=== PATIENT | male | born 1965 | race Caucasian/White ===

== ENCOUNTER → 2019-07-04 10:59 | Outpatient (BNVA) | payer MEDICARE, SELFPAY | PROVIDERS: Family Provider Family Medicine; PCP Family Medicine; Visit Provider Family Medicine | DX: E11.9 Type 2 diabetes mellitus without complications (principal); E78.2 Mixed hyperlipidemia; Z79.4 Long term (current) use of insulin; J44.9 Chronic obstructive pulmonary disease, unspecified; I10 Essential (primary) hypertension | CPT/HCPCS: 80053; 80061; 83036; 84443; 85025 ==

== ENCOUNTER → 2020-03-12 16:54 | Outpatient (BNVA) | payer MEDICARE, SELFPAY | PROVIDERS: Family Provider Family Medicine; PCP Family Medicine; Visit Provider Family Medicine | DX: E11.9 Type 2 diabetes mellitus without complications (principal) | CPT/HCPCS: 80053; 80061; 83036; 83721; 85025 ==

== ENCOUNTER → 2020-07-31 12:02 | Outpatient (BNVA) | payer MEDICARE, SELFPAY | PROVIDERS: PCP Family Medicine; Visit Provider Family Medicine | DX: E11.9 Type 2 diabetes mellitus without complications (principal); I10 Essential (primary) hypertension; E78.5 Hyperlipidemia, unspecified; J44.9 Chronic obstructive pulmonary disease, unspecified | CPT/HCPCS: 80053; 80061; 83036; 84443; 85025 ==

== ENCOUNTER → 2020-12-04 13:40 | Outpatient (BNVA) | payer MEDICARE, SELFPAY | PROVIDERS: PCP Family Medicine; Visit Provider Family Medicine | DX: E11.65 Type 2 diabetes mellitus with hyperglycemia (principal); J44.9 Chronic obstructive pulmonary disease, unspecified; E78.5 Hyperlipidemia, unspecified; I10 Essential (primary) hypertension; E11.9 Type 2 diabetes mellitus without complications; E78.2 Mixed hyperlipidemia; Z79.4 Long term (current) use of insulin | CPT/HCPCS: 80053; 80061; 83036; 84443; 85025 ==

== ENCOUNTER → 2020-12-29 08:43 | Outpatient (BNVA) | payer MEDICARE, SELFPAY | PROVIDERS: PCP Family Medicine; Visit Provider Family Medicine | DX: E11.65 Type 2 diabetes mellitus with hyperglycemia (principal); Z79.4 Long term (current) use of insulin; E78.2 Mixed hyperlipidemia; J44.9 Chronic obstructive pulmonary disease, unspecified; I10 Essential (primary) hypertension | CPT/HCPCS: 80053; 80061; 84443 ==

== ENCOUNTER 2021-01-14 13:28 | Outpatient (CLI) | payer MEDICARE, SELFPAY ==
--- NOTE | 2021-01-14 14:15 | USCV_ITS ---
Adolfo Barton Age: 55 Gender: M : 1965 Exam Date: 01/14/2021 14:27 Ordering Phys: Yun Jones Technologist: Exam [place] [facility] [place]: CHEST PAIN BP: 143 / 75 HR: 76 Rhythm: Sinus Technical Quality: Very technically difficult study MEASUREMENTS (Male / Female) Normal Values 2D ECHO LV Diastolic Diameter PLAX 3.9 cm 4.2 - 5.9 / 3.9 - 5.3 cm LV Systolic Diameter PLAX 3.1 cm IVS Diastolic Thickness 1.4 cm 0.6 - 1.0 / 0.6 - 0.9 cm IVS Systolic Thickness 1.5 cm LVPW Diastolic Thickness 1.4 cm 0.6 - 1.0 / 0.6 - 0.9 cm LVPW Systolic Thickness 1.5 cm LVOT Diameter 2.1 cm LV Ejection Fraction 2D Teich 41.2 % LV Ejection Fraction MOD 2C 53.6 % LV Ejection Fraction 2C AL 53.8 % LA Diameter 4.3 cm LA Width 3.9 cm LA Height 4.8 cm RA Width 4.2 cm RA Height 5.0 cm Aorta at Sinotubular Diameter 3.0 cm DOPPLER AV Peak Velocity 113.0 cm/s LVOT Peak Velocity 89.0 cm/s AV Area Cont Eq vti 3.5 cm squared AV Area Cont Eq pk 2.7 cm squared MV Area PHT 5.0 cm squared Mitral E to A Ratio 0.8 MV E' Velocity 34.5 cm/s Mitral E to MV E' Ratio 15.9 Mitral E to LV E' Lateral Ratio 15.9 Mitral E to LV E' Septal Ratio 16.3 TR Peak Velocity 144.0 cm/s TR Peak Gradient 8.3 mmHg TV Peak E Velocity 57.0 cm/s Right Atrial Pressure 3.0 mmHg Pulmonary Artery Systolic Pressu 11.3 mmHg FINDINGS Left Ventricle Possibly normal LV size and ejection fraction. Some features of left ventricular diastolic dysfunction. Segmental wall motion analysis difficult because of the poor ultrasonic window. Right Ventricle Possibly of normal size. Right Atrium Could not be visualized well Left Atrium Possibly of normal size. Mitral Valve No gross abnormalities noted. Leaflet could not visualized well Aortic Valve The leaflets could not visualize well. Normal velocity across the valve. Tricuspid Valve Tricuspid valve not well visualized. Pulmonic Valve Pulmonic valve not well visualized. Pericardium No pericardial effusion. Aorta Possibly of normal size CONCLUSIONS Possibly normal LV size and ejection fraction. Some features of left ventricular diastolic dysfunction. Segmental wall motion analysis difficult because of the poor ultrasonic window. Possibly normal chamber sizes. No significant stenotic or regurgitant lesions were noted. No pericardial effusion. No previous study is available for comparison. Dr Teddy Preciado MD FACC (Electronically Signed) Final Date: 14 January 2021 19:45 S
== END 2021-01-14 13:29 | disposition home or self-care (01) ==
PROVIDERS: PCP Family Medicine; Visit Provider Nurse Practitioner Family
DX: I25.10 Atherosclerotic heart disease of native coronary artery without angina pectoris (principal)
CPT/HCPCS: 93306

== ENCOUNTER → 2021-03-04 13:16 | Outpatient (BNVA) | payer MEDICARE, SELFPAY | PROVIDERS: PCP Family Medicine; Visit Provider Family Medicine | DX: J44.9 Chronic obstructive pulmonary disease, unspecified (principal); E11.65 Type 2 diabetes mellitus with hyperglycemia; Z79.4 Long term (current) use of insulin; I10 Essential (primary) hypertension; E78.2 Mixed hyperlipidemia; Z71.6 Tobacco abuse counseling; E11.42 Type 2 diabetes mellitus with diabetic polyneuropathy | CPT/HCPCS: 80053; 80061; 83036; 84443; 85025 ==

== ENCOUNTER 2021-03-27 09:43 | Outpatient (CLI) | payer MEDICARE, SELFPAY ==
[2021-03-27 10:07] VITALS: BMI 36.8
--- NOTE | 2021-03-27 10:07 | NMCV_ITS ---
NM becky perf SPECT r/s* [id number] Adolfo Barton Age: 56 Gender: M : 1965 Exam Date: 03/27/2021 10:07 Ordering Phys: Yun Jones Technologist: NILDA Joseph Exam Location: [facility] Indications: SHORTNESS OF BREATH STRESS TEST [facility] IMAGE PROTOCOL Rest/Stress 1 Exercise Day Radiopharmaceutical Dose (mCi) Administration Site Administered by Rest: Tc-99m 10.5 IV NILDA Harris Sestamibi Stress:Tc-99m 32.6 IV NILDA Harris Sestamibi Rest: 27-Mar-2021 60 Discovery 630 Stress: 27-Mar-2021 15 Discovery 630 Radiopharmaceutical was injected at 85 % maximum heart rate. Images obtained in supine and prone position. SPECT RESULTS Technical Quality: Good Raw Data Analysis: Normal Image Corrections: No attenuation or motion correction applied Summed Stress Score: 30 Summed Rest Score: 17 Summed Difference Score: 13 PERFUSION FINDINGS Large sized perfusion abnormality of moderate to severe severity in mid to apical anterior, mid to apical inferior and apical pierce with reversibility noted in entire anterior, mid anterolateral, mid inferior, mid infero-lateral and apical pierce on stress images. FUNCTIONAL RESULTS (calculated via Gated SPECT) Stress Image LV EF (%): 21 Stress EDV (mL):235 TID: 1.27 Stress ESV (mL):186 FUNCTIONAL FINDINGS: The left ventricle is dilated with stress. There is severely reduced left ventricular systolic function. The left ventricular ejection fraction is severely reduced with a value of 21%. There is global hypokinesis more pronounced in mid to apical anterior, lateral and apical pierce. Markedly increased end-diastolic end-systolic volumes. IMPRESSIONS 1. Large sized reversible perfusion abnormality of moderate to severe severity in basal to apical anterior, mid inferior, mid to apical lateral and apical pierce. 2. The left ventricle is dilated with stress. Transient ischemic dilation index increased at 1.27. 3. The left ventricular ejection fraction is severely reduced with a value of 21%. 4. There is global hypokinesis more pronounced in mid to apical anterior, lateral and apical pierce. 5. These findings are suggestive of multivessel coronary artery disease with large area of ischemia. 6. Decreased exercise tolerance. Equivocal EKG response to exercise due to baseline ST-T wave changes. Refer to separate report for details. 7. Scan indicates high risk for cardiac events. Chanell Esteves MD (Electronically Signed) Final Date: 30 March 2021 10:08 S
--- NOTE | 2021-03-27 10:07 | ECG_ITS ---
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 Interpretive Statements NAME OF STUDY: EXERCISE SESTAMIBI STRESS TEST INDICATION: Shortness of Breath Baseline blood pressure of 163/103 mm Hg, heart rate 89 beats per minute and oxygen saturation 98%. EKG showed normal sinus rhythm, normal axis. ST depression and biphasic to inverted T waves in leads II, 3, aVF. Possible old anteroseptal infarct. The patient exercised for 3 minutes 20 seconds on a standard Robby protocol. Patient attained a maximum heart rate of 144 beats per minute(88% of the maximum predicted heart rate) with a blood pressure at the peak exercise of 211/107 mmHg and oxygen saturation 96%. The EKG at the peak exercise revealed [address] depression in lead II 3, aVF with biphasic T waves. Patient did not have any chest pain or any significant arrhythmis with the exercise. The study was terminated due to exertional fatigue and shortness of breath. During the recovery phase, ST segment normalized but T waves become inverted in inferior leads. Blood pressure at the end of the recovery phase was 175/109 mm Hg with a heart rate of 85 beats per minute and oxygen saturation 98%. CONCLUSION: 1. Equivocal EKG response to treadmill exercise with horizontal up to [address] depression and T wave inversion in inferior leads (more pronounced at peak stress and at rest) 2. No exercise-induced chest pain or cardiac arrhythmia 3. Decreased exercise tolerance, attained a maximum of 4.6 METs. Maximum VO2 of 16.1 mL/kg/min. 4. Baseline hypertension with hypertensive response to exercise. 5. Perfusion scan will be documented separately. Electronically Signed On 03-30-2021 9:54:47 CDT by Chanell Esteves M.D. [id number]
[2021-03-27 12:03] VITALS: BP 175/109; PULSE 84
== END 2021-03-27 09:44 | disposition home or self-care (01) ==
LOC: CDL 09:46
PROVIDERS: PCP Family Medicine; Visit Provider Nurse Practitioner Family
DX: I20.9 Angina pectoris, unspecified (principal); R06.02 Shortness of breath; I10 Essential (primary) hypertension
CPT/HCPCS: 78452; 93017; A9500

== ENCOUNTER → 2021-06-29 12:13 | Outpatient (BNVA) | payer MEDICARE, SELFPAY | PROVIDERS: PCP Family Medicine; Visit Provider Family Medicine | DX: E11.65 Type 2 diabetes mellitus with hyperglycemia (principal); I10 Essential (primary) hypertension; E78.2 Mixed hyperlipidemia; J44.9 Chronic obstructive pulmonary disease, unspecified; E66.9 Obesity, unspecified; I25.10 Atherosclerotic heart disease of native coronary artery without angina pectoris; Z79.4 Long term (current) use of insulin | CPT/HCPCS: 80053; 80061; 83036; 85025 ==

== ENCOUNTER → 2021-09-23 09:44 | Outpatient (BNVA) | payer MEDICARE, SELFPAY | PROVIDERS: PCP Family Medicine; Visit Provider Internal Medicine | DX: I10 Essential (primary) hypertension (principal); E78.5 Hyperlipidemia, unspecified; E11.9 Type 2 diabetes mellitus without complications; I25.10 Atherosclerotic heart disease of native coronary artery without angina pectoris; R94.39 Abnormal result of other cardiovascular function study | CPT/HCPCS: 83036; 85025; 85610; 87635 ==

== ENCOUNTER → 2021-09-25 08:39 | Outpatient (BNVA) | payer MEDICARE, SELFPAY | PROVIDERS: PCP Family Medicine; Visit Provider Internal Medicine | DX: I10 Essential (primary) hypertension (principal); E78.5 Hyperlipidemia, unspecified; E11.9 Type 2 diabetes mellitus without complications; R94.39 Abnormal result of other cardiovascular function study | CPT/HCPCS: 80048; 80053; 80061 ==

== ENCOUNTER 2021-09-28 06:17 | Outpatient (CLI) | payer MEDICARE, SELFPAY ==
[2021-09-28] MEDS: diphenhydrAMINE 50 mg Capsule PO (06:30)
[2021-09-28 06:45] VITALS: BP 180/125; PULSE 89; RESP 16; TEMP 36.9; O2SAT 91; BMI 42.5
--- NOTE | 2021-09-28 07:00 | XACV_ITS ---
Exam Room: 2 Ht: 170 cm Wt: 123 kg BSA: 2.48 m2 Gender: Male : 1965 Any Known Allergies: Other Exam Priority: Routine Procedure(s): Procedure Description: Diagnostic procedure Procedure Description: Left Heart Catheterization Procedure Description: Left ventriculography Procedure Description: Coronary Angiography Diagnostic Cath Status: Elective Diagnostic Findings * 56-year-old man with past medical history of diabetes, hypertension and prior CO without interventions has been having chest pain symptoms on and off with exertion. He underwent stress test that showed large area of ischemia in multiple coronary territories. Plan for left heart cath with possible percutaneous coronary intervention. * Circumflex has no significant disease. * Right Coronary Artery is a small artery and has diffuse disease. * Proximal Left Anterior Descending to Mid Left Anterior Descending: total occlusion, J LUIS: 0 flow. Filled in the mid segment via collateral blood supply. * Left Main has no disease. * 1st Diagonal: total occlusion, J LUIS: 0 flow. * First Obtuse Marginal Branch Segment: obstructive 70% stenosis, J LUIS: 3 flow. * Second Obtuse Marginal Branch Segment: severe 90% stenosis, J LUIS: 3 flow. * Coronary angiography shows left dominance. Conclusions 1. Severe mulivessel coronary artery disease with PIPE INSPECTOR of LAD and Diagonal artery, filling distally via collaterals. Severe OM 1 and OM 2 disease. 2. Moderate left ventricular systolic dysfunction. Ejection fraction of 35-40% with significant hypokinesis of the apical wall. Recommendations * Outpatient follow up with Dr John for CABG evaluation. * Aggressive risk factor modification. * Outpatient cardiology follow up in 4 weeks. Interventional RX Recommendation: CABG Diagnostic RX Recommendation: CABG Ventriculography Ejection Fraction: 40.0 % Pressures Phase:Rest AO : 149 / 96 ( 120 ) @ 9:24:00 AM 143 / 85 ( 109 ) @ 9:37:00 AM 140 / 84 ( 108 ) @ 9:38:00 AM LV : 139 / 2 / 23 @ 9:36:00 AM 146 / 3 / 21 @ 9:37:00 AM 151 / 0 / 23 @ 9:37:00 AM Valves Phase:DefaultPhase AV : 9.0 @ 8:59:48 AM AV Mean Gradient: 17.0 @ 8:59:48 AM Clinical Evaluation EBL: 5mL-10mL Procedural Details Procedure Consent Obtained. Pre-Procedure Time Out. Identified patient by full name and date of as verbalized by the patient/guarantor. Does the consent match the physician's order: Yes. Accurate & Complete Informed Consent: Yes. Inpatient/Outpatient History & Physical on Chart: Yes. If H&P is completed, is and addenduem needed: Yes; If yes, is the addendum complete: Yes. Visualize and Verify Site with Patient/Guarantor: N/A. Relevant Radiology Images available: Yes. The risks, benefits, and alternatives of sedation and/or procedure were discussed by physician. The patient agrees to continue. Procedure started. [facility] Clinical Fraility Score: 4: Vulnerable. 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 Chest Pain Symptom Assessment: Typical Angina Symptoms. Cardiovascular Instability: No. Correct patient, site and procedure confirmed by cath team. Current diagnosis: Chest Pain. PERRLA. Strong, equal hand cupola repairer bilaterally. Lungs clear x 5 lobes. IV Site on Arrival: 20 gauge in the right anticubital. IV Fluids: 0.9% NaCl at KVO. 0 mL infused prior to lab tester. Pre Procedural Pulses: bilateral dorsalis pedis was 3+. Pre Procedural Pulses: bilateral posterior tibial was Doppled. Pre Procedural Pulses: bilateral radial was 3+. Oxygen started at 2liters/min via nasal canula. right groin was prepped with chloroprep then draped in the usual sterile fashion. right radial was prepped with chloroprep then draped in the usual sterile fashion. Baseline sample Acquired. HR: 86 BPM. Physician notified. Patient's family in CPRU. Dr. Olivares will update at the end of the procedure. Equipment: 6F - Radial. Cardiac Cath Pack. ACIST Manifold Kit Model BT 2000. Heparinized Saline (2 units/mL), 1000 mL bag. Viviane Gonzalez RN circulating with Junior Merrill RN, [facility]. Physician arrived. Physician scrubbed in. Immediate Pre-Procedure Time Out. Correct Patient: Yes; Correct Procedure: Yes; Correct Site: Yes; Correct Patient Position: Yes; Correct Supplies: Yes; Dried Flammable Prep: Yes; Blood Products Available: N/A. Lidocaine 1% infiltrated to the right radial. An attempt to gain access to the right radial artery was unsuccessful. Manual pressure was held as needed to stop the bleeding. A 2nd attempt to gain access to the right radial artery was unsuccessful. Manual pressure was held as needed to stop the bleeding. Add inventory: Micropuncture kit, 6 fr sheath. Unable to obtain radial access. MD attempting to gain access in the Femoral artery. Lidocaine 1% infiltrated to the right groin. Arterial access obtained with micropuncture set and Ultrasound guidance. A 5 mexican JL4 catheter in over wire. Multiple views taken of left coronary artery. Catheter removed over the standard wire. A 5 mexican JR4 catheter in over wire. Dr. John called at Dr. Kiranims request with no answer. Multiple views taken of right coronary artery. Catheter removed over the standard wire. A 5 mexican Angled Pig catheter in over wire. EDP Sample taken: LV 139/2,23; HR: 75 BPM; SpO2: 97%. LV gram performed in MC @ 10 mL/second for a total of 30 mL. EDP Sample taken: LV 146/3,21; HR: 77 BPM; SpO2: 97%. Pullback taken: LV 151/0,23; AO 143/85(109); Mean: 17mmHg, Peak to Peak: 9mmHg, SEP: 10sec/min; HR: 78 BPM; SpO2: 97%. Catheter removed over the standard wire. A Right femoral angiogram was performed to determine safe placement of closure device. Angioseal placed without complications. No signs or symptoms of hematoma noted. Sterile dressing applied per usual sterile fashion. LOT # [id number] EXP . Post Procedure: Pulses reassessed and unchanged. PERRLA. Strong, equal hand cupola repairer bilaterally. No VTE prophylaxis required. Medication's Wasted: Heparin = 1000 Units. Medication's Wasted: Nitro = 50 mg. Total IV fluids: 75 mL. A Suture was successful obtaining hemostatsis at the Right Femoral artery insertion site. Post-op diagnosis: Multi Vessel CAD. Complications: none. Estimated blood loss: 5mL-10mL. Responsiveness - Normal response to verbal stimuli; alert and oriented, PERRLA. Airway - Unaffected, no intervention required; spontaneous ventilation. Circulation: W/N/L, pulses unchanged. Nausea/Vomiting: No. Procedure completed. Patient transferred by bed to CPRU. Vital chart was stopped. Access Site Site: Right Femoral artery Sheath Size: 6 Fr Hemostasis Method: Suture Hemostasis Success: Successful Procedure Medications Start: 7:51 AM Stop: 7:51 AM Medication: Versed Amount: 1 mg Route: I.V. Start: 7:51 AM Stop: 7:51 AM Medication: Fentanyl Amount: 50 mcg Route: I.V. Start: 8:03 AM Stop: 8:03 AM Medication: Versed Amount: 1 mg Route: I.V. Start: 8:18 AM Stop: 8:18 AM Medication: Versed Amount: 1 mg Route: I.V. Start: 8:18 AM Stop: 8:18 AM Medication: Fentanyl Amount: 25 mcg Route: I.V. I, the attending physician, have reviewed and verified all procedure medications. Yes, all medications given per verbal order History/Risk Factors Hypertension: Yes Dyslipidemia: Yes Peripheral Arterial Disease (PAD): No Myocardial Infarction (CO): Yes Obesity: Yes Renal Disease: No Tobacco Use: Current/Recent(w/in 1 year) Prior Interventions PCI: No CABG: No Valve Surgery: No Report Signatures Finalized by Reji Olivares MD on 10/05/2021 02:53 PM
--- NOTE | 2021-09-28 07:46 | P.HP_ITS ---
Same Day Surgery H&P Indication for Procedure/HPI DATE OF PROCEDURE: September 28, 2021 CHIEF COMPLAINT/INDICATIONFOR SURGICAL PROCEDURE: Chest pain/ abnormal stress test PREOP DIAGNOSIS: Chest pain/ abnormal stress test PLANNED PROCEDURE: Operation Date: 09/28/21 07:00 Proposed Procedures p Cardiac Catheterization(Left) - Reji Olivares M.D Possible percutaneous coronary intervention 56-year-old man with past medical history of diabetes, hypertension and prior [place] without interventions has been having chest pain symptoms on and off with exertion. He underwent stress test that showed large area of ischemia in multiple coronary territories. Plan for left heart cath with possible percutaneous coronary intervention ROS CONSTITUTIONAL: No fever or chills. [] EYES: No blurring of vision or other visual disturbances lately. [] ENT: No hoarseness of voice, auditory disturbances or sore throat. [] CARDIOVASCULAR: As mentioned above. [] RESPIRATORY: No significant cough. [] GASTROINTESTINAL: No hematemesis or melena. [] GENITOURINARY: No dysuria or hematuria. [] INTEGUMENTARY: No skin rashes or history of skin cancer. [] NEURO: No transient ischemic attacks or amaurosis. [] PSYCHIATRIC: No history of psychosis or major depression. [] HEMATOLOGIC: No bleeding disorders or significant anemia. [] ENDOCRINE: No history of polyuria or polydipsia. [] MUSCULOSKELETAL: No recent joint pain or swelling. [] ALLERGY/IMMUNOLOGY: As mentioned above. [] Medications/Allergies* Home Medications Medication Instructions Recorded Confirmed Type aspirin 81 mg tablet,delayed 81 mg PO ONCE 07/04/19 09/28/21 History release (Adult Low Dose Aspirin) insulin human U-100 NPH-regulr 75 unit SUBCUT DAILY ml 04/14/21 09/28/21 History 70-30 mix 100 unit/mL subcutaneous susp (Humulin 70/30 U-100 Insulin) Allergies/Adverse Reactions Allergy/AdvReac Type Severity Reaction Status Date / Time bee venom protein (honey bee) Allergy ALGY-Difficulty Verified 09/28/21 07:43 Breathing Current Medications: Generic Name Dose Route Start Last Admin Trade Name Freq PRN Reason Stop Dose Admin Sodium Chloride 1,000 mls @ 50 mls/hr 09/28/21 06:00 09/28/21 06:56 Sodium Chloride 0.9% IV 09/29/21 01:59 Not Given .Q20H ONE Pertinent History/Comorbid Conditions* Medical History (Updated 04/17/21 @ 18:33 by Jeramy Newton MD) COPD (chronic obstructive pulmonary disease) Coronary artery disease CVA (cerebral vascular accident) Diabetes Hyperlipidemia Hypertension Myocardial infarct Obesity Family History (Updated 07/04/19 @ 09:44 by Eboni Canales LPN) Diabetes CAD (coronary artery disease) Myocardial infarction Cancer Hypertension Social History Smoking and tobacco status: current every day smoker (1 pack per week, since age 13.) Alcohol intake: former Marital status: Life Partner service: No Current occupational status: disabled Current gender identity: Male Special dave needs: No Pertinent Exam Findings alert, oriented x 3, clear to auscultation bilaterally and regular rate & rhythm Conscious Sedation Assessment PATIENT ASSESSED PRIOR TO SEDATION, WITH NO CHANGE NOTED: Yes AIRWAY EVAL/ANESTHESIA PLAN: normal airway, see other exam findings, ASA III, Monitored Anesthesia, Local Anesthesia, Risks, benefits & alternatives of sedation and/or procedure discussed and Patient agrees to continue as planned Recommendations Surgery/Procedure today (Left heart cath with possible percutaneous coronary intervention) Coding Level of Care Code Acute Community Associate for Mustapha Bone
--- NOTE | 2021-09-28 09:24 | CT_ITS ---
WS: [id number] CT HEAD NONCONTRAST HISTORY: Fall TECHNIQUE: Contiguous axial imaging performed through the brain in 2.5 mm imaging. Bone and soft tiss ue windows. Sagittal and coronal reformats reviewed. All CT scans at [facility] use at least one of these dose optimization techniques: automated exposure control; mA and/or kV adjustment per pa tient size (includes targeted exams where dose is matched to clinical indication); or iterative recon struction. DLP: 3196.75 mGy.cm COMPARISON: None available. There is diffuse increased density within the vascular system from recent contrast injection. Small a reas of acute hemorrhage would be obscured by this amount of vascular enhancement. There are no large areas of hemorrhage or mass effect. There is moderate atrophy and diffuse low attenuation. Age-indeterminate but at least subacute infarc t and probably chronic in the LEFT parietal lobe. No enhancing masses. Ventricles: Ventricles are diffusely dilated no intraventricular blood is identified. Prominent thir d ventricle and fourth ventricle. Paranasal sinuses: As visualized are clear. Mastoid air cells: Well pneumatized. Calvarium and scalp: Skull is intact with no soft tissue edema or swelling. CT/CT head wo con* [id number] IMPRESSION: 1. Intravascular enhancement from recent IV injection. Increased density withi n the vascular system would obscure small areas of acute hemorrhage or blood. 2. No large intracranial hemorrhage. 3. Age-indeterminate but not acute infarct LEFT parietal lobe. 4. Diffuse moderate ventriculomegaly. May be on the basis of atrophy. 5. No fracture.
--- NOTE | 2021-09-28 09:35 | CT_ITS ---
WS: [id number] CT CERVICAL SPINE HISTORY: FALL TECHNIQUE: Contiguous 2.5 mm axial imaging performed through the entire cervical spine. Sagittal and coronal reformats also performed. All CT scans at [facility] use at least one of these dose o ptimization techniques: automated exposure control; mA and/or kV adjustment per patient size (include s targeted exams where dose is matched to clinical indication); or iterative reconstruction. DLP: 889.91 mGy.cm COMPARISON: None available. Examination is limited by motion artifact. Posterior alignment is normal. Facet joints are normally a ligned. Craniocervical junction is normal. No fracture of the odontoid process taking into considerat ion the extent of motion. Lateral masses are aligned. No high-grade stenosis throughout the cervical spine. No disc protrusions. Upper lung mckenna limited by motion. Small amount of plaque at the origin of the LEFT subclavian artery. Moderate calcified plaque at the carotid bifurcations. Percent stenosis near 50% but limited secondary to motion. Small bilateral occipital lymph nodes. CT/CT cervical spin wo con* [id number] IMPRESSION: 1. Study is compromised by motion artifact. 2. No fractures are identified taking into consideration the extent of motion. 3. Cervical carotid artery plaque, bilateral.
--- NOTE | 2021-09-28 11:47 | PC.NURSE ---
HR: 71 O2: 93 room air BP: 156/98 RR: 22 TEMP: 97.6 oral
--- NOTE | 2021-09-28 13:24 | PC.NURSE ---
performed ambulation trial per nurse request. Patient stated that he was stiff and had a slight limp in his step. He tolerated the trial well with no help need and no stressers indicated. Patient is back in his room eating lunch.
--- NOTE | 2021-09-28 14:31 | PM.SDS ---
Short Stay Summary Providers Date of Admit/Discharge: 10/05/21 Attending Provider: Reji Olivares M.D Primary Care Provider: Alicia De MD Chief Complaint: [id number] HPI History of Present Illness 56-year-old man with past medical history of diabetes, hypertension and prior ND without interventions has been having chest pain symptoms on and off with exertion.? He underwent stress test that showed large area of ischemia in multiple coronary territories. Plan for left heart cath with possible percutaneous coronary intervention Review of Systems Const: Denies: fever(s) or chills Eyes: Denies: change in vision Card: Reports: chest pain and dyspnea on exertion; Denies: palpitations, swelling of feet/ankles, lightheadedness or orthopnea Resp: Denies: dyspnea, productive cough or non-productive cough GI: Denies: abdominal pain, nausea or vomiting Musc: Reports: joint pain; Denies: neck pain or back pain Neuro: Denies: headache(s) or dizziness Psych: Denies: anxiety or depression Avery/Lymph: Reports: easy bruising; Denies: easy bleeding Home Meds/Allergies Home Medications and Allergies Home Medications Medication Instructions Recorded Confirmed Type aspirin 81 mg tablet,delayed 81 mg PO ONCE 07/04/19 10/05/21 History release (Adult Low Dose Aspirin) insulin human U-100 NPH-regulr 75 unit SUBCUT DAILY ml 04/14/21 10/05/21 History 70-30 mix 100 unit/mL subcutaneous susp (Humulin 70/30 U-100 Insulin) Allergies Allergy/AdvReac Type Severity Reaction Status Date / Time bee venom protein (honey bee) Allergy ALGY-Difficulty Verified 10/05/21 13:37 Breathing PFSH Acute PFSH: Medical History COPD (chronic obstructive pulmonary disease) Coronary artery disease CVA (cerebral vascular accident) Diabetes Hyperlipidemia Hypertension Myocardial infarct Obesity Family History Other CAD (coronary artery disease) Cancer Diabetes Hypertension Myocardial infarction Social History Smoking and tobacco status: current every day smoker (1 pack per week, since age 13.) Alcohol intake: former Marital status: Life Partner service: No Current occupational status: disabled Current gender identity: Male Special dave needs: No Vitals/I&O/Wt Last Vital Signs Temp 98.4 F 09/28/21 06:45 Pulse 89 09/28/21 06:45 Resp 16 09/28/21 06:45 BP 180/125 09/28/21 06:45 Pulse Ox 91 09/28/21 06:45 Weight last 48 hrs Weight 272 lb Physical Exam Narrative: GENERAL: Patient is alert, awake and oriented x3. [] NECK: No jugular vein distension. [] HEENT: No cyanosis. No icterus. No pallor. [] HEART: Regular S1 and S2. No murmur, rub or gallop. [] LUNGS: Clear to auscultate bilaterally. [] ABDOMEN: Soft, nontender and nondistended. Positive bowel sounds. No guarding, rebound or tenderness. [] CENTRAL NERVOUS SYSTEM: Grossly nonfocal. [] EXTREMITIES: Lower extremities with 1+ edema bilaterally. Pulses palpable in the lower extremities, both dorsalis pedis and posterior tibial. [] Hospital Course Hospital Course 56-year-old man with past medical history of diabetes, hypertension and prior ND without interventions has been having chest pain symptoms on and off with exertion.? He underwent stress test that showed large area of ischemia in multiple coronary territories. Plan for left heart cath with possible percutaneous coronary intervention Left heart cath showed chronic total occlusion of proximal to mid LAD. 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 Ostial OM branch has significant disease. RCA is diffusely diseased and is small sized vessel. Plan for outpatient CT surgery evaluation for possible CABG (case discussed with CT surgery). [facility]cath [facility], he had a mechanical fall. He underwent CT head to rule out intracranial bleed. He did not have any symptoms from fall. At time of discharge is physical exam and neurological exams are normal. SSS Data Data Completed and Pending: Completed Studies During Hospitalization Category Date Time Status CT cervical spin wo con* 13720 Rout ine Cat Scan 09/28/21 09:[address] head wo con* 7 0450 Stat Cat Scan 09/28/21 09:24 Completed Pending at discharge Category Date Time Status ADMINISTRATIVE RESIDENT request for service Routin e Exams 09/28/21 07:00 Taken Discharge Plan Discharge Patient Disposition: Home Prescriptions: Continued aspirin [Adult Low Dose Aspirin] 81 mg tablet,delayed release (DR/EC) 81 mg PO ONCE 0RF albuterol sulfate [ProAir HFA] 90 mcg/actuation HFA aerosol inhaler 2 puff INHALATION QID PRN (Reason: shortness of breath or wheezing) Qty: 8.5 4RF carvedilol 12.5 mg tablet See Rx Instructions .ROUTE .COMPLEX Qty: 60 5RF Dose Instruction: Take 1 tablet by mouth twice daily Rx Instructions: Take 1 tablet by mouth twice daily Jardiance 25 mg tablet 25 mg PO DAILY Qty: 90 1RF lisinopril 10 mg tablet 20 mg PO DAILY Qty: 180 1RF Humulin 70/30 U-100 Insulin 100 unit/mL (70-30) suspension 75 unit SUBCUT DAILY 0RF (DME) pen needle, diabetic [Sure-Fine Pen [place]] 31 gauge x 5/16 needle See Rx Instructions .Route Qty: 100 1RF Rx Instructions: WEEKLY pregabalin 75 mg capsule 75 mg PO BID Qty: 60 2RF isosorbide mononitrate 120 mg tablet extended release 24 hr See Rx Instructions .ROUTE .COMPLEX Qty: 90 1RF Dose Instruction: TAKE 1 TABLET BY MOUTH ONCE DAILY IN THE MORNING Rx Instructions: TAKE 1 TABLET BY MOUTH ONCE DAILY IN THE MORNING rosuvastatin 10 mg tablet See Rx Instructions .ROUTE .COMPLEX Qty: 30 0RF Dose Instruction: Take 1 tablet by mouth once daily Rx Instructions: Take 1 tablet by mouth once daily nitroglycerin 0.4 mg tablet, sublingual See Rx Instructions .ROUTE .COMPLEX Qty: 25 0RF Dose Instruction: DISSOLVE ONE TABLET UNDER THE TONGUE EVERY 5 MINUTES NEEDED FOR CHEST PAIN. DO NOT EXCEED A TOTAL OF 3 DOSES IN 15 MINUTES Rx Instructions: DISSOLVE ONE TABLET UNDER THE TONGUE EVERY 5 MINUTES NEEDED FOR CHEST PAIN. DO NOT EXCEED A TOTAL OF 3 DOSES IN 15 MINUTES No Action Ozempic 0.25 mg or 0.5 mg(2 mg/1.5 mL) pen injector 0.5 mg SUBCUT .jeanne Qty: 1.5 2RF Rx Instructions: inject 0.5 mg subcutaneously 1 time weekly Discharge Orders: Discharge Order (Routine); Ordered 09/28/21 Ordered By: Reji Olivares Referrals: Reji Olivares M.D [Physician] - 1 month (Please follow-up with Dr. Olivares on November 02 at 12:15P.M. If you have any questions or need to reschedule. Please call: ) Igor Jhon MD [Physician] - (Contacted Ina at [facility], Dr. John's nurse will contact you to schedule an follow-up appointment. If you have any questions, please call : ) Yun Jones FNP [Nurse Practitioner] - 7-10 days (Please follow-up with Yun Jones on October 05 at 1:15A.M. If you have any questions or need to reschedule. Please call: ) Diet: Diabetic Activity: Increase activity as tolerated Patient Instructions: Coronary Artery Disease (DC), Heart Catheterization (DC), COPD Stoplight, Post Angiogram Home Care Instructions Activity Restrictions/Additional Instructions: Please do not lift more than 5 pounds of weight for the next 5 days Discharge Date/Time: 09/28/21 16:00 Attestations Medical Necessity Statement*: Care not expected to cross 2 midnights. 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
== END 2021-09-28 16:00 | disposition home or self-care (01) ==
LOC: CCL 06:18 → CSU 09:53
PROVIDERS: PCP Family Medicine; Visit Provider Internal Medicine
DX: I25.10 Atherosclerotic heart disease of native coronary artery without angina pectoris (principal); R07.9 Chest pain, unspecified; R94.39 Abnormal result of other cardiovascular function study; E11.9 Type 2 diabetes mellitus without complications; I10 Essential (primary) hypertension; I25.2 Old myocardial infarction; Z79.82 Long term (current) use of aspirin; Z79.4 Long term (current) use of insulin; J44.9 Chronic obstructive pulmonary disease, unspecified; E78.5 Hyperlipidemia, unspecified; E66.9 Obesity, unspecified; Z68.41 Body mass index [BMI] 40.0-44.9, adult; F17.210 Nicotine dependence, cigarettes, uncomplicated
CPT/HCPCS: 36415; 70450; 72125; 93458; C1760; C1769; C1887; C1894; J1644; J2250; J3010; J3490; J7030; Q0163; Q9967

== ENCOUNTER 2021-09-30 13:12 | Emergency (ER) | payer MEDICARE, SELFPAY ==
[2021-09-30 13:20] VITALS: BP 188/121; PULSE 87; RESP 18; TEMP 36.4; O2SAT 97; BMI 42.0
--- NOTE | 2021-09-30 13:26 | PC.NURSE ---
PT BP IN TRIAGE 188/121. PT STATES HE TAKES BP AT HOME BUT DID NOT TAKE IT TODAY. PRIMARY SUPERVISOR PATCHING, MCKAYLA, NOTIFIED.
[2021-09-30 13:34] VITALS: BP 184/136; PULSE 75; RESP 18; O2SAT 97
--- NOTE | 2021-09-30 13:43 | CT_ITS ---
WS: [id number] CT LUMBAR SPINE, noncontrast. HISTORY: trauma, back pain TECHNIQUE: Contiguous 2.5 mm axial imaging are performed. Sagittal and coronal reformats are submitte d and reviewed. All CT scans at [place] use at least one of these dose optimization techni ques: automated exposure control; mA and/or kV adjustment per patient size (includes targeted exams w here dose is matched to clinical indication); or iterative reconstruction. IV contrast: None DLP: 2249.46 mGy.cm COMPARISON: None available. L4 anterolisthesis by 4.3 mm. No vertebral body fractures. Mild disc space narrowing throughout and s mall endplate osteophytes. L1-2: Normal. L2-3: Normal. L3-4: Mild annular disc bulge. No stenosis. L4-5: Mild unroofing of the disc. There is very mild contact on the ventral thecal sac and the claudio sing nerve roots in the subarticular recesses. Very mild foraminal narrowing, RIGHT greater than LEFT . There is a small disc protrusion in the RIGHT foramen contacting the ascending L4 nerve root. Moder ate facet joint arthritis with bony fragmentation. No acute fracture. L5-S1: Mild annular disc bulge with a central protrusion. Disc protrusion contacting the ventral thec al sac. Slightly greater contact on the RIGHT S1 nerve root. Moderate calcification within the abdominal aorta. CT/CT lumbar spine wo con* [id number] IMPRESSION: 1. No acute lumbar spine fracture. 2. Grade 1 anterolisthesis of L4. 3. Mild bilateral foraminal narrowing at L4-5 with a small disc protrusion con tacting the RIGHT L4 nerve root. 4. Central disc protrusion contacting the RIGHT S1 nerve root. 5. No high-grade central or foraminal stenosis. Mild central and subarticular recess stenosis at the L4-5 level.
--- NOTE | 2021-09-30 13:45 | ED_ITS ---
HPI - Back Pain/Injury General: Chief Complaint: Back Pain/Injury Stated Complaint: low back pain Time Seen by Provider: 09/30/21 13:28 Source: patient Mode of arrival: ambulatory Limitations: no limitations History of Present Illness: Patient is a 56-year-old male who presents to ED today along with his for concerns of lower back pain. Patient tells me he had a cardiac catheterization 2 days ago and states after the procedure they were transferring him from the OR table to a gurney when the gurney accidentally slipped causing him to fall to the ground. Patient states he obtained CT imaging of his head and neck which were negative but did not address his lower back pain. Patient states he was discharged later that day. He states he is not having a headache and neck pain seems to be improving. He has chronic neck pain and states that is currently at his baseline. Patient states his inguinal cath access site appears well. He has not noticed any drainage or swelling to the area. Patient noted to be hypertensive upon arrival. He states he has not taken his normal BP medications today. States his blood pressure normally runs in the 130 systolic at home. MD elicited complaint: back pain and back injury Pertinent past history: recent trauma Onset (ago): day(s) Timing: constant Similar Symptoms Previously: No Location: lumbar spine Radiation: none Exacerbating factors: movement Context: fall Associated symptoms: Reports no associated symptoms; Deny abdominal pain, chills, difficulty walking, fatigue, fever(s), hematuria or syncope Work related injury: No Review of Systems Const: Denies: fever(s), chills, body aches, fatigue or malaise Card: Denies: chest pain, palpitations, irregular heart rhythm, lightheadedness, syncope or pre-syncope Resp: Denies: dyspnea GI: Denies: abdominal pain : Reports: other (no change in urine color/output); Denies: flank pain or hematuria Musc: Reports: neck pain (chronic-at baseline) and back pain; Denies: extremity pain, extremity swelling, joint pain or joint swelling Neuro: Denies: headache(s), numbness in extremities, weakness in extremities, sensory changes, difficulty walking, dizziness or confusion PFS ED PFSH: Medical History COPD (chronic obstructive pulmonary disease) Coronary artery disease CVA (cerebral vascular accident) Diabetes Hyperlipidemia Hypertension Myocardial infarct Obesity Family History Other CAD (coronary artery disease) Cancer Diabetes Hypertension Myocardial infarction Social History Smoking and tobacco status: current every day smoker (1 pack per week, since age 13.) Alcohol intake: former Marital status: Life Partner service: No Current occupational status: disabled Current gender identity: Male Special dave needs: No Physical Exam Const: COMMON NORMALS: no acute distress, patient oriented x3, no limitations and alert NUTRITIONAL APPEARANCE: obese morbidly obese ORIENTATION/CONSCIOUSNESS: Yes awake, Yes oriented to person, Yes oriented to place and Yes oriented to time Extremity: NARRATIVE EXTREMITY EXAM: femoral/inguinal site appears clean/no swelling noted Neuro: COMMON NORMALS: patient oriented x3, moves all extremities, no focal motor deficits and no sensory deficits noted SENSORIUM/ORIENTATION: Yes alert, Yes oriented to person, Yes oriented to place and Yes oriented to time Course Vital Signs: Vital signs: Vital Signs Temperature 97.5 F L 09/30/21 13:20 Pulse Rate 75 09/30/21 13:34 Respiratory Rate 18 09/30/21 13:34 Blood Pressure 184/136 09/30/21 13:34 Pulse Oximetry 97 09/30/21 13:34 MDM - Back Pain/Injury Medical Decision Making Patient here with lower back pain following a fall from the OR table after cardiac catheterization. Patient states he already had his head and cervical spine scans and states he does not have any complaints regarding these areas. He states surgical incision seems to be doing well. CT lumbar spine showing chronic findings but no acute spinal fractures. I think any other etiologies for patient's lower back pain including complications from his recent cardiac catheterization be incredibly low. Recommend he follow-up with his primary care provider early next week for reevaluation. Strict return to ED precautions verbally given. Patient still hypertensive at discharge. He is not having any chest pain, shortness of breath, difficulty breathing, headache, or visual changes. Recommend he take his home medications as scheduled and keep a blood pressure log to follow-up with primary care. Labs Radiology Impressions Lumbar Spine CT 09/30/21 13:43 IMPRESSION: 1. No acute lumbar spine fracture. 2. Grade 1 anterolisthesis of L4. 3. Mild bilateral foraminal narrowing at L4-5 with a small disc protrusion contacting the RIGHT L4 nerve root. 4. Central disc protrusion contacting the RIGHT S1 nerve root. 5. No high-grade central or foraminal stenosis. Mild central and subarticular recess stenosis at the L4-5 level. Discharge Plan Discharge Patient Disposition: Home Clinical Impression: Contusion of lower back Qualifiers: Encounter type: initial encounter Qualified Code(s): S30.0XXA - Contusion of lower back and pelvis, initial encounter Condition: Stable Prescriptions: No Action aspirin [Adult Low Dose Aspirin] 81 mg tablet,delayed release (DR/EC) 81 mg PO ONCE 0RF albuterol sulfate [ProAir HFA] 90 mcg/actuation HFA aerosol inhaler 2 puff INHALATION QID PRN (Reason: shortness of breath or wheezing) Qty: 8.5 4RF carvedilol 12.5 mg tablet See Rx Instructions .ROUTE .COMPLEX Qty: 60 5RF Dose Instruction: Take 1 tablet by mouth twice daily Rx Instructions: Take 1 tablet by mouth twice daily Jardiance 25 mg tablet 25 mg PO DAILY Qty: 90 1RF lisinopril 10 mg tablet 20 mg PO DAILY Qty: 180 1RF Humulin 70/30 U-100 Insulin 100 unit/mL (70-30) suspension 75 unit SUBCUT DAILY 0RF (DME) pen needle, diabetic [Sure-Fine Pen [place]] 31 gauge x 5/16 needle See Rx Instructions .Route Qty: 100 1RF Rx Instructions: WEEKLY pregabalin 75 mg capsule 75 mg PO BID Qty: 60 2RF isosorbide mononitrate 120 mg tablet extended release 24 hr See Rx Instructions .ROUTE .COMPLEX Qty: 90 1RF Dose Instruction: TAKE 1 TABLET BY MOUTH ONCE DAILY IN THE MORNING Rx Instructions: TAKE 1 TABLET BY MOUTH ONCE DAILY IN THE MORNING rosuvastatin 10 mg tablet See Rx Instructions .ROUTE .COMPLEX Qty: 30 0RF Dose Instruction: Take 1 tablet by mouth once daily Rx Instructions: Take 1 tablet by mouth once daily nitroglycerin 0.4 mg tablet, sublingual See Rx Instructions .ROUTE .COMPLEX Qty: 25 0RF Dose Instruction: DISSOLVE ONE TABLET UNDER THE TONGUE EVERY 5 MINUTES NEEDED FOR CHEST PAIN. DO NOT EXCEED A TOTAL OF 3 DOSES IN 15 MINUTES Rx Instructions: DISSOLVE ONE TABLET UNDER THE TONGUE EVERY 5 MINUTES NEEDED FOR CHEST PAIN. DO NOT EXCEED A TOTAL OF 3 DOSES IN 15 MINUTES Discharge Orders: Discharge ED (Routine); Ordered 09/30/21 Ordered By: Yuni Murillo Referrals: Alicia De MD [Primary Care Provider] - Coding Level of Care Code ED Electronic Systems Technician for Chg Fwd Exam Problem Focused
[2021-09-30] MEDS: carvedilol 12.5 mg Tablet PO (13:48)
[2021-09-30 15:16] VITALS: BP 172/111; PULSE 85; RESP 16; O2SAT 96
== END 2021-09-30 15:29 | disposition home or self-care (01) ==
PROVIDERS: Emergency Provider Physician Assistant; PCP Family Medicine
DX: S30.0XXA Contusion of lower back and pelvis, initial encounter (principal); G89.29 Other chronic pain; M54.2 Cervicalgia; F17.210 Nicotine dependence, cigarettes, uncomplicated; W04.XXXA Fall while being carried or supported by other persons, initial encounter; Y92.234 Operating room of hospital as the place of occurrence of the external cause; Z79.82 Long term (current) use of aspirin; Z79.4 Long term (current) use of insulin; E11.9 Type 2 diabetes mellitus without complications
CPT/HCPCS: 72131; 99283

== ENCOUNTER → 2021-10-05 13:20 | Outpatient (BNVA) | payer MEDICARE, SELFPAY | PROVIDERS: PCP Family Medicine; Visit Provider Nurse Practitioner Family | DX: Z09 Encounter for follow-up examination after completed treatment for conditions other than malignant neoplasm (principal); I25.10 Atherosclerotic heart disease of native coronary artery without angina pectoris; F17.210 Nicotine dependence, cigarettes, uncomplicated; I25.2 Old myocardial infarction; Z79.82 Long term (current) use of aspirin; I10 Essential (primary) hypertension | CPT/HCPCS: 80048; 99214 ==

== ENCOUNTER → 2021-10-08 11:02 | Outpatient (BNVA) | payer MEDICARE, SELFPAY | PROVIDERS: PCP Family Medicine; Visit Provider Thoracic Surgery (Cardiothoracic Vascular Surgery) | DX: I51.9 Heart disease, unspecified (principal); F17.210 Nicotine dependence, cigarettes, uncomplicated | CPT/HCPCS: 99203 ==

== ENCOUNTER 2021-10-14 07:27 | Outpatient (CLI) | payer MEDICARE, SELFPAY ==
--- NOTE | 2021-10-14 08:00 | USCV_ITS ---
ArnaldoshilpiAdolfo Age: 56 Gender: M : 1965 Exam Date: 10/14/2021 07:39 Ordering Phys: Igor John MD (And[email or web address] [place] Technologist: JOSE LUIS Exam Location: [facility] [place] Indication: BLE MAPPING FOR CAD RIGHT LEFT LOWER EXTREMITY Diameter Diameter (cm) (cm) 0.60 High Thigh 0.46 0.29 Mid Thigh 0.41 0.36 Above Knee 0.37 0.36 Below Knee 0.32 0.32 Mid Calf 0.22 0.37 Ankle 0.26 RIGHT LEFT UPPER EXTREMITY The Upper Extremity section is not evaluated at this time Findings Veins appear to be easily compressible Measurements as mentioned above Conclusions Normal caliber ,patent superficial veins bilaterally, in the lower extremities. No evidence of venous thrombosis Dr Teddy Preciado MD FACC (Electronically Signed) Final Date: 18 Oct 2021 21:27 S
== END 2021-10-14 07:28 | disposition home or self-care (01) ==
LOC: RAD 07:28
PROVIDERS: PCP Family Medicine; Visit Provider Thoracic Surgery (Cardiothoracic Vascular Surgery)
DX: I25.10 Atherosclerotic heart disease of native coronary artery without angina pectoris (principal)
CPT/HCPCS: 93970

== ENCOUNTER 2021-10-28 12:22 | Outpatient (CLI) | payer MEDICARE, SELFPAY ==
--- NOTE | 2021-10-28 14:08 | PFTS_ITS ---
Date of Study:10/28/21 Date of Dictation: 11/02/2021 MECHANICS: Postbronchodilator forced vital capacity (FVC) is reduced 2.61 L 63% predicted Postbronchodilator forced expiratory volume in one second (FEV1) is moderately reduced. 2.04L 63% predicted. FEV1/FVC is normal. There is no significant bronchodilator response. FLOW VOLUME LOOP: sloping of expiratory limb suggestive of severe airflow obstruction . LUNG VOLUMES: Total lung capacity (TLC) is normal. Residual volume (RV) is normal. DIFFUSING CAPACITY FOR CARBON MONOXIDE: normal 94% INTERPRETATION: The spirometry consistent with moderate restriction. There is no significant bronchodilator response. Lung volumes are normal. Gas transfer normal. Correlate clinically MTDD
== END 2021-10-28 12:23 | disposition home or self-care (01) ==
LOC: RT 12:23
PROVIDERS: PCP Family Medicine; Visit Provider Thoracic Surgery (Cardiothoracic Vascular Surgery)
DX: R06.02 Shortness of breath (principal)
CPT/HCPCS: 94060; 94726; 94729; J7611

== ENCOUNTER → 2021-11-02 12:07 | Outpatient (BNVA) | payer MEDICARE, SELFPAY | PROVIDERS: PCP Family Medicine; Visit Provider Internal Medicine | DX: Z09 Encounter for follow-up examination after completed treatment for conditions other than malignant neoplasm (principal); I10 Essential (primary) hypertension; R94.39 Abnormal result of other cardiovascular function study; E78.5 Hyperlipidemia, unspecified; F17.200 Nicotine dependence, unspecified, uncomplicated | CPT/HCPCS: 99214 ==

== ENCOUNTER → 2021-11-27 09:43 | Outpatient (BNVA) | payer MEDICARE, SELFPAY | PROVIDERS: PCP Family Medicine; Visit Provider Internal Medicine Pulmonary Disease | DX: Z86.73 Personal history of transient ischemic attack (TIA), and cerebral infarction without residual deficits (principal); J44.9 Chronic obstructive pulmonary disease, unspecified; E11.8 Type 2 diabetes mellitus with unspecified complications; E78.5 Hyperlipidemia, unspecified; I10 Essential (primary) hypertension; F17.210 Nicotine dependence, cigarettes, uncomplicated; R94.39 Abnormal result of other cardiovascular function study; Z71.6 Tobacco abuse counseling; I25.10 Atherosclerotic heart disease of native coronary artery without angina pectoris; R06.00 Dyspnea, unspecified; Z01.811 Encounter for preprocedural respiratory examination | CPT/HCPCS: 71046; 99204 ==

== ENCOUNTER 2021-12-17 10:25 | Outpatient (CLI) | payer MEDICARE, SELFPAY ==
--- NOTE | 2021-12-17 10:37 | CT_ITS ---
WS: [id number] LDCT LUNG CANCER SCREENING TECHNIQUE: Noncontrast CT of the chest with coronal and sagittal reformatted images. CLINICAL INFORMATION: lung screening COMPARISON: None. DLP: 66.39 mGy.cm DIvol: Mean CTDIvol: 1.60 (mGy) All CT scans at [facility] use at least one of these dose optimization techniques: automat ed exposure control; mA and/or kV adjustment per patient size (includes targeted exams where dose is matched to clinical indication); or iterative reconstruction. FINDINGS: A few tiny 2 to 3 mm noncalcified tiny nodules. No other suspicious pulmonary parenchymal o pacities. No focal pneumonia or acute infiltrates. Normal caliber thoracic aorta. Aortic calcification. Coronary calcification. No mediastinal or hilar lymphadenopathy. Normal GE junction. CT/CT lung screening [id number] IMPRESSION: LUNG-RADS: 2-Benign Appearance or Behavior FOLLOW UP: 12 Month: Continue annual screening with LDCT
== END 2021-12-17 10:26 | disposition home or self-care (01) ==
LOC: RAD 10:27
PROVIDERS: PCP Family Medicine; Visit Provider Internal Medicine Pulmonary Disease
DX: Z12.2 Encounter for screening for malignant neoplasm of respiratory organs (principal); F17.210 Nicotine dependence, cigarettes, uncomplicated
CPT/HCPCS: 71271

== ENCOUNTER → 2021-12-30 12:38 | Outpatient (BNVA) | payer MEDICARE, SELFPAY | PROVIDERS: PCP Family Medicine; Visit Provider Family Medicine | DX: E78.5 Hyperlipidemia, unspecified (principal); I10 Essential (primary) hypertension; J44.9 Chronic obstructive pulmonary disease, unspecified; G62.9 Polyneuropathy, unspecified; E11.9 Type 2 diabetes mellitus without complications; E11.65 Type 2 diabetes mellitus with hyperglycemia; E78.2 Mixed hyperlipidemia; Z79.4 Long term (current) use of insulin | CPT/HCPCS: 80053; 80061; 83036; 84443; 85025 ==

== ENCOUNTER → 2022-01-07 14:18 | Outpatient (BNVA) | payer MEDICARE, SELFPAY | PROVIDERS: PCP Family Medicine; Visit Provider Thoracic Surgery (Cardiothoracic Vascular Surgery) | DX: I25.10 Atherosclerotic heart disease of native coronary artery without angina pectoris (principal); I10 Essential (primary) hypertension; F17.210 Nicotine dependence, cigarettes, uncomplicated | CPT/HCPCS: 99213 ==

== ENCOUNTER → 2022-04-26 11:20 | Outpatient (BNVA) | payer MEDICARE, SELFPAY | PROVIDERS: PCP Family Medicine; Visit Provider Family Medicine | DX: E11.9 Type 2 diabetes mellitus without complications (principal); E11.65 Type 2 diabetes mellitus with hyperglycemia; Z79.4 Long term (current) use of insulin; I25.10 Atherosclerotic heart disease of native coronary artery without angina pectoris; I10 Essential (primary) hypertension | CPT/HCPCS: 80053; 83036; 85025 ==

== ENCOUNTER 2022-05-24 18:07 | Inpatient (IN) | payer MEDICARE, SELFPAY ==
[2022-05-24] VITALS (21 sets, daily range): BP systolic 116–140; BP diastolic 65–108; PULSE 58–82; RESP 0–20; O2SAT 77–100; BMI 35.2
--- NOTE | 2022-05-24 18:10 | ED_ITS ---
HPI - CPR General: Chief Complaint: Chest Pain Stated Complaint: STEMI ALERT Time Seen by Provider: 05/24/22 18:10 Limitations: altered mental status and physical limitation History of Present Illness: Mr Barton is a 57-year-old gentleman with significant past medical history of hypertension, hyperlipidemia, obesity, COPD, CAD, heart failure with reduced ejection fraction presenting to the emergency department due to postcardiac arrest. History is limited by patient's acuity and current intubated state. Apparently he has felt mildly ill earlier today and went to the bathroom and subsequently collapsed. He was found down by EMS without prior to arrival CPR being performed. He was apneic and unresponsive without a pulse. CPR was initiated by EMS and initial rhythm noted to be ventricular fibrillation. Patient was defibrillated a total of 3 times. He received 4 separate 1 mg doses of epinephrine and 300 followed by 150 mg of amiodarone. Patient was intubated with a 7.5 ET tube. ROSC was achieved. Just prior to EMS arrival at our facility the patient did begin to gag and vomited and was administered 10 mg of Versed. EKG demonstrated ST elevation in the septal anterior leads and a STEMI activation was called approximately 10 minutes prior to EMS arrival Review of Systems General: Reports: ROS unobtainable due to endotracheal tube, ROS unobtainable due to medical condition and ROS unobtainable due to mental status [facility] ED PFSH: Medical History COPD (chronic obstructive pulmonary disease) Coronary artery disease CVA (cerebral vascular accident) Diabetes Hyperlipidemia Hypertension Ischemic cardiomyopathy Myocardial infarct Obesity Skin rash Tobacco abuse Family History Other CAD (coronary artery disease) Cancer Diabetes Hypertension Myocardial infarction Social History Smoking and tobacco status: current every day smoker cigarettes Packs smoked per day: 2 Years cigarettes smoked: 45 [ Other cigarette details: 1pack per 2 days currently] Alcohol intake: former Marital status: Life Partner service: No Current occupational status: disabled Current gender identity: Male Special dave needs: No Physical Exam Const: GENERAL APPEARANCE: well developed, ill appearing and patient mechanically ventilated HENMT: COMMON NORMALS: normocephalic and atraumatic HEAD & SCALP: normocephalic and atraumatic Eye: COMMON NORMALS: Equal, round and reactive pupils present and conjunctivae normal CONJUNCTIVA: Yes conjunctivae normal SCLERA: sclerae normal PUPIL: Yes Equal, round and reactive pupils present Neck/C-Spine: COMMON NORMALS: supple GENERAL: Yes trachea midline Resp: AUSCULTATION: diminished lung sounds on the right OTHER: Overbreathing vent Cardio: COMMON NORMALS: regular rate and regular rhythm RATE: regular rate RHYTHM: regular rhythm GI: COMMON NORMALS: Soft to palpation PALPATION: Yes Soft to palpation and No Tenderness to palpation present (GI) Extremity: GENERAL: Yes normal exam except as noted and No edema Neuro: SENSORIUM/ORIENTATION: Yes obtunded OTHER: Gag reflex present Skin: NARRATIVE SKIN EXAM: Abrasion/skin tear to left upper extremity Course Vital Signs: Vital signs: Vital Signs Temperature 98.1 F 06/04/22 14:25 Pulse Rate 94 06/04/22 14:25 Respiratory Rate 23 H 06/04/22 14:25 Blood Pressure 166/82 06/04/22 14:25 Pulse Oximetry 88 L 06/04/22 14:25 Oxygen Delivery Me thod 06/04/22 14:00 Oxygen Flow Rate 1 06/04/22 12:00 Fraction of Inspir ed Oxygen 30 06/02/22 18:00 MDM - Cardiac Arrest/CPR Medical Decision Making 57-year-old gentleman with, per chart review, extensive cardiac history and comorbidities including cardiac risk factors presenting to the emergency department due to postcardiac arrest. History is limited as patient is currently intubated and family is not available at this time. Exam as above. Cardiology at bedside. Initial set of vitals with adequate blood pressure, heart rate, and patient being ventilated with Ambu bag. Prehospital EKG reviewed, more prominent ST elevation compared to ours however given clinical scenario Dr. Sagastume will proceed with cardiac catheterization. Rectal aspirin ordered. Heparin bolus and drip ordered. Laboratory studies pending at time of admission. Chest x-ray reviewed with initial endotracheal tube right mainstem. This was retracted 4 cm and satisfactory review of chest x-ray at bedside. Lung sounds equal upon reassessment. Discussed with hospitalist service who was agreeable to admit patient. Medical Records I reviewed the patient's medical records. Lab Data I reviewed the patient's lab results. 05/24/22 18:27 12/05/22 18:27 Radiology Impressions Renal Ultrasound 05/26/22 17:21 IMPRESSION: 1. Fatty liver 2. No hydronephrosis. Chest X-Ray 05/28/22 07:00 IMPRESSION: Development of pulmonary edema since previous study.. Gallbladder Ultrasound 05/29/22 09:02 IMPRESSION: 1. Cholelithiasis without sonographic evidence of acute cholecystitis. 2. Fatty liver. Head CT 05/29/22 21:23 IMPRESSION: 1. No focal hemorrhage or midline shift. No change from prior day. 2. Large ventricles again seen with chronic ventriculomegaly likely. Normal pressure hydrocephalus is possible. Follow with neurology. 3. Severe for age vascular calcification as well. Laboratory Results WBC 18.9 10^3/uL (4.0-10.0) H 05/24/22 18: RBC 6.47 10^6/uL (4.1-5.3) H 05/24/22 18: Hgb 18.4 g/dL (11.7-16.6) H 05/24/22 18: Hct 57.5 % (42.0-52.0) H 05/24/22 18: MCV 88.9 fl (80-94) 05/24/22 18: MCH 28.4 pg (28.0-34.0) 05/24/22 18: MCHC 32.0 g/dL (30.0-36.0) 05/24/22 18: RDW 13.3 % (12.1-15.1) 05/24/22 18: Plt Count 145 10^3/cmm (130-400) 05/24/22 18: MPV 10.5 fL (7.4-10.4) H 05/24/22 18: Neut % (Auto) 62.5 % 05/24/22 18: Lymph % (Auto) 26.2 % 05/24/22 18: Chase % (Auto) 3.6 % 05/24/22 18: Eos % (Auto) 2.9 % 05/24/22 18: Baso % (Auto) 0.7 % 05/24/22 18: Neut # (Auto) 11.82 10^3/uL (1.8-7.7) H 05/24/22 18:27 Lymph # (Auto) 5.0 10^3/uL (0.8-4.8) H 05/24/22 18:27 Chase # (Auto) 0.7 10^3/uL (0.2-0.9) 05/24/22 18:27 Eos # (Auto) 0.5 10^3/uL (0.0-0.8) 05/24/22 18:27 Baso # (Auto) 0.1 10^3/uL (0.0-0.1) 05/24/22 18:27 Nucleated RBC % (auto) 0 % 05/24/22 18: Nucleated RBCs # 0.0 /100WBC 05/24/22 18:27 PT 15.00 SECONDS (12.1-14.9) H 05/24/22 18:27 INR 1.15 (0.8-1.2) 05/24/22 18:27 APTT 35.4 SECONDS (23.9-36.7) 05/24/22 18:27 Sodium Cancelled 05/24/22 18:27 Potassium Cancelled 05/24/22 18:27 Chloride Cancelled 05/24/22 18:27 Carbon Dioxide Cancelled 05/24/22 18:27 Anion Gap Cancelled 05/24/22 18:27 BUN Cancelled 05/24/22 18:27 Creatinine Cancelled 05/24/22 18:27 GFR Calculation Cancelled 05/24/22 18:27 Glucose Cancelled 05/24/22 18:27 Calculated Osmolality Cancelled 05/24/22 18:27 Calcium Cancelled 05/24/22 18:27 Total Bilirubin Cancelled 05/24/22 18:27 AST Cancelled 05/24/22 18:27 ALT Cancelled 05/24/22 18:27 Alkaline Phosphatase Cancelled 05/24/22 18:27 Troponin T Baseline 54 ng/L (0-15) H 05/24/22 18:27 NT-Pro-B Natriuret Pep Cancelled 05/24/22 18:27 Total Protein Cancelled 05/24/22 18:27 Albumin Cancelled 05/24/22 18:27 Globulin Cancelled 05/24/22 18:27 Urine Color Yellow (Yellow) 05/24/22 18:51 Urine Appearance Clear (CLEAR) 05/24/22 18:51 Urine pH 5 (5-7) 05/24/22 18:51 Ur Specific [place] 1.015 (1.005-1.030) 05/24/22 18:51 Urine Protein 1+ (Negative) H 05/24/22 18:51 Urine Glucose (UA) 4+ (Normal) H 05/24/22 18:51 Urine Ketones Negative (Negative) 05/24/22 18:51 Urine Blood 2+ (Negative) H 05/24/22 18:51 Urine Nitrate Negative (Negative) 05/24/22 18:51 Urine Bilirubin Neg (Negative) 05/24/22 18:51 Urine Urobilinogen Norm mg/dL (Negative) 05/24/22 18:51 Ur Leukocyte Esterase Negative (Negative) 05/24/22 18:51 Urine RBC 0-4 /hpf (0-2) H 05/24/22 18:51 Urine WBC 0-4 /hpf (0-5) H 05/24/22 18:51 Ur Squamous Epith Cells 0-4 /hpf (0-5) H 05/24/22 18:51 Amorphous Sediment Not Reportable 05/24/22 18:51 Urine Bacteria 4+ /hpf (NONE) H 05/24/22 18:51 Critical Care Time Critical Care Time: Critical Care Time: Yes Total Critical Care Time: 40 Attestation: Due to a high probability of clinically significant, possibly life threatening deterioration, the patient required my highest level of attention and p reparedness to intervene emergently and I personally spent this critical care time directly and personally managing the patient. This critical care time included obtaining a history; examining the patient; pulse oximetry; ordering and review of laboratory and imaging studies; arranging urgent treatment with development of a management plan; evaluation of patient's response to treatment; frequent reassessment; and, discussions with other providers as applicable. It was exclusive of separately billable procedures. Primary system involved is cardiac Discharge Plan Discharge Patient Disposition: Admitted As Inpatient Admit Provider: Jeramy Melchor Clinical Impression: ST elevation myocardial infarction (STEMI), Signs of return of spontaneous circulation, Cardiac arrest with ventricular fibrillation Condition: Stable Coding Level of Care Code ED [employer] Fence Builder for Chg Fwd Exam Comprehensive
--- NOTE | 2022-05-24 18:11 | XR_ITS ---
WS: [id number] EXAMINATION: XR chest 1V portable 40233 REASON FOR EXAM: post code COMPARISON: 05/24/2022 ORDER DATE: 05/24/2022 6:11 PM TECHNIQUE: A single, portable frontal chest x-ray was obtained. X-RAY FINDINGS: The lungs are clear. Pleural spaces are clear. No pleural effusions or pneumothorax. Cardiomediastinal silhouette is normal. No evidence for pulmonary edema. Soft tissue and osseous structures are unremarkable. The endotracheal tube is approximately 2.5 cm above the dimple. Previous enteric tube is been removed. XR/XR chest 1V portable [id number] IMPRESSION: Unremarkable frontal portable chest x-ray.
--- NOTE | 2022-05-24 18:12 | ECG_ITS ---
[facility] Test Date: 2022-05-24 Pat Name: Adolfo Barton Department: Room: Gender: Male Portfolio Assistant: : 1965 Requested By: Ayad Castillo Order Number: [id number] MD: Reji Olivares M.D. Measurements Intervals [place] Rate: 80 P: 129 AK: 228 QRS: 200 QRSD: 127 T: 52 QT: 432 QTc: 501 Interpretive Statements SINUS RHYTHM WITH FIRST DEGREE AV BLOCK ARM LEADS REVERSED [INVERTED P AND QRS IN I] No previous ECG available for comparison Electronically Signed On 05-24-2022 19:03:03 CENTRAL OFFICE FRAME WIRER by Reji Olivares M.D. [id number]
--- NOTE | 2022-05-24 18:24 | XACV_ITS ---
Exam Room: [facility] Ht: 170 cm Wt: 102 kg BSA: 2.24 m2 Gender: Male : 1965 Any Known Allergies: Other Exam Priority: Routine Procedure(s): Procedure Description: Diagnostic procedure Procedure Description: Left Heart Catheterization Procedure Description: Coronary Angiography Diagnostic Cath Status: Emergency Diagnostic Findings * Patient was brought to the hospital after an [id number] cardiac arrest and counter shocking for ventricular fibrillation. He has known three-vessel coronary artery disease to involve a occlusion of the mid LAD, occlusion of the diagonal and occlusion of the nondominant right coronary artery. There are lesions in 2 marginal branches of the dominant circumflex. He declined open heart surgery several months ago. * The prehospital EKG suggested an anterior wall DE however the in-hospital EKG did not suggest a STEMI. Because of the inm-ut-ftwrlzrv arrest and his known coronary disease I decided to perform angiography to ensure there was no new finding on angiography. * Patient had received multiple medications prehospital and in the emergency room. He had developed a diffuse maculopapular rash by the time he arrived in the catheterization laboratory. He was given Benadryl and Solu-Medrol prior to the angiogram. There was a thready right radial pulse. I made an attempt to enter this vessel. The needle entered the vessel twice but I could not thread the wire. This was the case previously during his most recent angiogram. With some difficulty due to his obesity, the procedure was completed from the right groin. * Angiography reveals a normal calcified left main coronary artery. The LAD is occluded in the midportion. There are collaterals from the left system which feed the mid to distal LAD. The diagonal is occluded. There is circumflex is a large dominant vessel. There are 2 fairly large marginal branches both of which have ostial lesions that are fairly significant. It should be noted here that the angiogram is exactly the same as it was several months ago. A left ventriculogram was not performed.. Conclusions 1. Three-vessel coronary artery disease identical to what was noted previously. Recommendations * No intervention available. If his central nervous system awakens, give consideration of coronary bypass surgery. Interventional RX Recommendation: medical therapy and/or counseling Diagnostic RX Recommendation: medical therapy and/or counseling Anticoagulation: Heparin Pressures Phase:Rest AO : 118 / 99 ( 109 ) @ 2:01:00 PM 104 / 69 ( 85 ) @ 2:01:00 PM 105 / 68 ( 85 ) @ 2:01:00 PM LV : 114 / 4 / 20 @ 2:01:00 PM 114 / 4 / 20 @ 2:01:00 PM Valves Phase:DefaultPhase AV : 9.0 @ 8:01:00 PM AV Mean Gradient: 9.0 @ 8:01:00 PM Clinical Evaluation EBL: 5mL-10mL Procedural Details Pre-Procedure Time Out. Identified patient by full name and date of as verbalized by the patient/guarantor. Does the consent match the physician's order: N/A Emergent; Informed Consent not obtained due to time critical life threat. Accurate & Complete Informed Consent: N/A Emergent; Informed Consent not obtained due to time critical life threat. Inpatient/Outpatient History & Physical on Chart: N/A Emergent; Informed Consent not obtained due to time critical life threat. If H&P is completed, is and addenduem needed: N/A Emergent; Informed Consent not obtained due to time critical life threat; If yes, is the addendum complete: N/A Emergent; Informed Consent not obtained due to time critical life threat. Visualize and Verify Site with Patient/Guarantor: N/A. Relevant Radiology Images available: N/A. Procedure started. [facility] Clinical Fraility Score: 7: Severely Frail. Resident Director Indications: Ventricular Arrythmias, Known CAD. Chest Pain Symptom Assessment: Typical Angina Symptoms. Cardiovascular Instability: Yes, if yes, Ventricular Arrhythmias, Persistent Ischemic Symptoms. Correct patient, site and procedure confirmed by cath team. Current diagnosis: Out of hospital cardiac arrest. IV Site on Arrival: 20 gauge in the right anticubital. IV Site on Arrival: 18 gauge in the left anticubital. IV Fluids: 0.9% NaCl at KVO. 500 mL infused prior to experimental machining lab manager. Patient arrived to experimental machining lab manager on a ventilator and will be managed by respiratiory, cmv , 7.5 tube 24 at [facility]. Physician notified. right radial was prepped with chloroprep then draped in the usual sterile fashion. right groin was prepped with chloroprep then draped in the usual sterile fashion. Baseline sample Acquired. HR: 94 BPM. Admit Source: Emergency department. Physician arrived. Immediate Pre-Procedure Time Out. Correct Patient: Yes; Correct Procedure: Yes; Correct Site: Yes; Correct Patient Position: Yes; Correct Supplies: Yes; Dried Flammable Prep: Yes; Blood Products Available: N/A Emergent;. Physician scrubbed in. Baseline sample Acquired. HR: 82 BPM. Lidocaine 1% infiltrated to the right radial. Unable to obtain radial access. MD attempting to gain access in the Femoral artery. Lidocaine 1% infiltrated to the right groin. Arterial access obtained. A 6 wallisian JL4 catheter in over wire. Multiple views taken of left coronary artery. Catheter out. A 6 wallisian JR4 catheter in over wire. EDP Sample taken: LV 114/4,20; HR: 88 BPM; SpO2: Off%. Pullback taken: LV 114/4,20; AO 104/69(85); Mean: 9mmHg, Peak to Peak: 9mmHg, SEP: 21sec/min; HR: 88 BPM; SpO2: Off%. Multiple views taken of right coronary artery. Catheter out. A Suture was successful obtaining hemostatsis at the Right Femoral artery insertion site. Sheath(s) sutured into position with 2-0 silk and sterile 4x4's and Op-site applied over the site. No oozing or signs and symptoms of hematoma noted. Arterial sheath flushed and connected to tranducer and pressure bag with heparinized saline. Post Procedure: Pulses reassessed and unchanged. No VTE prophylaxis required. Medication's Wasted: Heparin = 4000 unit. Total IV fluids: 75 mL. Post-op diagnosis: Out of Hospital Cardiac Arrest. Complications: None. Estimated blood loss: 5mL-10mL. Responsiveness -Pt sedated, does not follow commands or awaken to verbal stimuli. Airway - Unaffected,remains on ventilator. Circulation: W/N/L, pulses unchanged. Nausea/Vomiting:No. Procedure completed. Pt remains under care of experimental machining lab manager staff until ICU bed is available. Patient transferred by bed to ICU. Vital chart was stopped. Access Site Site: Right Femoral artery Sheath Size: 6 Fr Hemostasis Method: Suture Hemostasis Success: Successful Procedure Medications Start: 6:44 PM Stop: 6:44 PM Medication: Diphendryamine Amount: 50 mg Route: I.V. Start: 7:27 PM Stop: 7:27 PM Medication: Solu-Medrol (methylprednisolone) Amount: 125 mg Route: I.V. Start: 7:33 PM Stop: 7:33 PM Medication: Versed Amount: 2 mg Route: I.V. Start: 7:51 PM Stop: 7:51 PM Medication: Versed Amount: 2 mg Route: I.V. I, the attending physician, have reviewed and verified all procedure medications. Yes, all medications given per verbal order History/Risk Factors Hypertension: No Dyslipidemia: No Peripheral Arterial Disease (PAD): No Myocardial Infarction (DE): No Obesity: No Renal Disease: No Prior Interventions PCI: No CABG: No Valve Surgery: No Report Signatures Finalized by Dr. Wilmer Sagastume MD on 05/24/2022 08:23 PM
[2022-05-24] MEDS: sodium chloride 0.9% 500 ML 999 ML IV (18:30)
[2022-05-24 18:32] LABS: Basophils # 0.1 10^3/uL (0.0-0.1); Basophils % 0.7 %; Eosinophils # 0.5 10^3/uL (0.0-0.8); Eosinophils % 2.9 %; Hematocrit 57.5 % (42.0-52.0); Hemoglobin 18.4 g/dL (11.7-16.6); Lymphocytes % 26.2 %; Mean Corpuscular Hemoglobin 28.4 pg (28.0-34.0); Mean Corpuscular Volume 88.9 fl (80-94); Mean Platelet Volume 10.5 fL (7.4-10.4); Monocytes # 0.7 10^3/uL (0.2-0.9); Monocytes % 3.6 %; Neutrophils # 11.82 10^3/uL (1.8-7.7); Neutrophils % 62.5 %; Nucleated Red Blood Cells % 0 %; Platelet Count 145 10^3/cmm (130-400); Red Blood Count 6.47 10^6/uL (4.1-5.3); Red Cell Distribution Width 13.3 % (12.1-15.1); White Blood Count 18.9 10^3/uL (4.0-10.0)
[2022-05-24] MEDS: heparin 5,000 unit/mL INJ 1 mL 4000 UNIT IVP (18:34)
[2022-05-24] MEDS: fentaNYL 50 mcg/mL INJ 2mL 100 MCG IVP (18:35)
[2022-05-24 18:44] LABS: INR 1.15 (0.8-1.2)
[2022-05-24 18:45] LABS: Partial Thromboplastin Time 35.4 SECONDS (23.9-36.7)
[2022-05-24 18:55] LABS: Troponin(5th) Baseline 54 ng/L (0-15)
[2022-05-24 19:17] LABS: Bilirubin Urine Neg (Negative); Blood Urine 2+ (Negative); Glucose Urine UA 4+ (Normal); Ketones Urine Negative (Negative); Nitrate Urine Negative (Negative); Protein Urine 1+ (Negative); Specific Gravity, Urine 1.015 (1.005-1.030); Urine Appearance Clear (CLEAR); Urine Color Yellow (Yellow); pH Urine 5 (5-7)
[2022-05-24 19:18] LABS: Add Urine Culture? Yes; Add Urine Microscopic? YES; Bacteria Urine 4+ /hpf; Leukocyte Esterase Urine Negative (Negative); RBC Urine 0-4 /hpf (0-2); Squamous Epithelial Cell Urine 0-4 /hpf (0-5); Urobilinogen Urine Norm (Negative); WBC Urine 0-4 /hpf (0-5)
--- NOTE | 2022-05-24 19:28 | P.HP_ITS ---
Providers/Chief Complaint Primary Care Provider: Alicia De MD Chief Complaint: STEMI ALERT History of Present Illness Adolfo Barton is a 57 year old male Carries history of significant coronary disease, has been following up with his hydro plant technician, his last visit was roughly 3 months ago, previous history of TX he was recommended CABG which he declined, he follows up Dr. Short at that point he declined intervention again, his recent coronary angiogram showed occlusion of LAD and RCA, presented after cardiac arrest outside the hospital. As per the , they both took a nap until 4:30 PM, then Adolfo got up from the bed and went to the bathroom, heard a loud noise when Mr. Mata was gasping for air, at that point she was having a coughing fit she uses oxygen for her COPD she could not get up right away but when she checked she noticed that Adolfo was cold, clammy diaphoretic, gasping for air, he soiled himself with urine, there was urine on the floor, Adolfo took 1 minute to get up on his legs, soon after that he fell on the ground unconscious at that point called EMS. EMS arrived within 7 to 8 minutes, they rolled him over a flat surface and intubated him, started CPR, as per the Adolfo has chronic eczema they have tried to change medicines, detergents but they are not sure what is causing hives all over his skin. I do not have EMT records, as per the ER physician he was intubated on the scene, received 4 doses of epinephrine, he was shocked 3 times, he also received 300 mg and then 150 mg of amiodarone, total CPR duration roughly is more than 15 minutes, initial EKG on arrival did show changes consistent with anterior wall TX, Dr. Sagastume was consulted who took him to the Partnership Development Manager straightaway. However second EKG is not showing typical STEMI changes as per Dr. Whitehead, he does have bundle branch block. Today's coronary angiogram showed complete occlusion LAD and RCA, official report is pending, cardiology l recommended medical management, candidate of AICD Patient did not receive any PCI, he was not sedated with propofol on fentanyl, however post cath as per the Partnership Development Manager staff patient tried to grab the hand of a nurse, he was flexing his thumb as well however he did not open his eyes I requested ICU nurse to place an NG tube to low intermittent suction requested ABG, BMP, D-dimer started on heparin start aspirin and Plavix Spoke with is stating that in case of further hemodynamic instability she would like to make him comfort care Review of Systems General: Reports: ROS unobtainable due to endotracheal tube Medications/Allergies Home Medications Medication Instructions Recorded Confirmed Last Taken Type aspirin 81 mg tablet,delayed 81 mg PO ONCE 07/04/19 05/12/22 09/27/21 10:00 History release (Adult Low Dose Aspirin) albuterol sulfate 90 mcg/actuation 2 puff inhalation QID PRN 03/04/21 05/12/22 09/27/21 10:00 Rx aerosol inhaler (ProAir HFA) shortness of breath or wheezing #8.5 grams pen needle, diabetic 31 gauge x #100 ea 07/02/21 05/12/22 09/25/21 Rx 5/16 (Sure-Fine Pen [place]) nitroglycerin 0.4 mg sublingual See Rx Instructions .Route 09/25/21 05/12/22 09/27/21 10:00 Rx tablet .COMPLEX #25 tabs insulin human U-100 NPH-regulr See Rx Instructions .Route 12/17/21 05/12/22 Unknown Rx 70-30 mix 100 unit/mL subcutaneous .COMPLEX #50 mL susp (Humulin 70/30 U-100 Insulin) carvedilol 12.5 mg tablet See Rx Instructions .Route 05/12/22 05/12/22 Unknown Rx .COMPLEX #60 tabs empagliflozin 25 mg tablet See Rx Instructions .Route 05/12/22 05/12/22 Unknown Rx (Jardiance) .COMPLEX #60 tabs isosorbide mononitrate 120 mg See Rx Instructions .Route 05/12/22 05/12/22 Unknown Rx tablet,extended release 24 hr .COMPLEX #90 tabs lisinopril 10 mg tablet 20 mg PO DAILY #180 tabs 05/12/22 05/12/22 Unknown Rx pregabalin 75 mg capsule 75 mg PO BID #60 caps 05/12/22 05/12/22 Unknown Rx rosuvastatin 20 mg tablet See Rx Instructions .Route 05/12/22 05/12/22 Unknown Rx .COMPLEX #90 tabs semaglutide 0.25 mg or 0.5 mg (2 See Rx Instructions .Route 05/12/22 05/12/22 Unknown Rx mg/1.5 mL) subcutaneous pen .COMPLEX #1.5 mL injector (Ozempic) Allergies Allergy/AdvReac Type Severity Reaction Status Date / Time metformin Allergy Unknown Unknown Verified 05/12/22 09:57 bee venom protein (honey bee) Allergy ALGY-Difficulty Verified 05/12/22 09:57 Breathing PFSH Acute PFSH: Medical History COPD (chronic obstructive pulmonary disease) Coronary artery disease CVA (cerebral vascular accident) Diabetes Hyperlipidemia Hypertension Ischemic cardiomyopathy Myocardial infarct Obesity Skin rash Tobacco abuse Family History Other CAD (coronary artery disease) Cancer Diabetes Hypertension Myocardial infarction Social History Smoking and tobacco status: current every day smoker cigarettes Packs smoked per day: 2 Years cigarettes smoked: 45 [ Other cigarette details: 1pack per 2 days currently] Alcohol intake: former Marital status: Life Partner service: No Current occupational status: disabled Current gender identity: Male Special dave needs: No Vitals/I&O/Wt Last Vital Signs Pulse 81 05/24/22 18:12 Resp 14 05/24/22 18:41 BP 121/65 05/24/22 18:12 Pulse Ox 100 05/24/22 18:12 O2 Del Method 05/24/22 18:12 FiO2 100 05/24/22 18:41 Weight last 48 hrs Weight 102.058 kg Physical Exam Narrative: Patient is intubated and not making any movement, not on any sedatives Skin eczematous rash Bilateral breath sounds Currently on FiO2 100% Abdomen distended, bowel sounds sluggish Variable S1-S2 Lower extremity are cold however no ischemic ulcers Weak dorsalis pedis pulses Tom cath draining concentrated urine Pinpoint pupils Urinary Catheter Management: Tom: Cath Placed During This Visit: yes Urinary Catheter Date of Insertion: 05/24/22 Urinary Catheter Time of Insertion: 18:15 Data 05/24/22 18:27 05/24/22 18:27 A&P Assessment and plan (1) Cardiac arrest with ventricular fibrillation: (2) Signs of return of spontaneous circulation: (3) ST elevation myocardial infarction (STEMI): (4) Neuropathy: (5) Coronary artery disease: Qualifiers: Associated angina: without angina Coronary Disease-Associated Artery/Lesion type: [place] artery [place] vs. transplanted heart: [place] heart Qualified Code(s): I25.10 - Atherosclerotic heart disease of [place] coronary artery without angina pectoris (6) Diabetes: Qualifiers: Diabetes mellitus complication status: with hyperglycemia Diabetes mellitus watermelon harvesting supervisor insulin use: with watermelon harvesting supervisor use Diabetes mellitus type: type 2 Qualified Code(s): E11.65 - Type 2 diabetes mellitus with hyperglycemia; Z79.4 - snf (current) use of insulin (7) Hypertension: Qualifiers: Hypertension type: essential hypertension Qualified Code(s): I10 - Essential (primary) hypertension (8) COPD (chronic obstructive pulmonary disease): Qualifiers: COPD type: unspecified COPD Qualified Code(s): J44.9 - Chronic obstructive pulmonary disease, unspecified (9) Obesity: Plan Cardiac arrest outside the hospital Likely etiology primary arrhythmia due to underlying coronary disease, active smoker, diabetic Dr. Sagastume not convinced with the STEMI diagnosis Patient has chronic coronary disease Coronary angiography showed chronic changes of total occlusion of coronary vessels, official report is pending I would request D-dimer, start patient on heparin drip along with aspirin and statin Hold Plavix in case patient agrees for AICD placement for secondary prevention TTM not initiated As per the ER physician, code ran for about 15 to 20 minutes He was intubated by the EMS For sedation I would use propofol if needed, placed OG to intermittent suction, stop suction for about 2 hours before and after giving aspirin and Plavix Request echo As per Dr. Sagastume EF seems to be around 30% please see Dr. John's note which was signed on 01/07/2022 Patient has declined CABG which was recommended by his hydro plant technician and Dr. John (?Dr. Olivares did left heart catheterization which was completed September 28.? That study noted small nondominant RCA.? Total occlusion of the proximal to mid LAD with left to left collateralization.? Total occlusion of the first diagonal.? OMB 1 with a 70% stenosis.? OMB 2 with a 90% stenosis.? Ejection fraction was estimated at 35 to 40% on this study with hypokinesia of the apical wall.) is stating that in case of further hemodynamic instability or cardiac arres t she would like to make him comfort care, she does not want AICD, chest compressions or defibrillation now onwards, she is agreeable with current medical management I did speak with her regarding guarded prognosis, her questions were answered to her satisfaction Attestations Medical Necessity Statement*: Guarded prognosis intubated and sedated more than 2 midnights anticipated Critical Care Time: 40mins Coding Level of Care Code 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 transplanted heart: [place] heart Diabetes E11.65; Z79.4 Diabetes mellitus complication status: with hyperglycemia Diabetes mellitus watermelon harvesting supervisor insulin use: with alf use Diabetes mellitus type: type 2 Hypertension I10 Hypertension type: essential hypertension COPD (chronic obstructive pulmonary disease) J44.9 COPD type: unspecified COPD Obesity E66.9
--- NOTE | 2022-05-24 19:36 | USCV_ITS ---
Transthoracic Echo Adolfo Barton Age: 57 Gender: M : 1965 Exam Date: 05/24/2022 20:49 Ordering Phys: Jeramy Melchor MD Technologist: ELAINE [place] [facility] [place]: cardiac arrest, defib x 3, hx HTN, hyperlipidemia, obesity, COPD, CAD, prior echo 01/14/2021, patient is on ventilator in ICU-9 BP: 121 / 65 HR: 60 Rhythm: Sinus Technical Quality: Adequate MEASUREMENTS (Male / Female) Normal Values 2D ECHO LV Diastolic Diameter PLAX 4.6 cm 4.2 - 5.9 / 3.9 - 5.3 cm LV Systolic Diameter PLAX 4.0 cm IVS Diastolic Thickness 1.2 cm 0.6 - 1.0 / 0.6 - 0.9 cm IVS Systolic Thickness 2.0 cm LVPW Diastolic Thickness 1.3 cm 0.6 - 1.0 / 0.6 - 0.9 cm LVPW Systolic Thickness 1.6 cm LVOT Diameter 2.1 cm LV Ejection Fraction 2D Teich 27.3 % LV Ejection Fraction MOD 2C 23.7 % LV Ejection Fraction 2C AL 25.3 % LA Diameter 3.2 cm LA Width 3.4 cm LA Height 5.5 cm RA Width 3.2 cm RA Height 4.0 cm Aorta at Sinotubular Diameter 3.4 cm IVC Diameter 2.2 cm M-MODE Aortic Annulus Diameter 4.0 cm LA Ao Ratio MM 0.8 MV E Point Septal Separation 1.9 cm DOPPLER AV Peak Velocity 67.0 cm/s LVOT Peak Velocity 37.0 cm/s AV Area Cont Eq vti 1.9 cm squared AV Area Cont Eq pk 2.0 cm squared MV Peak Velocity 70.0 cm/s MV Area PHT 3.7 cm squared Mitral E to A Ratio 1.2 MV E' Velocity 36.5 cm/s Mitral E to MV E' Ratio 23.4 Mitral E to LV E' Lateral Ratio 23.4 Mitral E to LV E' Septal Ratio 23.4 TV Peak E Velocity 20.0 cm/s PV Peak Velocity 43.0 cm/s RV Acceleration Time 0.1 s RV Ejection Time 0.2 s RV AcT/ET 0.3 FINDINGS Left Ventricle Normal left ventricular cavity size. Mildly increased left ventricular wall thickness. Severely decreased left ventricular systolic function. Left ventricular ejection fraction is estimated at 10-15 %. Severe global left ventricular hypokinesis. Right Ventricle Normal right ventricular size and systolic function. RVSP could not be calculated due to incomplete tricuspid regurgitation velocity profile. Right Atrium Normal right atrial size. Left Atrium Left atrium not well visualized. Possibly normal left atrial size. Mitral Valve Mild mitral annular calcification. Mildly thickened mitral valve. No mitral valve stenosis. Trace mitral valve regurgitation. Aortic Valve Mildly thickened and trileaflet aortic valve. Tricuspid Valve Structurally normal tricuspid valve. No tricuspid valve stenosis. Trace to mild tricuspid valve regurgitation. Pulmonic Valve Pulmonic valve not well visualized. Trace pulmonary valve regurgitation. Trace pulmonary valve regurgitation. Pericardium No pericardial effusion. Prominent epicardial fat. Aorta Normal size aortic root and proximal ascending aorta. IVC Dilated inferior vena cava. CONCLUSIONS 1. Normal left ventricular cavity size. Mildly increased left ventricular wall thickness. Severely decreased left ventricular systolic function. Left ventricular ejection fraction is estimated at 10-15 %. Severe global left ventricular hypokinesis. 2. Direct comparison to previous study is not possible due to technical differences in the study. Chanell Esteves MD (Electronically Signed) Final Date: 25 May 2022 08:47 S
--- NOTE | 2022-05-24 19:56 | PM.CONSULT ---
Providers/Reason For Consult Consulting Physician/Specialty*: Cardiovascular disease Reason for Consult*: Out of hospital cardiac arrest Requesting Physician: Emergency room Attending Physician: Wilmer Sagastume MD Primary Care Provider: Alicia De MD History of Present Illness History of Present Illness Adolfo Barton is a 57 year old male who first saw someone in this clinic about 2 years ago. He saw the nurse practitioner. He related that he had a heart attack in 2011 while living in [place]. He also stated that he had a stroke. He told the nurse practitioner that he had some blockages but no treatment was provided. Later on that year he was apparently in [place] and had another cardiac episode of some kind. The notes are nebulous and we [facility] He may have been told he needed a stent or bypass surgery but apparently declined. He saw Dr. Newton here 1 year ago. He was complaining of chest pain and shortness of breath. Stress testing was abnormal in multiple regions. It suggested the ejection fraction was low however the echo was read as normal. He was recommended to have coronary angiography but he declined. He was not seen again until earlier this year when he saw Dr. Olivares in the clinic. Coronary angiography was carried out in September. His LAD is occluded in the midportion with collaterals from the left side. First diagonal is also occluded. He has a small nondominant right which is occluded and there are lesions in both marginals of a dominant circumflex. Patient was referred to Dr. John. He was seen twice the most recent of which was January 07. Because of the underlying risk of surgery the patient declined according to the notes. He has not been seen since. He has a history of diabetes, lifelong tobacco abuse, COPD, super morbid obesity and dyslipidemia. He was at home this evening with his and was in the bathroom. His heard a funny noise . She then heard a thud. She went into the bathroom and he was wedged in the corner standing up but she said he was unresponsive. She could not get a pulse. He suddenly came to and was awake for 2 or 3 minutes trying to wash his hands. He then suddenly collapsed flat on his face on the bathroom floor. She called 911. Apparently, his initial rhythm was ventricular tachycardia or fibrillation. According to the emergency room personnel the patient was cardioverted 3 times. CPR was done briefly. He had 4 mg of epinephrine. He was given 300 mg of amiodarone followed by 150 mg of amiodarone. He was given 10 mg of Versed and intubated. This all occurred while at home. He subsequently vomited. Apparently he was trying to breathe around the ET tube. Upon his arrival here he was being bagged and had a rhythm and a blood pressure. He was given 4000 units of heparin, aspirin rectally. The out of hospital emergency EKG revealed ST segment elevation in leads V2, V3, V4, V5 and V6. For this reason a STEMI alert was called. However, the EKG here revealed no ST elevation in the anterior precordial leads. His arm leads are reversed. There is evidence of an old anterior wall AR. Due to the fairly clear evidence of a STEMI on the prehospital EKG I decided to take the patient to the cardiac catheterization laboratory. This was before I had an opportunity to review his old films where his LAD is clearly occluded. I was not expecting to find anything to intervene upon. Review of Systems Narrative: Unavailable due to out of hospital cardiac arrest and intubation. Medications/Allergies Home Medications Medication Instructions Recorded Confirmed Last Taken Type aspirin 81 mg tablet,delayed 81 mg PO ONCE 07/04/19 05/12/22 09/27/21 10:00 History release (Adult Low Dose Aspirin) albuterol sulfate 90 mcg/actuation 2 puff inhalation QID PRN 03/04/21 05/12/22 09/27/21 10:00 Rx aerosol inhaler (ProAir HFA) shortness of breath or wheezing #8.5 grams pen needle, diabetic 31 gauge x #100 ea 07/02/21 05/12/22 09/25/21 Rx 5/16 (Sure-Fine Pen [place]) nitroglycerin 0.4 mg sublingual See Rx Instructions .Route 09/25/21 05/12/22 09/27/21 10:00 Rx tablet .COMPLEX #25 tabs insulin human U-100 NPH-regulr See Rx Instructions .Route 12/17/21 05/12/22 Unknown Rx 70-30 mix 100 unit/mL subcutaneous .COMPLEX #50 mL susp (Humulin 70/30 U-100 Insulin) carvedilol 12.5 mg tablet See Rx Instructions .Route 05/12/22 05/12/22 Unknown Rx .COMPLEX #60 tabs empagliflozin 25 mg tablet See Rx Instructions .Route 05/12/22 05/12/22 Unknown Rx (Jardiance) .COMPLEX #60 tabs isosorbide mononitrate 120 mg See Rx Instructions .Route 05/12/22 05/12/22 Unknown Rx tablet,extended release 24 hr .COMPLEX #90 tabs lisinopril 10 mg tablet 20 mg PO DAILY #180 tabs 05/12/22 05/12/22 Unknown Rx pregabalin 75 mg capsule 75 mg PO BID #60 caps 05/12/22 05/12/22 Unknown Rx rosuvastatin 20 mg tablet See Rx Instructions .Route 05/12/22 05/12/22 Unknown Rx .COMPLEX #90 tabs semaglutide 0.25 mg or 0.5 mg (2 See Rx Instructions .Route 05/12/22 05/12/22 Unknown Rx mg/1.5 mL) subcutaneous pen .COMPLEX #1.5 mL injector (Battlepro) Allergies Allergy/AdvReac Type Severity Reaction Status Date / Time metformin Allergy Unknown Unknown Verified 05/12/22 09:57 bee venom protein (honey bee) Allergy ALGY-Difficulty Verified 05/12/22 09:57 Breathing PFSH Acute PFSH: Medical History (Updated 05/24/22 @ 20:13 by Wilmer Sagastume MD) COPD (chronic obstructive pulmonary disease) Coronary artery disease CVA (cerebral vascular accident) Diabetes Hyperlipidemia Hypertension Ischemic cardiomyopathy Myocardial infarct Obesity Skin rash Tobacco abuse Family History Other CAD (coronary artery disease) Cancer Diabetes Hypertension Myocardial infarction Social History Smoking and tobacco status: current every day smoker cigarettes Packs smoked per day: 2 Years cigarettes smoked: 45 [ Other cigarette details: 1pack per 2 days currently] Alcohol intake: former Marital status: Life Partner service: No Current occupational status: disabled Current gender identity: Male Special dave needs: No Vitals/I&O/Wt Last Vital Signs Pulse 81 05/24/22 18:12 Resp 14 05/24/22 18:41 BP 121/65 05/24/22 18:12 Pulse Ox 100 05/24/22 18:12 O2 Del Method 05/24/22 18:12 FiO2 100 05/24/22 18:41 Weight last 48 hrs Weight 225 lb Physical Exam Narrative: GENERAL: In general he is obtunded, intubated but moving very slightly and making an attempt to breathe on his own. HEENT: Exam within normal limits. [] NECK: Supple without jugular vein distention. The carotid upstroke is normal without bruits. [] BACK: Exam normal. [] LUNGS: Clear. [] HEART: Regular rate and rhythm. [] ABDOMEN: Benign without organomegaly or tenderness. [] EXTREMITIES: No edema. [] NEUROLOGIC: Exam not done [] SKIN: There is a diffuse maculopapular rash throughout the torso and proximal lower extremities, proximal upper extremities Urinary Catheter Management: Tom: Cath Placed During This Visit: yes Urinary Catheter Date of Insertion: 05/24/22 Urinary Catheter Time of Insertion: 18:15 Data 05/24/22 18:27 05/24/22 18:27 A&P Assessment and plan (1) Cardiac arrest with ventricular fibrillation: (2) Signs of return of spontaneous circulation: (3) Coronary artery disease: Qualifiers: Coronary Disease-Associated Artery/Lesion type: [place] artery [place] vs. transplanted heart: [place] heart Associated angina: without angina Qualified Code(s): I25.10 - Atherosclerotic heart disease of 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 insulin use: with local company intermodal truck driver use Diabetes mellitus complication status: with hyperglycemia Qualified Code(s): E11.65 - Type 2 diabetes mellitus with hyperglycemia; Z79.4 - FPC (current) use of insulin (5) Hypertension: Qualifiers: Hypertension type: essential hypertension Qualified Code(s): I10 - Essential (primary) hypertension (6) Hyperlipidemia: Qualifiers: Hyperlipidemia type: mixed hyperlipidemia Qualified Code(s): E78.2 - Mixed hyperlipidemia (7) COPD (chronic obstructive pulmonary disease): Qualifiers: COPD type: unspecified COPD Qualified Code(s): J44.9 - Chronic obstructive pulmonary disease, unspecified (8) Obesity: (9) Tobacco abuse: (10) Skin rash: (11) Ischemic cardiomyopathy: Plan Patient will be taken to the cardiac catheterization laboratory to make sure there is nothing that is amenable to intervention. I do not expect to find anything new. I did have a chance to review his films prior to taking him to the catheterization laboratory. His LAD is occluded and the right coronary artery is occluded. Therefore the ST segment elevation on EKG in the field probably represented ischemia of the collateral vessels in the LAD during the period of collapse and resuscitation. It had resolved by the time he arrived here therefore his STs had resolved as well. On the EKG from the emergency room he has evidence of an old anterior wall myocardial infarction. He has developed a maculopapular rash which probably is a drug rash. He was given Benadryl and 125 mg of Solu-Medrol. As long as there is nothing which requires intervention, we will wait to see how his central nervous system does with this. Not sure how long he went without blood flow to his central nervous system. I had a detailed conversation with his and explained all of this to her. I also told her that we would need to wait to see if he awakened. We would then be able to have the discussion again as to whether or not he wants to be referred to a tertiary care center for consideration of open heart surgery though he may not be a candidate due to his underlying comorbidities. I suspect this was a primary cardiac arrhythmia brought on by an underlying ischemic cardiomyopathy complicated by acute on chronic ischemia. Consult Attestations Medical Necessity Statement: ICU management for out of hospital cardiac arrest Coding Level of Care Code New Pt Acute Motor Electrician for saw Bone Patient Type New History Comprehensive Exam Comprehensive Diagnoses Cardiac arrest with ventricular fibrillation I46.9; I49.01 Signs of return of spontaneous circulation Coronary artery disease I25.10 Coronary Disease-Associated Artery/Lesion type: [place] artery [place] vs. transplanted heart: [place] heart Associated angina: without angina Diabetes E11.65; Z79.4 Diabetes mellitus type: type 2 Diabetes mellitus half-way insulin use: with local company intermodal truck driver use Diabetes mellitus complication status: with hyperglycemia Hypertension I10 Hypertension type: essential hypertension Hyperlipidemia E78.2 Hyperlipidemia type: mixed hyperlipidemia COPD (chronic obstructive pulmonary disease) J44.9 COPD type: unspecified COPD Obesity E66.9 Tobacco abuse Z72.0 Skin rash R21 Ischemic cardiomyopathy I25.5
--- NOTE | 2022-05-24 20:14 | XRR_ITS ---
PROCEDURE INFORMATION: Exam: XR Chest Exam date and time: 05/24/2022 8:26 PM Age: 57 years old Clinical indication: Device placement; Ng tube; Patient HX: Check S/P ng placement; Additional info: Ng tube placement TECHNIQUE: Imaging protocol: Radiologic exam of the chest. Views: 1 view. COMPARISON: CR XR chest 1V portable [id number] 05/24/2022 6:16 PM FINDINGS: Tubes, catheters and devices: Endotracheal tube is in satisfactory position with its tip approximately 3.5 cm above the dimple. Nasogastric tube is in place with its tip in the stomach. External pacemaker leads are noted. Lungs: Visualized portions of the lungs are clear. Pleural spaces: Unremarkable. No pleural effusion. No pneumothorax. Heart/Mediastinum: Unremarkable. No cardiomegaly. Bones/joints: Unremarkable. XR/XR chest 1V portable [id number] IMPRESSION: 1. No acute infiltrate. 2. Satisfactory position of endotracheal tube and nasogastric tube
[2022-05-24 21:30] LABS: D Dimer >= 20.00 ug/mIFEU (0-0.59)
[2022-05-24 21:32] LABS: Lactate (Lactic Acid level) 4.9 mmol/L (0.5-2.2); Troponin 5 2HR 298.2 ng/L (0-15); Troponin 5 2HR Delta 244.2 ABS# (0-10)
[2022-05-24 21:33] LABS: Alanine Aminotransferase 441 U/L (0-41); Albumin Level 3.8 g/dL (3.5-5.2); Alkaline Phosphatase 119 U/L (40-130); Aspartate Amino Transferase 347 U/L (0-40); Blood Urea Nitrogen 15 mg/dL (6-20); Calcium 9.1 mg/dL (8.5-10.5); Carbon Dioxide 22 mmol/L (22-29); Chloride 100 mmol/L (98-107); Globulin 3.2 g/dL (1.3-4.6); Glomerular Filtration Rate 52.1 mL/min (90-130); Glucose 252 mg/dL (65-115); NT Pro B Type Natriuretic Pept 933 pg/mL (0-125); Osmolality Calculated 293 mOsm/kg (285-295); Sodium 137 mmol/L (136-145); Total Bilirubin 0.8 mg/dL (0.15-1.2)
[2022-05-24 21:44] LABS: Anion Gap 19.6 (5-19); Potassium 4.6 mmol/L (3.5-5.1)
--- NOTE | 2022-05-24 22:19 | ECG_ITS ---
[facility] Test Date: 2022-05-24 Pat Name: Adolfo Barton Department: Room: ICU09 Gender: Male Mechatronics Technician: : 1965 Requested By: Ayad Castillo Order Number: [id number] [address] MD: Chanell Esteves M.D. Measurements Intervals [place] Rate: 60 P: 44 ND: 205 QRS: -12 QRSD: 124 T: -87 QT: 455 QTc: 455 Interpretive Statements SINUS RHYTHM WITH FIRST DEGREE AV BLOCK POSSIBLE LEFT ATRIAL ENLARGEMENT [-0.1mV P-WAVE IN V1/V2] POSSIBLE OLD ANTEROSEPTAL MYOCARDIAL INFARCTION LEFT VENTRICULAR HYPERTROPHY AND ST-T CHANGE ANTEROLATERAL MYOCARDIAL INFARCTION , OF INDETERMINATE AGE Compared to ECG 05/24/2022 18:15:59 Left ventricular hypertrophy now present ST (T wave) deviation now present Myocardial infarct finding now present First degree AV block no longer present Electronically Signed On 05-25-2022 13:00:54 CUSTOMER SERVICES SUPERVISOR by Chanell Esteves M.D. [id number]
[2022-05-24 22:28] LABS: ABG PCO2 41.3 mmHg (35-45); Arterial Blood Gas Hematocrit 59.8 % (42-52); Base Excess ABG -5.8 mmol/L (-2.0-2.0); Blood Gas Allen Test Pos; Blood Gas Sample Site Radial, right; Blood Gas Sample Type Arterial; Blood Gas Tidal Volume 0.45; HCO3 ABG 20.4 mmol/L (22-26); Oxygen Device VENT
[2022-05-24] MEDS: sodium chloride 0.9% 1,000 ML 100 ML IV (23:10)
[2022-05-25] VITALS (76 sets, daily range): BP systolic 115–180; BP diastolic 77–127; PULSE 69–169; RESP 16–24; TEMP 36.3–37.7; O2SAT 93–100
[2022-05-25 02:20] LABS: Partial Thromboplastin Time 31.6 SECONDS (23.9-36.7)
[2022-05-25 02:24] LABS: Anion Gap 17.2 (5-19); Blood Urea Nitrogen 19 mg/dL (6-20); C Reactive Protein 10.1 mg/L (0.0-4.9); Calcium 9.3 mg/dL (8.5-10.5); Carbon Dioxide 22 mmol/L (22-29); Chloride 105 mmol/L (98-107); Glomerular Filtration Rate 56.7 mL/min (90-130); Glucose 242 mg/dL (65-115); Magnesium 2.3 mg/dL (1.7-2.3); Osmolality Calculated 300 mOsm/kg (285-295); Potassium 4.2 mmol/L (3.5-5.1); Sodium 140 mmol/L (136-145)
[2022-05-25 02:25] LABS: Lactate (Lactic Acid level) 3.7 mmol/L (0.5-2.2)
[2022-05-25 02:39] LABS: Troponin 5 6HR 661.2 ng/L (0-15)
[2022-05-25 02:41] LABS: Troponin 5 6HR Delta 607.2 ng/L (0-12)
[2022-05-25 04:13] LABS: ABG PCO2 34.5 mmHg (35-45); ABG PH Result 7.37 (7.35-7.45); Arterial Blood Gas Hematocrit 58.9 % (42-52); Base Excess ABG -4.4 mmol/L (-2.0-2.0); Blood Gas Sample Site Femoral, right; Blood Gas Sample Type Arterial; HCO3 ABG 19.9 mmol/L (22-26); Oxygen Device VENT
[2022-05-25 04:56] LABS: Basophils % 0.1 %; Eosinophils % 0.1 %; Hematocrit 58.4 % (42.0-52.0); Lymphocytes # 0.4 10^3/uL (0.8-4.8); Lymphocytes % 2.9 %; Mean Corpuscular HGB Conc 32.5 g/dL (30.0-36.0); Mean Corpuscular Volume 86.1 fl (80-94); Mean Platelet Volume 11.2 fL (7.4-10.4); Monocytes # 0.4 10^3/uL (0.2-0.9); Monocytes % 2.9 %; Neutrophils # 13.91 10^3/uL (1.8-7.7); Neutrophils % 93.5 %; Nucleated Red Blood Cells % 0 %; Platelet Count 145 10^3/cmm (130-400); Red Blood Count 6.78 10^6/uL (4.1-5.3); Red Cell Distribution Width 14.1 % (12.1-15.1); White Blood Count 14.9 10^3/uL (4.0-10.0)
[2022-05-25] MEDS: hyDRALAzine 20 mg/mL INJ 1 mL IVP (07:10)
--- NOTE | 2022-05-25 07:25 | PC.NURSE ---
Patient admitted to ICU 9 from clinical laboratory scientist with right femoral sheath in place and intubated. Patient has generalized hives which improved through the shift. Patient does not have sedation. Opens eyes to sternal rub but not following any commands. He will open eyes spontaneously with slight spontaneous movement.
[2022-05-25] MEDS: enoxaparin 40 mg/0.4 mL Syringe SUBCUT (08:18)
[2022-05-25] MEDS: pantoprazole 40 mg SDV IVP ×2 (08:18→17:54)
[2022-05-25] MEDS: atorvastatin 40 mg Tablet 80 MG PO (08:18)
[2022-05-25] MEDS: ipratropium-albuterol 3 mL Neb INHALATION ×3 (08:30→20:01)
--- NOTE | 2022-05-25 08:41 | PM.PN ---
Subjective Subjective: Night, the patient has been hemodynamically stable. He actually received some hydralazine for high blood pressure overnight. 2000 mL out total. 1000 mL in urine and 1000 mL in gastric drainage. Blood pressure this morning is 150/90. He remains on the ventilator. His mental status has probably improved slightly. He will open his eyes. He will respond by withdrawing to pain. There is no purposeful movement. He is moving all of his extremities on occasion however. His white blood cell count has come down. His hemoglobin hematocrit are still high at 19 and 58 respectively. Blood gas reveals a normal PO2, slightly low PCO2 and a normal pH. His creatinine is stable 1.3. Glomerular filtration rate is 56. His troponin at baseline was 54. 2-hour troponin 298. 6-hour troponin 607. His made him DNR last evening. Vitals/I&O/Wt Last Vital Signs Temp 98.2 F 05/25/22 04:30 Pulse 91 05/25/22 08:31 Resp 24 H 05/25/22 08:31 BP 166/127 05/25/22 07:00 Pulse Ox 93 05/25/22 08:31 O2 Del Method 05/25/22 08:31 FiO2 35 05/25/22 08:31 05/24/22 05/25/22 05/25/22 22:59 06:59 14:59 Output Total 1000 / 1000 1000 / 1000 Balance -1000 / -1000 -1000 / -1000 Weight last 48 hrs Weight 236 lb 9 oz Weight 240 lb Weight 225 lb Physical Exam Narrative: GENERAL: In general he remains obtunded. He is on the ventilator. There is no purposeful movement though he is moving to some degree. HEENT: Exam within normal limits. NECK: Supple without jugular vein distention. The carotid upstroke is normal without bruits. BACK: Exam normal. LUNGS: Clear. HEART: Regular rate and rhythm. ABDOMEN: Benign without organomegaly or tenderness. EXTREMITIES: No edema. NEUROLOGIC: Requiring mechanical ventilation. Does on occasion take a spontaneous breath. Will respond appropriately to suctioning. Will open his eyes but not to command. Will withdraw to pain stimuli. SKIN: Unremarkable. Urinary Catheter Management: Tom: Cath Placed During This Visit: yes Reason for Continuing Indwelling Catheter: Accurate Measurement of Urinary Output in Critically Ill Patients Urinary Catheter Date of Insertion: 05/24/22 Urinary Catheter Time of Insertion: 18:15 Data 12/06/22 04:05 05/25/22 01:40 A&P Assessment and plan (1) Ischemic cardiomyopathy: (2) Skin rash: (3) Tobacco abuse: (4) Signs of return of spontaneous circulation: (5) Cardiac arrest with ventricular fibrillation: (6) Coronary artery disease: Qualifiers: Coronary Disease-Associated Artery/Lesion type: [place] artery [place] vs. transplanted heart: [place] heart Associated angina: without angina Qualified Code(s): I25.10 - Atherosclerotic heart disease of [place] coronary artery without angina pectoris (7) Diabetes: Qualifiers: Diabetes mellitus type: type 2 Diabetes mellitus longterm insulin use: with rat exterminator use Diabetes mellitus complication status: with hyperglycemia Qualified Code(s): E11.65 - Type 2 diabetes mellitus with hyperglycemia; Z79.4 - ad terminal makeup operator (current) use of insulin (8) Hypertension: Qualifiers: Hypertension type: essential hypertension Qualified Code(s): I10 - Essential (primary) hypertension (9) Hyperlipidemia: Qualifiers: Hyperlipidemia type: mixed hyperlipidemia Qualified Code(s): E78.2 - Mixed hyperlipidemia (10) COPD (chronic obstructive pulmonary disease): Qualifiers: COPD type: unspecified COPD Qualified Code(s): J44.9 - Chronic obstructive pulmonary disease, unspecified (11) Obesity: Plan This hemodynamics have been stable. Urine output adequate. Creatinine okay. Now we wait to see if his central nervous system will recover. His is not here this morning. Continue current postresuscitation therapy. Attestations Medical Necessity Statement*: Requires ICU care for anoxic encephalopathy, ventilator dependence. Coding Level of Care Code Established Pt Acute Leather Fitter for [facility] Fwd Patient Type Established History Comprehensive Exam Comprehensive Medical Decision Making High Complexity Diagnoses Ischemic cardiomyopathy I25.5 Skin rash R21 Tobacco abuse Z72.0 Signs of return of spontaneous circulation Cardiac arrest with ventricular fibrillation I46.9; I49.01 Coronary artery disease I25.10 Coronary Disease-Associated Artery/Lesion type: [place] artery [place] vs. transplanted heart: [place] heart Associated angina: without angina Diabetes E11.65; Z79.4 Diabetes mellitus type: type 2 Diabetes mellitus rat exterminator insulin use: with longterm use Diabetes mellitus complication status: with hyperglycemia Hypertension I10 Hypertension type: essential hypertension Hyperlipidemia E78.2 Hyperlipidemia type: mixed hyperlipidemia COPD (chronic obstructive pulmonary disease) J44.9 COPD type: unspecified COPD Obesity E66.9
[2022-05-25] MEDS: sodium chloride 0.9% 1,000 ML 100 ML IV ×2 (09:56→15:16)
--- NOTE | 2022-05-25 14:00 | ECG_ITS ---
[facility] Test Date: 2022-05-25 Pat Name: Adolfo Barton Department: Room: ICU09 Gender: Male Staffing Operations Manager: : 1965 Requested By: Charles Ramirez Order Number: [id number] [address] MD: Chanell Esteves M.D. Measurements Intervals [place] Rate: 103 P: 57 IN: 188 QRS: -16 QRSD: 112 T: 127 QT: 350 QTc: 458 Interpretive Statements SINUS TACHYCARDIA POSSIBLE LEFT ATRIAL ENLARGEMENT LOW QRS VOLTAGE IN PRECORDIAL LEADS LEFT VENTRICULAR HYPERTROPHY AND ST-T CHANGE INFERIOR MYOCARDIAL INFARCTION , PROBABLY OLD ANTEROLATERAL MYOCARDIAL INFARCTION , OF INDETERMINATE AGE Compared to ECG 05/24/2022 22:19:23 Low QRS voltage now present Sinus rhythm no longer present First degree AV block no longer present ST (T wave) deviation still present Myocardial infarct finding still present Electronically Signed On 05-25-2022 18:50:01 CENTER MEDICAL AND LAB DIRECTOR by Chanell Esteves M.D. [id number]
--- NOTE | 2022-05-25 14:02 | P.PN_ITS ---
Subjective Subjective: He was reported to be opening eyes earlier, no purposeful movements. During my visit he is not responding. His life partner is at bedside. His life partner has been in discussion with care team so far. She tells me that the plan currently is to give it time to see how he may recover neurologica lly and to give it some time to see if he can wake up. She states that he had previously told her that if he was not recovering and chance of recovery was low he would not want to be on indefinite life support. States that he probably also spoke about this with his friend Sean. He does not have his wishes documented in advanced directives, although they were planning to do so. They are not but have lived together for years in common law marriage. During discussion he is noted to have occasional/rare facial twitch of eyelids, lips. Discussed with her concern for possible nonconvulsive seizures. Discussed empiric anticonvulsant medication for now. EEG. If these are seizures unf ortunately would portend worse prognosis following cardiac arrest. Vitals/I&O/Wt Last Vital Signs Temp 98.2 F 05/25/22 04:30 Pulse 104 H 05/25/22 12:00 Resp 19 H 05/25/22 12:12 BP 160/109 05/25/22 12:00 Pulse Ox 97 05/25/22 12:12 O2 Del Method 05/25/22 08:31 FiO2 30 05/25/22 12:12 05/24/22 05/25/22 05/25/22 22:59 06:59 14:59 Intake Total 1000 / 1000 Output Total 1000 / 1000 1850 / 1850 Balance -1000 / -1000 -850 / -850 Weight last 48 hrs Weight 107.303 kg Weight 108.862 kg Weight 102.058 kg Physical Exam Const: GENERAL APPEARANCE: patient mechanically ventilated ORIENTATION /CONSCIOUSNESS: Yes Other orientation findings (unresponsive) HENMT: COMMON NORMALS: oropharynx normal Resp: COMMON NORMALS: clear to auscultation bilaterally AUSCULTATION: clear to auscultation bilaterally Cardio: COMMON NORMALS: regular rhythm, S1 normal heart sound present, S2 normal heart sound present and No murmurs present (Cardio) RHYTHM: regular rhythm HEART SOUNDS: S1 normal heart sound present and S2 normal heart sound present GI: COMMON NORMALS: Normal to inspection, nondistended, normoactive bowel sounds present and Soft to palpation PALPATION: Yes Soft to palpation Extremity: COMMON NORMALS: no joint enlargement and no pedal edema Urinary Catheter Management: Tom: Cath Placed During This Visit: yes Reason for Continuing Indwelling Catheter: Accurate Measurement of Urinary Output in Critically Ill Patients Urinary Catheter Date of Insertion: 05/24/22 Urinary Catheter Time of Insertion: 18:15 Data 05/25/22 04:05 05/25/22 01:40 A&P Assessment and plan (1) Acute encephalopathy: So far unresponsive. Was reported opening eyes earlier. During my visit I do not see purposeful movements, he is not waking up at the moment. Noted to have occasional facial twitch of eyes, lips. As per discussion with hi s started on empiric anticonvulsant. We will request EEG as well. Discussed with his in case of seizures these unfortunately he would portend a worse prognosis for neurologic recovery. Continue supportive care, continue reassessment of neurologic recovery. Concern for anoxic/ischemic brain injury. (2) Cardiac arrest with ventricular fibrillation: Additional run of reported 60 seconds of ventricular tachycardia resolved spontaneously. Potassium magnesium checked earlier which were WNL. Obtain twelve-lead, amiodarone drip or as per cardiology. Discussed with her risk of AMIE with additional contrast load with assessment for PE by CTA, for now empirically anticoagulation with delayed imaging to allow time from prior contrast administration. GI prophylaxis with PPI. (3) Signs of return of spontaneous circulation: (4) ST elevation myocardial infarction (STEMI): (5) Neuropathy: (6) Coronary artery disease: Qualifiers: Coronary Disease-Associated Artery/Lesion type: [place] artery [place] vs. transplanted heart: [place] heart Associated angina: without angina Qualified Code(s): I25.10 - Atherosclerotic heart disease of [place] coronary artery without angina pectoris (7) Diabetes: POC glucose checks. Sliding scale insulin. Lantus 20 units nightly. Qualifiers: Diabetes mellitus type: type 2 Diabetes mellitus snf insulin use: with buttermaker helper use Diabetes mellitus complication status: with hyperglycemia Qualified Code(s): E11.65 - Type 2 diabetes mellitus with hyperglycemia; Z79.4 - technician terminal and repeater (current) use of insulin (8) Hypertension: Qualifiers: Hypertension type: essential hypertension Qualified Code(s): I10 - Essential (primary) hypertension (9) COPD (chronic obstructive pulmonary disease): Qualifiers: COPD type: unspecified COPD Qualified Code(s): J44.9 - Chronic obstructive pulmonary disease, unspecified (10) Obesity: (11) KB (acute kidney injury): Acute kidney injury after cardiac arrest, improving. Creatinine up to 1.3. (12) Transaminitis: Shock liver following cardiac arrest. Follow-up liver parameters. Continue supportive care. Plan His life partner states that he overall has also been recently tired. We will additionally assess rapid flu, COVID-19, TSH. Attestations Medical Necessity Statement*: Continue admission for further assessment management following cardiac arrest supportive care, reassessment of neurologic recovery, and a gentleman with underlying severe coronary disease. Coding Level of Care Code Acute Meat Blender for [facility] Fwd Diagnoses Acute encephalopathy G93.40 Cardiac arrest with ventricular fibrillation I46.9; I49.01 Signs of return of spontaneous circulation ST elevation myocardial infarction (STEMI) I21.3 Neuropathy G62.9 Coronary artery disease I25.10 Coronary Disease-Associated Artery/Lesion type: [place] artery [place] vs. transplanted heart: [place] heart Associated angina: without angina Diabetes E11.65; Z79.4 Diabetes mellitus type: type 2 Diabetes mellitus buttermaker helper insulin use: with snf use Diabetes mellitus complication status: with hyperglycemia Hypertension I10 Hypertension type: essential hypertension COPD (chronic obstructive pulmonary disease) J44.9 COPD type: unspecified COPD Obesity E66.9 KB (acute kidney injury) N17.9 Transaminitis R74.01
[2022-05-25 14:45] LABS: Glucose Point of Care 178 mg/dL (70-110)
[2022-05-25] MEDS: insulin lispro 100 unit/1 mL SUBCUT ×2 (15:15→20:26)
--- NOTE | 2022-05-25 17:05 | PC.NURSE ---
Pt had an episode of a wide complex rhythm on monitor around [address] Ramirez and Dr. Sagastume aware. New orders for ekg and amio drip. updated and asked about code status. She stated we would give meds only. No compressions, defib. or cardioverting.
[2022-05-25 18:17] LABS: Influenza A by IFA negative (Negative); Influenza B by IFA negative (Negative)
[2022-05-25] MEDS: heparin drip 25,000 UNIT/500 ML PREMIX 30.05 UNIT IV (19:00)
--- NOTE | 2022-05-25 19:00 | PC.NURSE ---
Heparin Upon shift assessment, heparin drip administering at 31 ml/hr per protocol while MAR displays heparin not administered yet. MAR updated to reflect administration.
[2022-05-25 19:56] LABS: Glucose Point of Care 195 mg/dL (70-110)
[2022-05-25 20:15] LABS: Partial Thromboplastin Time 121.4 SECONDS (23.9-36.7)
[2022-05-25] MEDS: insulin glargine 100 units/1 mL 20 UNIT SUBCUT (20:27)
[2022-05-25 21:21] LABS: Adenovirus Not Detected (NOT DETECT); Chlamydia Pneumoniae Not Detected (NOT DETECT); Coronavirus 229E,HKU1,NL63,OC4 Not Detected (NOT DETECT); Human Metapneumovirus Not Detected (NOT DETECT); Human Rhinovirus/Enterovirus Not Detected (NOT DETECT); Influenza A Not Detected (NOT DETECT); Influenza A H1 Not Detected (NOT DETECT); Influenza A H1-2009 Not Detected (NOT DETECT); Influenza A H3 Not Detected (NOT DETECT); Influenza B Not Detected (NOT DETECT); Mycoplasma Pneumoniae Not Detected (NOT DETECT); Parainfluenza Virus Type 1 Not Detected (NOT DETECT); Parainfluenza Virus Type 2 Not Detected (NOT DETECT); Parainfluenza Virus Type 3 Not Detected (NOT DETECT); Parainfluenza Virus Type 4 Not Detected (NOT DETECT); Respiratory Syncytial Virus A Not Detected (NOT DETECT); Respiratory Syncytial Virus B Not Detected (NOT DETECT); SARS-COV-2 Not Detected (NOT DETECT)
[2022-05-25] MEDS: dilTIAZem 5 mg/mL SDV 5 mL 15 MG IVP (22:33)
--- NOTE | 2022-05-25 23:00 | PC.NURSE ---
SVT While turning patient and changing bed linens, patient's heart rhythm changed to SVT with a HR in the 170s. Blood pressure and all other vitals stable. Dr. Melchor contacted and order received for one time 15 mg cardizem IVP. Medication administered per AUG. Following administration, patient's HR returned to ST ranging from about 99-105.
[2022-05-26] VITALS (38 sets, daily range): BP systolic 117–184; BP diastolic 79–113; PULSE 88–108; RESP 17–23; TEMP 37.3–37.7; O2SAT 95–98; BMI 37.8
[2022-05-26] MEDS: sodium chloride 0.9% 1,000 ML 100 ML IV ×2 (02:30→13:39)
[2022-05-26 02:35] LABS: Glucose Point of Care 186 mg/dL (70-110)
[2022-05-26] MEDS: insulin lispro 100 unit/1 mL SUBCUT ×2 (02:38→20:04)
[2022-05-26 03:02] LABS: Hematocrit 57.4 % (42.0-52.0); Hemoglobin 18.3 g/dL (11.7-16.6); Lymphocytes # 0.7 10^3/uL (0.8-4.8); Lymphocytes % 3.2 %; Mean Corpuscular HGB Conc 31.9 g/dL (30.0-36.0); Mean Corpuscular Hemoglobin 27.7 pg (28.0-34.0); Mean Platelet Volume 11.2 fL (7.4-10.4); Monocytes # 0.7 10^3/uL (0.2-0.9); Monocytes % 3.2 %; Neutrophils # 18.76 10^3/uL (1.8-7.7); Neutrophils % 92.9 %; Nucleated Red Blood Cells % 0 %; Platelet Count 149 10^3/cmm (130-400); Red Cell Distribution Width 14.6 % (12.1-15.1); White Blood Count 20.2 10^3/uL (4.0-10.0)
[2022-05-26 03:27] LABS: Partial Thromboplastin Time 98.4 SECONDS (23.9-36.7)
[2022-05-26 03:37] LABS: Alanine Aminotransferase 184 U/L (0-41); Albumin Level 3.3 g/dL (3.5-5.2); Alkaline Phosphatase 92 U/L (40-130); Anion Gap 18.6 (5-19); Aspartate Amino Transferase 71 U/L (0-40); Blood Urea Nitrogen 23 mg/dL (6-20); Calcium 9.2 mg/dL (8.5-10.5); Carbon Dioxide 19 mmol/L (22-29); Chloride 112 mmol/L (98-107); Glomerular Filtration Rate 52.1 mL/min (90-130); Glucose 198 mg/dL (65-115); Osmolality Calculated 311 mOsm/kg (285-295); Potassium 3.6 mmol/L (3.5-5.1); Sodium 146 mmol/L (136-145); Total Bilirubin 0.8 mg/dL (0.15-1.2); Total Protein 6.3 g/dL (6.6-8.7)
[2022-05-26] MEDS: chlorhexidine gluconate 4% Btl 118 mL 1 APPLIC TOPICAL (04:29)
[2022-05-26] MEDS: hyDRALAzine 20 mg/mL INJ 1 mL 10 MG IVP (05:44)
--- NOTE | 2022-05-26 05:52 | PC.NURSE ---
Blood pressure Patient's diastolic blood pressure maintaining >100, with a current pressure of 167/126. Dr. Melchor contacted and order for 10 mg IVP hydralazine once received. See MAR for medication administration.
[2022-05-26] MEDS: ipratropium-albuterol 3 mL Neb INHALATION ×2 (07:51→20:35)
--- NOTE | 2022-05-26 08:24 | P.PN_ITS ---
Subjective Subjective: Yesterday, the patient had several episodes of ventricular tachycardia. He had been made a DNR the night before however the issue of treatment with medications had not been delineated. In discussion with his common-law she requested that we treat him with medications. Therefore he was started on amiodarone intravenously. He has not had any further arrhythmias until just before I walked in the room this morning and he went into atrial fibrillation with a rate of about 170. He is not hemodynamically unstable with this. Otherwise, his mental status has not changed at all since yesterday. He responds to suctioning and deep tissue stimulation by withdrawing. He will on occasion open his eyes spontaneously. He does not have any purposeful movement to commands. He obviously remains on the ventilator. Gastric drainage yesterday 550 mL. Urinate but 1800 mL yesterday. Creatinine remains stable 1.4 today. Vitals/I&O/Wt Last Vital Signs Temp 99.1 F 05/26/22 07:29 Pulse 98 05/26/22 08:00 Resp 20 H 05/26/22 07:50 BP 184/95 05/26/22 07:29 Pulse Ox 98 05/26/22 07:50 O2 Del Method 05/26/22 07:50 FiO2 30 05/26/22 07:50 05/25/22 05/26/22 05/26/22 22:59 06:59 14:59 Intake Total 804.918 / 9941.967 1915.417 / 3185.335 Output Total 1500 / 3350 Balance 804.918 / 64.918 -229.583 / -164.665 Weight last 48 hrs Weight 241 lb 6.4 oz Weight 236 lb 9 oz Weight 240 lb Weight 225 lb Physical Exam Narrative: GENERAL: Obtunded, withdraws to pain, no purposeful movement HEENT: Exam within normal limits. NECK: Supple without jugular vein distention. The carotid upstroke is normal without bruits. BACK: Exam normal. LUNGS: Clear. HEART: Regular rate and rhythm. ABDOMEN: Benign without organomegaly or tenderness. EXTREMITIES: No edema. NEUROLOGIC: Exam as above SKIN: Unremarkable. Urinary Catheter Management: Tom: Cath Placed During This Visit: yes Reason for Continuing Indwelling Catheter: Accurate Measurement of Urinary Output in Critically Ill Patients Urinary Catheter Date of Insertion: 05/24/22 Urinary Catheter Time of Insertion: 18:15 Data 12/07/22 02:28 05/26/22 02:28 Micro: Microbiology 05/25/22 07:32 Gram Stain - Final Sputum - Endotracheal Tube Aspirate A&P Assessment and plan (1) Transaminitis: (2) KB (acute kidney injury): (3) Acute encephalopathy: (4) Ischemic cardiomyopathy: (5) Tobacco abuse: (6) Cardiac arrest with ventricular fibrillation: (7) Coronary artery disease: Qualifiers: Coronary Disease-Associated Artery/Lesion type: [place] artery [place] vs. transplanted heart: [place] heart Associated angina: without angina Qualified Code(s): I25.10 - Atherosclerotic heart disease of [place] coronary artery without angina pectoris (8) Diabetes: Qualifiers: Diabetes mellitus type: type 2 Diabetes mellitus assisted insulin use: with assisted use Diabetes mellitus complication status: with hyperglycemia Qualified Code(s): E11.65 - Type 2 diabetes mellitus with hyperglycemia; Z79.4 - terminal gauger supervisor (current) use of insulin (9) Hypertension: Qualifiers: Hypertension type: essential hypertension Qualified Code(s): I10 - Essential (primary) hypertension (10) Hyperlipidemia: Qualifiers: Hyperlipidemia type: mixed hyperlipidemia Qualified Code(s): E78.2 - Mixed hyperlipidemia (11) COPD (chronic obstructive pulmonary disease): Qualifiers: COPD type: unspecified COPD Qualified Code(s): J44.9 - Chronic obstructive pulmonary disease, unspecified (12) Obesity: (13) Atrial fibrillation: Plan His central nervous system is not responding positively. He clearly is not brain but cognitive function has not returned anywhere near normal. We will continue to support him. I will add a beta-cristian to his medications to see if we can convert the atrial fibrillation but we will not cardiovert him. Otherwise, no change. His common-law is not here this morning. Attestations Medical Necessity Statement*: Hospitalization still required for respiratory failure, out of hospital cardiac arrest and anoxic encephalopathy. Coding Level of Care Code Established Pt Acute Brand Advisor for [facility] Patient Type Established History Comprehensive Exam Comprehensive Medical Decision Making High Complexity Diagnoses Transaminitis R74.01 KB (acute kidney injury) N17.9 Acute encephalopathy G93.40 Ischemic cardiomyopathy I25.5 Tobacco abuse Z72.0 Cardiac arrest with ventricular fibrillation I46.9; I49.01 Coronary artery disease I25.10 Coronary Disease-Associated Artery/Lesion type: [place] artery [place] vs. transplanted heart: [place] heart Associated angina: without angina Diabetes E11.65; Z79.4 Diabetes mellitus type: type 2 Diabetes mellitus termite control service representative insulin use: with termite control service representative use Diabetes mellitus complication status: with hyperglycemia Hypertension I10 Hypertension type: essential hypertension Hyperlipidemia E78.2 Hyperlipidemia type: mixed hyperlipidemia COPD (chronic obstructive pulmonary disease) J44.9 COPD type: unspecified COPD Obesity E66.9 Atrial fibrillation I48.91
[2022-05-26] MEDS: aspirin 81 mg EC Tablet PO (08:48)
[2022-05-26] MEDS: atorvastatin 40 mg Tablet 80 MG PO (08:48)
[2022-05-26] MEDS: pantoprazole 40 mg SDV IVP ×2 (08:49→18:21)
[2022-05-26] MEDS: metoprolol tartrate 1 mg/1 mL SDV 5 mL 5 MG IVP (08:49)
[2022-05-26 11:34] LABS: Glucose Point of Care 164 mg/dL (70-110)
--- NOTE | 2022-05-26 11:42 | PC.CHAP ---
Pastoral Care Encounter/Spiritual Assessment Type of Contact [] Declined fermenter helper visit [] Patient/Family/Request visit [] Outpatient visit [] Follow-up visit [] Physician referral [] Code/Alert [x] Routine visit [] Staff referral [] Actively dying [x] Patient sleeping [] Family support [] [] Out of room [] Palliative care [] [] Receiving care in room [] Pre-surgical visit [] Trauma [] Long length of stay [x] ICU visit [x] Other: vent.... Relational/Emotional Strength [] Patient feels connected with others/family/visitors/staff [] Distress [] Loneliness/isolation [] Abandonment Spirituality of Patient [] Person of Rhianna [] Attends Buddhist of their Rhianna [] Believes in Prayer [] Reads Bible or Temple materials [] There are Spiritual issues to be addressed Depot Manager Interventions [x] Prayer [] Active listening [] Non-anxious presence [] Spiritual/emotional support [] Crisis/trauma care [] Spiritual counseling [] Bereavement support [] Provided bereavement packet [] Provided Bible/devotional materials [] Provided toy/stuffed animal, coloring book to patient or family member [] Provided Communion [] Anointing/[place] [] Salvation [x] Completed spiritual assessment [] Other: Impact on Illness or Injury [] Angry [] Fearful [] Anxious [] Often cries [] Exhaustion [] Unable to work [] Unable to attend jainism [] Unable to walk/stand [] Unable to read [] Unable to drive [] Unable to eat/drink [] Unable to sleep [] Unable to be with family [] Patient intubated [] Other: Summary Time spent with patient
[2022-05-26 12:15] LABS: Partial Thromboplastin Time 55.7 SECONDS (23.9-36.7)
--- NOTE | 2022-05-26 16:49 | P.PN_ITS ---
Subjective Subjective: Reported opening his eyes earlier. Not during my visit. Not waking up, not responding. Noted to have gag reflex earlier. Does have corneal reflex, testing corneal reflex triggering about 15 seconds of A. fib with RVR heart rate of 180s resolving spontaneously. Vitals/I&O/Wt Last Vital Signs Temp 99.1 F 05/26/22 07:29 Pulse 98 05/26/22 16:00 Resp 20 H 05/26/22 16:23 BP 184/95 05/26/22 16:00 Pulse Ox 96 05/26/22 16:23 O2 Del Method 05/26/22 07:50 FiO2 30 05/26/22 16:23 05/26/22 05/26/22 05/26/22 06:59 14:59 22:59 Intake Total 1270.417 / 3185.335 1305.967 / 1305.967 Output Total 1500 / 3350 1800 / 1800 Balance -229.583 / -164.665 -494.033 / -494.033 Weight last 48 hrs Weight 109.497 kg Weight 107.303 kg Weight 108.862 kg Weight 102.058 kg Physical Exam Const: GENERAL APPEARANCE: patient mechanically ventilated ORIENTATION/CONSCIOUSNESS: Yes Other orientation findings (unresponsive) HENMT: COMMON NORMALS: oropharynx normal Resp: COMMON NORMALS: clear to auscultation bilaterally AUSCULTATION: clear to auscultation bilaterally Cardio: COMMON NORMALS: S1 normal heart sound present, S2 normal heart sound present and No murmurs present (Cardio) RHYTHM: abnormal rhythm irregularly irregular HEART SOUNDS: S1 normal heart sound present and S2 normal heart sound present GI: COMMON NORMALS: Normal to inspection, nondistended, normoactive bowel sounds present and Soft to palpation PALPATION: Yes Soft to palpation Extremity: COMMON NORMALS: no joint enlargement and no pedal edema Urinary Catheter Management: Tom: Cath Placed During This Visit: yes Reason for Continuing Indwelling Catheter: Accurate Measurement of Urinary Output in Critically Ill Patients Urinary Catheter Date of Insertion: 05/24/22 Urinary Catheter Time of Insertion: 18:15 Data 05/26/22 02:28 05/26/22 02:28 Micro: Microbiology 05/25/22 07:32 Gram Stain - Final Sputum - Endotracheal Tube Aspirate Sputum Culture - Preliminary 05/24/22 18:51 Urine Culture - Final Urine,Clean Catch A&P Assessment and plan (1) Acute encephalopathy: So far not waking up, no purposeful movements. Was reported to be opening eyes. Noted gag reflex, corneal reflex continue supportive care for 72 hours after event, this will be around night, reassessment on Tuesday morning for neurological recovery. No further facial twitches noted today. Continue Keppra. EEG pending. (2) Cardiac arrest with ventricular fibrillation: Overnight atrial fibrillation with RVR. Received Cardizem, this morning received metoprolol push. Continues on amiodarone drip. Follow-up potassium magnesium level. Discussed with her risk of AMIE with additional contrast load with assessment for PE by CTA, for now empirically anticoagulation with delayed imaging to allow time from prior contrast administration and reassessment of KB. Empiric anticoagulation with heparin. GI prophylaxis with PPI. (3) Leukocytosis: No obvious source of infection with lungs clear, UA not suggestive of UTI, no diarrhea. Leukocytosis noted rising up to 20. Temp highest 99.9F. Leukocytosis may be stress related. Possible aspiration with cardiac arrest. Will obtain blood culture, empirically cover with vancomycin, cefepime. Follow- up sputum sputum culture, urine culture. (4) Atrial fibrillation: Received Cardizem last night. This morning also received metoprolol push. Continues on amiodarone drip. (5) Signs of return of spontaneous circulation: (6) ST elevation myocardial infarction (STEMI): (7) Neuropathy: (8) Coronary artery disease: Qualifiers: Associated angina: without angina Coronary Disease-Associated Artery/Lesion type: [place] artery [place] vs. transplanted heart: [place] heart Qualified Code(s): I25.10 - Atherosclerotic heart disease of [place] coronary artery without angina pectoris (9) Diabetes: POC glucose checks. Sliding scale insulin. Increase Lantus to 25 units nightly. Qualifiers: Diabetes mellitus complication status: with hyperglycemia Diabetes mellitus alf insulin use: with termite exterminator use Diabetes mellitus type: type 2 Qualified Code(s): E11.65 - Type 2 diabetes mellitus with hyperglycemia; Z79.4 - nursing home (current) use of insulin (10) Hypertension: Qualifiers: Hypertension type: essential hypertension Qualified Code(s): I10 - Essential (primary) hypertension (11) COPD (chronic obstructive pulmonary disease): Qualifiers: COPD type: unspecified COPD Qualified Code(s): J44.9 - Chronic obstructive pulmonary disease, unspecified (12) Obesity: (13) KB (acute kidney injury): Creatinine up to 1.4. Suspect ATN following cardiac arrest with lack of renal perfusion. Continue fluid challenge. Hold lisinopril. Obtain kidney ultrasound. Reassess renal function. Vaishali (14) Transaminitis: Improving. Shock liver following cardiac arrest. Follow-up liver parameters. Continue supportive care. Plan His life partner states that he overall has also been recently tired. Negative rapid flu, COVID-19, unremarkable TSH. Attestations Medical Necessity Statement*: Continue admission for assessment of management of neurologic recovery following cardiac arrest. Critical Care Time: The high probability of a clinically significant, sudden or life threatening deterioration of the patient's neurologic, infectious disease system(s) required my full and direct attention, intervention and personal management. The critical care time is as shown. This time is in ad dition to time spent performing any reported procedures but includes the following: x Data and vital sign review and interpretation x Patient assessment, examination and intervention x Documentation x Medication orders and management Critical Care Time (min): 50 Coding Level of Care Code Acute Proposal Writer for g Fwd Exam Detailed Diagnoses Acute encephalopathy G93.40 Cardiac arrest with ventricular fibrillation I46.9; I49.01 Leukocytosis D72.829 Atrial fibrillation I48.91 Signs of return of spontaneous circulation ST elevation myocardial infarction (STEMI) I21.3 Neuropathy G62.9 Coronary artery disease I25.10 Associated angina: without angina Coronary Disease-Associated Artery/Lesion type: [place] artery [place] vs. transplanted heart: [place] heart Diabetes E11.65; Z79.4 Diabetes mellitus complication status: with hyperglycemia Diabetes mellitus alf insulin use: with termite exterminator use Diabetes mellitus type: type 2 Hypertension I10 Hypertension type: essential hypertension COPD (chronic obstructive pulmonary disease) J44.9 COPD type: unspecified COPD Obesity E66.9 KB (acute kidney injury) N17.9 Transaminitis R74.01
[2022-05-26 17:01] LABS: Partial Thromboplastin Time 52.1 SECONDS (23.9-36.7)
--- NOTE | 2022-05-26 17:21 | USR_ITS ---
PROCEDURE INFORMATION: Exam: US Retroperitoneal; Complete; Kidneys and Bladder Exam date and time: 05/26/2022 5:38 PM Age: 57 years old Clinical indication: Condition or disease; Other: Ned TECHNIQUE: Imaging protocol: Real-time ultrasound of the retroperitoneum with image documentation. Complete exam focused on the kidneys and bladder. COMPARISON: CT lung screening [id number] 12/17/2021 10:58 AM FINDINGS: Limitations: Study is limited due to patient body habitus and position. Liver: There is diffusely increased echogenicity in the liver consistent with fatty change. Right kidney: Right kidney measures 9.7 x 4.3 x 6.6 cm with normal cortical thickness and echogenicity. There is no focal mass, stone or hydronephrosis. Left kidney: Left kidney is not as well seen due to patient body habitus and position. Left kidney measures 7.8 x 4.0 x 5.3 cm with grossly normal cortical thickness and echogenicity. No hydronephrosis is identified. Urinary bladder: Urinary bladder is drained by Tom catheter and is not visualized on this exam. US/US renal BI* [id number] IMPRESSION: 1. Fatty liver 2. No hydronephrosis.
[2022-05-26] MEDS: vancomycin 1,500 MG/300 ML PIGGYBACK 200 MG IV (18:22)
[2022-05-26] MEDS: lactated ringers 1,000 ML 100 ML IV (18:22)
[2022-05-26] MEDS: insulin glargine 100 units/1 mL 25 UNIT SUBCUT (20:05)
[2022-05-26 20:09] LABS: Glucose Point of Care 171 mg/dL (70-110)
--- NOTE | 2022-05-26 22:00 | PC.NURSE ---
CONSTANCE Garcia with [facility] called and received patient update. If neurological changes occur, to call with updates.
[2022-05-27] VITALS (43 sets, daily range): BP systolic 103–153; BP diastolic 84–108; PULSE 82–120; RESP 16–27; TEMP 36.9–38.1; O2SAT 88–98; BMI 37.0
[2022-05-27] MEDS: chlorhexidine gluconate 4% Btl 118 mL 1 APPLIC TOPICAL (01:24)
[2022-05-27 02:02] LABS: Glucose Point of Care 164 mg/dL (70-110)
[2022-05-27] MEDS: insulin lispro 100 unit/1 mL SUBCUT ×4 (02:10→20:12)
[2022-05-27 04:17] LABS: Basophils % 0.1 %; Eosinophils % 0.1 %; Hematocrit 54.1 % (42.0-52.0); Hemoglobin 17.7 g/dL (11.7-16.6); Lymphocytes # 0.8 10^3/uL (0.8-4.8); Lymphocytes % 4.4 %; Mean Corpuscular HGB Conc 32.7 g/dL (30.0-36.0); Mean Corpuscular Hemoglobin 28.5 pg (28.0-34.0); Mean Platelet Volume 11.3 fL (7.4-10.4); Monocytes # 0.8 10^3/uL (0.2-0.9); Monocytes % 4.1 %; Neutrophils # 17.02 10^3/uL (1.8-7.7); Neutrophils % 90.8 %; Nucleated Red Blood Cells % 0 %; Platelet Count 128 10^3/cmm (130-400); Red Blood Count 6.22 10^6/uL (4.1-5.3); Red Cell Distribution Width 14.5 % (12.1-15.1); White Blood Count 18.7 10^3/uL (4.0-10.0)
[2022-05-27 04:32] LABS: Alanine Aminotransferase 96 U/L (0-41); Albumin Level 3.1 g/dL (3.5-5.2); Alkaline Phosphatase 71 U/L (40-130); Anion Gap 15.8 (5-19); Aspartate Amino Transferase 46 U/L (0-40); Blood Urea Nitrogen 33 mg/dL (6-20); Calcium 9.1 mg/dL (8.5-10.5); Carbon Dioxide 20 mmol/L (22-29); Chloride 115 mmol/L (98-107); Globulin 2.8 g/dL (1.3-4.6); Glomerular Filtration Rate 62.2 mL/min (90-130); Glucose 164 mg/dL (65-115); Magnesium 2.4 mg/dL (1.7-2.3); Osmolality Calculated 315 mOsm/kg (285-295); Potassium 3.8 mmol/L (3.5-5.1); Sodium 147 mmol/L (136-145); Total Bilirubin 0.8 mg/dL (0.15-1.2); Total Protein 5.9 g/dL (6.6-8.7)
[2022-05-27] MEDS: heparin 5,000 unit/mL INJ 1 mL IV ×2 (05:12→18:21)
[2022-05-27] MEDS: lactated ringers 1,000 ML 100 ML IV (05:13)
--- NOTE | 2022-05-27 07:02 | PC.NURSE ---
Blood pressure Patient's diastolic blood pressure maintaining in the 100s. Dr. Melchor notified; no new orders received.
--- NOTE | 2022-05-27 07:56 | PM.PN ---
Subjective Subjective: There has been no change in the patient's mental status overnight. He still has no purposeful movement. He will occasionally spontaneously open his eyes, move his extremities. He responds to painful stimuli by slightly withdrawing. He does not follow commands. He will still occasionally have brief episodes of ventricular tachycardia and atrial fibrillation with a rapid ventricular response. The beta-cristian yesterday has controlled the heart rate for the most part. He has been hypertensive. Creatinine has actually come down to 1.2. He had a renal ultrasound which was unremarkable. His echo reveals his ejection fraction has dropped to around 10 to 15%. Nasogastric tube output 300 mL. Urine output 2250 mL. An EEG is pending. Vitals/I&O/Wt Last Vital Signs Temp 99.6 F 05/27/22 04:00 Pulse 88 05/27/22 06:00 Resp 20 H 05/27/22 05:00 BP 152/102 05/27/22 06:00 Pulse Ox 95 05/27/22 06:00 O2 Del Method 05/27/22 04:00 FiO2 30 05/27/22 05:00 05/26/22 05/27/22 05/27/22 22:59 06:59 14:59 Intake Total 795 / 2100.967 1664.48 / 3765.447 Output Total 1550 / 3350 1250 / 4600 Balance -755 / -1249.033 414.48 / -834.553 Weight last 48 hrs Weight 236 lb 14.4 oz Weight 241 lb 6.4 oz Physical Exam Narrative: GENERAL: In general he remains obtunded. He is on the ventilator. Minimal spontaneous movements of opening eyes and moving extremities. He withdraws to deep pain. No purposeful movements or response to commands. HEENT: Exam within normal limits. NECK: Supple without jugular vein distention. The carotid upstroke is normal without bruits. BACK: Exam normal. LUNGS: Clear. HEART: Regular rate and rhythm. ABDOMEN: Benign without organomegaly or tenderness. EXTREMITIES: No edema. NEUROLOGIC: Exam as above. SKIN: Unremarkable. Urinary Catheter Management: Tom: Cath Placed During This Visit: yes Reason for Continuing Indwelling Catheter: Accurate Measurement of Urinary Output in Critically Ill Patients Urinary Catheter Date of Insertion: 05/24/22 Urinary Catheter Time of Insertion: 18:15 Data 05/27/22 03:50 05/27/22 03:50 Micro: Microbiology 05/26/22 18:00 Blood Culture - Preliminary Blood SPECIMEN COLLECTED 05/26/22 17:45 Blood Culture - Preliminary Blood SPECIMEN COLLECTED 05/25/22 07:32 Gram Stain - Final Sputum - Endotracheal Tube Aspirate Sputum Culture - Preliminary 05/24/22 18:51 Urine Culture - Final Urine,Clean Catch A&P Assessment and plan (1) Leukocytosis: (2) Atrial fibrillation: (3) Transaminitis: (4) Acute encephalopathy: (5) Ischemic cardiomyopathy: (6) Tobacco abuse: (7) Cardiac arrest with ventricular fibrillation: (8) Coronary artery disease: Qualifiers: Coronary Disease-Associated Artery/Lesion type: [place] artery [place] vs. transplanted heart: [place] heart Associated angina: without angina Qualified Code(s): I25.10 - Atherosclerotic heart disease of [place] coronary artery without angina pectoris (9) Diabetes: Qualifiers: Diabetes mellitus type: type 2 Diabetes mellitus termite control servicer insulin use: with mcc use Diabetes mellitus complication status: with hyperglycemia Qualified Code(s): E11.65 - Type 2 diabetes mellitus with hyperglycemia; Z79.4 - termite control service representative (current) use of insulin (10) Hypertension: Qualifiers: Hypertension type: essential hypertension Qualified Code(s): I10 - Essential (primary) hypertension (11) Hyperlipidemia: Qualifiers: Hyperlipidemia type: mixed hyperlipidemia Qualified Code(s): E78.2 - Mixed hyperlipidemia (12) Obesity: Plan I will order some hydralazine for his blood pressure. There has been no meaningful improvement in his neurological status. His brainstem is working however his cerebral cortex is not. We will await the results of the EEG and move forward from there. In the meantime his respirations and other vital signs are being supported. Attestations Medical Necessity Statement*: Requires hospital stay for out of hospital cardiac arrest. Coding Level of Care Code Established Pt Acute Reel Worker for Chg Fwd Patient Type Established History Comprehensive Exam Comprehensive Medical Decision Making High Complexity Diagnoses Leukocytosis D72.829 Atrial fibrillation I48.91 Transaminitis R74.01 Acute encephalopathy G93.40 Ischemic cardiomyopathy I25.5 Tobacco abuse Z72.0 Cardiac arrest with ventricular fibrillation I46.9; I49.01 Coronary artery disease I25.10 Coronary Disease-Associated Artery/Lesion type: [place] artery [place] vs. transplanted heart: [place] heart Associated angina: without angina Diabetes E11.65; Z79.4 Diabetes mellitus type: type 2 Diabetes mellitus mcc insulin use: with mcc use Diabetes mellitus complication status: with hyperglycemia Hypertension I10 Hypertension type: essential hypertension Hyperlipidemia E78.2 Hyperlipidemia type: mixed hyperlipidemia Obesity E66.9
[2022-05-27] MEDS: ipratropium-albuterol 3 mL Neb INHALATION ×2 (07:57→19:59)
[2022-05-27] MEDS: heparin drip 25,000 UNIT/500 ML PREMIX 23 UNIT IV (08:02)
[2022-05-27 08:06] LABS: Glucose Point of Care 154 mg/dL (70-110)
[2022-05-27] MEDS: aspirin 81 mg EC Tablet PO (09:19)
[2022-05-27] MEDS: pantoprazole 40 mg SDV IVP ×2 (09:20→17:33)
[2022-05-27] MEDS: atorvastatin 40 mg Tablet 80 MG PO (09:20)
--- NOTE | 2022-05-27 10:44 | PM.PN ---
Subjective Subjective: Course reviewed. Patient unchanged yesterday. Not responsive on the ventilator. Medications: Reviewed: Yes Vitals/I&O/Wt Last Vital Signs Temp 98.5 F 05/27/22 07:00 Pulse 97 05/27/22 10:00 Resp 18 05/27/22 09:12 BP 146/102 05/27/22 10:00 Pulse Ox 95 05/27/22 10:00 O2 Del Method 05/27/22 07:57 FiO2 30 05/27/22 09:12 05/26/22 05/27/22 05/27/22 22:59 06:59 14:59 Intake Total 795 / 2100.967 1687.48 / 3788.447 Output Total 1550 / 3350 1250 / 4600 150 / 150 Balance -755 / -1249.033 437.48 / -811.553 -150 / -150 Weight last 48 hrs Weight 107.456 kg Weight 109.497 kg Physical Exam Narrative: General exam demonstrates an unresponsive patient HEENT: Pupils equally round. Gaze not quite conjugate, more with right esotropia. Endotracheal tube and orogastric tube noted Neck supple no lymphadenopathy thyromegaly Cardiovascular regular rate and rhythm Lungs clear no wheezing or crackles Abdomen is soft obese nontender positive bowel sounds Extremities no cyanosis clubbing or edema, cap refill brisk Skin no rash Neuro: Pupillary reflexes present. Urinary Catheter Management: Tom: Cath Placed During This Visit: yes Reason for Continuing Indwelling Catheter: Accurate Measurement of Urinary Output in Critically Ill Patients Urinary Catheter Date of Insertion: 05/24/22 Urinary Catheter Time of Insertion: 18:15 Data 05/27/22 03:50 05/27/22 03:50 Micro: Microbiology 05/26/22 18:00 Blood Culture - Preliminary Blood SPECIMEN COLLECTED 05/26/22 17:45 Blood Culture - Preliminary Blood SPECIMEN COLLECTED 05/25/22 07:32 Gram Stain - Final Sputum - Endotracheal Tube Aspirate Sputum Culture - Preliminary 05/24/22 18:51 Urine Culture - Final Urine,Clean Catch A&P Assessment and plan (1) Acute encephalopathy: Still no purposeful movement. Does have gag reflex, sucks on the tube, corneal reflex Awaiting at least 72 hours hours after code, which will be tonight. Reassessment plan Tuesday morning Awaiting EEG Obtain CT head Continue Keppra currently. No evidence of generalized seizures Continue to monitor off sedation currently. (2) Cardiac arrest with ventricular fibrillation: Continue amiodarone drip. Continue metoprolol as needed Follow-up potassium magnesium level. Discussed with her risk of AMIE with additional contrast load with assessment for PE by CTA, for now empirically anticoagulation with delayed imaging to allow time from prior contrast administration and reassessment of KB. Empiric anticoagulation with heparin. GI prophylaxis with PPI. (3) Leukocytosis: No obvious source of infection. Continue cefepime and vancomycin empirically. White blood cell count has decreased slightly. (4) Atrial fibrillation: Continue amiodarone drip. Metoprolol as needed (5) Signs of return of spontaneous circulation: (6) ST elevation myocardial infarction (STEMI): Ejection fraction significantly low. Echocardiogram demonstrates EF 10 to 15%. Decrease fluids slightly. (7) Neuropathy: (8) Coronary artery disease: He was taken to the angiogram suite shortly after arriving in the emergency department. No new findings from last angiogram, three-vessel disease with recommendation for potential bypass surgery should his mental status recover. Qualifiers: Coronary Disease-Associated Artery/Lesion type: [place] artery [place] vs. transplanted heart: [place] heart Associated angina: without angina Qualified Code(s): I25.10 - Atherosclerotic heart disease of [place] coronary artery without angina pectoris (9) Diabetes: Sliding scale insulin Reduce long-acting insulin, to try to prevent any potential hypoglycemia. Qualifiers: Diabetes mellitus type: type 2 Diabetes mellitus prison insulin use: with prison use Diabetes mellitus complication status: with hyperglycemia Qualified Code(s): E11.65 - Type 2 diabetes mellitus with hyperglycemia; Z79.4 - superintendent container terminal (current) use of insulin (10) Hypertension: Qualifiers: Hypertension type: essential hypertension Qualified Code(s): I10 - Essential (primary) hypertension (11) COPD (chronic obstructive pulmonary disease): Qualifiers: COPD type: unspecified COPD Qualified Code(s): J44.9 - Chronic obstructive pulmonary disease, unspecified (12) Obesity: (13) KB (acute kidney injury): No obstruction on ultrasound Continue to hold lisinopril Renal function has improved (14) Transaminitis: Secondary to cardiac arrest, improving Plan His life partner states that he overall has also been recently tired. Negative rapid flu, COVID-19, unremarkable TSH. Attestations Medical Necessity Statement*: Needs continued hospitalization secondary to unresponsive state following cardiac arrest Coding Level of Care Code Acute Pediatric Sports Medicine Specialist for [place] Fwd Diagnoses Acute encephalopathy G93.40 Cardiac arrest with ventricular fibrillation I46.9; I49.01 Leukocytosis D72.829 Atrial fibrillation I48.91 Signs of return of spontaneous circulation ST elevation myocardial infarction (STEMI) I21.3 Neuropathy G62.9 Coronary artery disease I25.10 Coronary Disease-Associated Artery/Lesion type: [place] artery [place] vs. transplanted heart: [place] heart Associated angina: without angina Diabetes E11.65; Z79.4 Diabetes mellitus type: type 2 Diabetes mellitus extermination inspector insulin use: with extermination inspector use Diabetes mellitus complication status: with hyperglycemia Hypertension I10 Hypertension type: essential hypertension COPD (chronic obstructive pulmonary disease) J44.9 COPD type: unspecified COPD Obesity E66.9 KB (acute kidney injury) N17.9 Transaminitis R74.01
[2022-05-27 11:10] LABS: Partial Thromboplastin Time 62.6 SECONDS (23.9-36.7)
[2022-05-27] MEDS: dextrose 5%-sod chloride 0.45% 1,000 ML 50 ML IV (12:18)
[2022-05-27] MEDS: vancomycin 1,500 MG/300 ML PIGGYBACK 200 MG IV (12:19)
[2022-05-27] MEDS: metoprolol tartrate 1 mg/1 mL SDV 5 mL 5 MG IVP (13:50)
[2022-05-27 14:22] LABS: Glucose Point of Care 181 mg/dL (70-110)
--- NOTE | 2022-05-27 15:40 | PC.NURSE ---
[address] Sagastume. Reviewed vital signs, heart rhythm, neuro status, medications and plan for EEG today. Orders for PRN medication for elevated BP. 1355 Dr. Hua notified of patient's frequent ectopy, wide complex tachycardia. Labs reviewed. Orders to increase Amio drip to 1 mg/min and contact Dr. Sagastume. [address] Sagastume to report frequent runs of wide complex tachycardia. Orders for Amio bolus and increase drip rate to 1 mg/min. 1500 Dr. Hua at bedside to update patient's family. Orders to hold CT scan until patient is more stable.
--- NOTE | 2022-05-27 16:50 | P.MISC_ITS ---
Miscellaneous Note Note: ORDERING PHYSICIAN: Dr. Ramirez. REASON FOR STUDY: Profound encephalopathy following prolonged anoxia. STUDY: This was a 21 channel digital electroencephalogram performed using the 10-20 international system of electrode placement. This study was performed at the bedside in ICU and the patient was unresponsive. FINDINGS: The background consisted of high-voltage extremely rhythmic 2-1/2 Hz slow wave activity of greatest voltage in the bifrontal leads. I would presume that this is artifact because of his extreme regularity and lack of variability. There was low voltage fast activity in the posterior leads. Eye-movement and blinking were described by the electro mechanical solar technician and occurred at a time that the bifrontal high-voltage rhythmic activity was not present. He was described by the electro mechanical solar technician as awake, by which she meant that he had his eyes open. Pressure on the left orbital ridge did not change the background. IMPRESSION: Abnormal EEG because of diffuse slowing of the background. There were variety of artifacts as a result of being in the ICU including a high- voltage rhythmic activity in the bifrontal leads. The background was slow. There were no epileptiform features. This record is of moderately good quality and suggest profound diffuse brain dysfunction but the degree of dysfunction cannot be predicted because of the amount of artifact. There was no sign of underlying seizures. Duration of EE.1
[2022-05-27 18:07] LABS: Partial Thromboplastin Time 45.7 SECONDS (23.9-36.7)
[2022-05-27] MEDS: acetaminophen 500 mg Tablet PO (19:17)
[2022-05-27 19:56] LABS: Glucose Point of Care 145 mg/dL (70-110)
[2022-05-27] MEDS: insulin glargine 100 units/1 mL 10 UNIT SUBCUT (20:11)
[2022-05-28] VITALS (74 sets, daily range): BP systolic 91–178; BP diastolic 68–124; PULSE 74–157; RESP 16–24; TEMP 37.3–37.6; O2SAT 91–97
[2022-05-28 00:09] LABS: Partial Thromboplastin Time 73.5 SECONDS (23.9-36.7)
[2022-05-28] MEDS: insulin lispro 100 unit/1 mL SUBCUT ×3 (02:18→20:31)
[2022-05-28 02:19] LABS: Glucose Point of Care 144 mg/dL (70-110)
[2022-05-28] MEDS: chlorhexidine gluconate 4% Btl 118 mL 1 APPLIC TOPICAL (02:19)
[2022-05-28] MEDS: ipratropium-albuterol 3 mL Neb INHALATION ×2 (02:53→07:42)
[2022-05-28 05:07] LABS: Basophils % 0.1 %; Hemoglobin 17.7 g/dL (11.7-16.6); Mean Corpuscular HGB Conc 32.2 g/dL (30.0-36.0); Mean Corpuscular Hemoglobin 28.4 pg (28.0-34.0); Mean Corpuscular Volume 88.3 fl (80-94); Mean Platelet Volume 11.3 fL (7.4-10.4); Monocytes # 0.6 10^3/uL (0.2-0.9); Monocytes % 4.2 %; Neutrophils # 12.97 10^3/uL (1.8-7.7); Neutrophils % 88.1 %; Nucleated Red Blood Cells % 0 %; Platelet Count 104 10^3/cmm (130-400); Red Blood Count 6.23 10^6/uL (4.1-5.3); Red Cell Distribution Width 14.6 % (12.1-15.1); White Blood Count 14.7 10^3/uL (4.0-10.0)
[2022-05-28 05:19] LABS: Partial Thromboplastin Time 52.9 SECONDS (23.9-36.7)
[2022-05-28 05:20] LABS: ABG PCO2 31.6 mmHg (35-45); ABG PH Result 7.45 (7.35-7.45); Arterial Blood Gas Hematocrit 53.9 % (42-52); Base Excess ABG -1.1 mmol/L (-2.0-2.0); Blood Gas Allen Test Pos; Blood Gas Operator Identificat JB; Blood Gas Sample Site Radial, right; Blood Gas Sample Type Arterial; HCO3 ABG 21.8 mmol/L (22-26); Oxygen Device VENT; PO2 ABG 73.3 mmHg (80.0-100.0)
[2022-05-28 05:24] LABS: Alanine Aminotransferase 60 U/L (0-41); Albumin Level 2.9 g/dL (3.5-5.2); Alkaline Phosphatase 64 U/L (40-130); Aspartate Amino Transferase 34 U/L (0-40); Blood Urea Nitrogen 30 mg/dL (6-20); Calcium 8.6 mg/dL (8.5-10.5); Carbon Dioxide 20 mmol/L (22-29); Chloride 115 mmol/L (98-107); Globulin 2.8 g/dL (1.3-4.6); Glomerular Filtration Rate 68.8 mL/min (90-130); Glucose 144 mg/dL (65-115); Magnesium 2.3 mg/dL (1.7-2.3); Osmolality Calculated 313 mOsm/kg (285-295); Sodium 147 mmol/L (136-145); Total Bilirubin 1.1 mg/dL (0.15-1.2); Total Protein 5.7 g/dL (6.6-8.7)
[2022-05-28 05:26] LABS: Anion Gap 15.6 (5-19); Potassium 3.6 mmol/L (3.5-5.1)
[2022-05-28] MEDS: vancomycin 1,500 MG/300 ML PIGGYBACK 200 MG IV ×2 (05:49→23:54)
[2022-05-28] MEDS: heparin drip 25,000 UNIT/500 ML PREMIX 25 UNIT IV (05:51)
[2022-05-28] MEDS: heparin 5,000 unit/mL INJ 1 mL IV (06:33)
--- NOTE | 2022-05-28 07:00 | CT_ITS ---
WS: [id number] CT scan of the head, 05/28/2022 Clinical Data: post code Comparison: CT head, 09/28/2021 DLP: 1142.[address] scans at [facility] use at least one of these dose optimization techniques: automated e xposure control; mA and/or kV adjustment per patient size (includes targeted exams where dose is matc hed to clinical indication); or iterative reconstruction. Findings: The ventricular system is moderately dilated without shift. There is an area of low density in the le ft parietal lobe which probably represents a chronic infarct unchanged. No recent infarct or hemorrha ge is seen. There are no abnormal intracerebral masses. The cerebellum and brainstem are not remarkab le. Bony windows of the skull and skull base show no fractures or erosions. The mastoid air cells, leadership program internship al auditory canals, sella turcica, intraorbital contents, and paranasal sinuses are unremarkable. No scalp abnormalities are seen. CT/CT head wo con* [id number] Impression: 1. Ventricular dilatation unchanged. 2. Chronic left parietal infarct unchanged. 3. Negative for acute intracranial abnormalities.
--- NOTE | 2022-05-28 07:00 | XR_ITS ---
WS: [id number] EXAMINATION: XR chest 1V portable [id number] REASON FOR EXAM: resp failure COMPARISON: 05/24/2022 ORDER DATE: 05/28/2022 7:03 AM TECHNIQUE: A single, portable frontal chest x-ray was obtained. X-RAY FINDINGS: Endotracheal tube is 3 cm above the idmple. Enteric tube is below the diaphragm ending in the stomach . There is pulmonary edema with bilateral effusions. XR/XR chest 1V portable [id number] IMPRESSION: Development of pulmonary edema since previous study..
[2022-05-28 07:23] LABS: Glucose Point of Care 139 mg/dL (70-110)
--- NOTE | 2022-05-28 07:28 | P.PN_ITS ---
Subjective Subjective: Patient is unchanged. Vancomycin has been added. Still on intravenous amiodarone, heparin. Still having occasional bursts of atrial fibrillation and perhaps nonsustained ventricular tachycardia. Unfortunately, his mental status has not changed. White blood cell count has come down slightly to 14.7. EEG results are still pending. Vitals/I&O/Wt Last Vital Signs Temp 99.7 F H 05/28/22 04:00 Pulse 90 05/28/22 06:00 Resp 21 H 05/28/22 06:32 BP 153/104 05/28/22 06:00 Pulse Ox 94 05/28/22 06:32 O2 Del Method 05/28/22 06:00 FiO2 30 05/28/22 06:32 05/27/22 05/28/22 05/28/22 22:59 06:59 14:59 Intake Total 298.433 / 1230.515 907.067 / 2137.582 Output Total 900 / 1800 1275 / 3075 Balance -601.567 / -569.485 -367.933 / -937.418 Weight last 48 hrs Weight 241 lb 6.4 oz Weight 236 lb 14.4 oz Physical Exam Narrative: GENERAL: In general he is unchanged neurologically HEENT: Exam within normal limits. NECK: Supple without jugular vein distention. The carotid upstroke is normal without bruits. BACK: Exam normal. LUNGS: Clear. HEART: Regular rate and rhythm. ABDOMEN: Benign without organomegaly or tenderness. EXTREMITIES: No edema. NEUROLOGIC: Exam reveals inability to respond to spoken command. He still withdraws to pain. He reacts to suctioning. Overall he is still obtunded. SKIN: Unremarkable. Urinary Catheter Management: Tom: Cath Placed During This Visit: yes Reason for Continuing Indwelling Catheter: Accurate Measurement of Urinary Output in Critically Ill Patients Urinary Catheter Date of Insertion: 05/24/22 Urinary Catheter Time of Insertion: 18:15 Data 05/28/22 04:55 05/28/22 04:55 Micro: Microbiology 05/26/22 18:00 Blood Culture - Preliminary Blood NEGATIVE TO DATE 05/26/22 17:45 Blood Culture - Preliminary Blood NEGATIVE TO DATE 05/25/22 07:32 Gram Stain - Final Sputum - Endotracheal Tube Aspirate Sputum Culture - Preliminary A&P Assessment and plan (1) Leukocytosis: (2) Atrial fibrillation: (3) Transaminitis: (4) KB (acute kidney injury): (5) Acute encephalopathy: (6) Ischemic cardiomyopathy: (7) Tobacco abuse: (8) Cardiac arrest with ventricular fibrillation: (9) Coronary artery disease: Qualifiers: Coronary Disease-Associated Artery/Lesion type: [place] artery [place] vs. transplanted heart: [place] heart Associated angina: without angina Qualified Code(s): I25.10 - Atherosclerotic heart disease of [place] coronary artery without angina pectoris (10) Diabetes: Qualifiers: Diabetes mellitus type: type 2 Diabetes mellitus exterminator termite insulin use: with pen[facility] use Diabetes mellitus complication status: with hyperglycemia Qualified Code(s): E11.65 - Type 2 diabetes mellitus with hyperglycemia; Z79.4 - intermediate (current) use of insulin (11) Hypertension: Qualifiers: Hypertension type: essential hypertension Qualified Code(s): I10 - Essential (primary) hypertension (12) Hyperlipidemia: Qualifiers: Hyperlipidemia type: mixed hyperlipidemia Qualified Code(s): E78.2 - Mixed hyperlipidemia (13) COPD (chronic obstructive pulmonary disease): Qualifiers: COPD type: unspecified COPD Qualified Code(s): J44.9 - Chronic obstructive pulmonary disease, unspecified Attestations Medical Necessity Statement*: Continued hospitalization for purposes of management of out of hospital cardiac arrest. 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 transplanted heart: [place] heart Associated angina: without angina Diabetes E11.65; Z79.4 Diabetes mellitus type: type 2 Diabetes mellitus exterminator termite insulin use: with exterminator termite use Diabetes mellitus complication status: with hyperglycemia Hypertension I10 Hypertension type: essential hypertension Hyperlipidemia E78.2 Hyperlipidemia type: mixed hyperlipidemia COPD (chronic obstructive pulmonary disease) J44.9 COPD type: unspecified COPD
[2022-05-28] MEDS: aspirin 81 mg Chew Tablet PO (08:33)
[2022-05-28] MEDS: atorvastatin 40 mg Tablet 80 MG PO (08:33)
[2022-05-28] MEDS: pantoprazole 40 mg SDV IVP ×2 (08:33→17:17)
[2022-05-28] MEDS: metoprolol tartrate 1 mg/1 mL SDV 5 mL 5 MG IVP ×5 (09:35→21:15)
--- NOTE | 2022-05-28 10:11 | PC.NURSE ---
0820 Reviewed CXR and lung sounds with Dr. Ramirez. Orders to DC IVF. [address] Ramirez to report patient's elevated heart rate. 5 mg of IV lopressor given per order. Orders to repeat times [address] Sagastume. [address] Sagastume to report elevated heart. Vitals reported. No new orders at this time.
--- NOTE | 2022-05-28 10:33 | PC.NURSE ---
[address] Sagastume to report patient's heart rate unchanged. Orders to continue to monitor until next dose of IV lopressor in 4 hours.
--- NOTE | 2022-05-28 12:35 | PM.PN ---
Subjective Subjective: Not waking up, no purposeful movements. Moving occasionally, reported to be opening his eyes occasionally but not looking around, not making contact, not communicating. On second visit discussed his condition and findings so far also with his life partner and brother who are both at bedside. Discussed also results of EEG and CT head. Another brother is supposed to be coming to town from [place] tomorrow. Family request that we continue supportive care for now unchanged so that they may then reassess his condition and consider further decisions. Medications: Reviewed: Yes Vitals/I&O/Wt Last Vital Signs Temp 99.2 F 05/28/22 07:00 Pulse 153 H 05/28/22 10:15 Resp 20 H 05/28/22 11:12 BP 93/68 05/28/22 10:15 Pulse Ox 96 05/28/22 11:12 O2 Del Method 05/28/22 07:35 FiO2 30 05/28/22 11:12 05/27/22 05/28/22 05/28/22 22:59 06:59 14:59 Intake Total 298.433 / 1230.515 907.067 / 2137.582 410 / 410 Output Total 900 / 1800 1275 / 3075 Balance -601.567 / -569.485 -367.933 / -937.418 410 / 410 Weight last 48 hrs Weight 109.497 kg Weight 107.456 kg Physical Exam Const: GENERAL APPEARANCE: patient mechanically ventilated NUTRITIONAL APPEARANCE: obese ORIENTATION/CONSCIOUSNESS: Yes Other orientation findings (Unresponsive) Resp: COMMON NORMALS: normal respiratory effort and clear to auscultation bilaterally AUSCULTATION: clear to auscultation bilaterally Cardio: COMMON NORMALS: S1 normal heart sound present, S2 normal heart sound present and No murmurs present (Cardio) RATE: tachycardic RHYTHM: abnormal rhythm irregularly irregular HEART SOUNDS: S1 normal heart sound present and S2 normal heart sound present GI: COMMON NORMALS: Normal to inspection, nondistended, normoactive bowel sounds present and Soft to palpation PALPATION: Yes Soft to palpation Extremity: COMMON NORMALS: no joint enlargement and no pedal edema Skin: COMMON NORMALS: no rashes or lesions noted GENERAL SKIN EXAM: no rashes or lesions noted Urinary Catheter Management: Tom: Cath Placed During This Visit: yes Reason for Continuing Indwelling Catheter: Accurate Measurement of Urinary Output in Critically Ill Patients Urinary Catheter Date of Insertion: 05/24/22 Urinary Catheter Time of Insertion: 18:15 Data 05/28/22 04:55 05/28/22 04:55 Micro: Microbiology 05/26/22 18:00 Blood Culture - Preliminary Blood NEGATIVE TO DATE 05/26/22 17:45 Blood Culture - Preliminary Blood NEGATIVE TO DATE 05/25/22 07:32 Gram Stain - Final Sputum - Endotracheal Tube Aspirate Sputum Culture - Preliminary A&P Assessment and plan (1) Acute encephalopathy: Not waking up. No purposeful movements. Having pupillary, corneal, gag reflex. EEG without seizure, diffuse slowing, with artifact, without additional prognosticating value. CT head unchanged from September with chronic left parietal infarct, ventricular dilation. No acute abnormality. Continue Keppra empirically. No evidence of generalized seizures. Low-grade fever. Empiric antibiotics as below, by fever may also be central. Overall poor prognosis given severity of underlying CAD, cardiomyopathy. Continue to monitor off sedation currently. Another brother is coming to town and family asked to continue care before reassessment and revisiting goals of care. (2) Cardiac arrest with ventricular fibrillation: Continue amiodarone drip. Continue metoprolol as needed Discussed with her risk of AMIE with additional contrast load with assessment for PE by CTA, for now empirically anticoagulation with delayed imaging to allow time from prior contrast administration and reassessment of KB. Empiric anticoagulation with heparin. GI prophylaxis with PPI. (3) Ischemic cardiomyopathy: Pulmonary edema on x-ray. DC IV fluid. (4) Leukocytosis: No obvious source of infection. Leukocytosis decrease continues on vancomycin, although I am not sure what happened to cefepime as I do not see it continued. Even though leukocytosis is decreasing, with low-grade fever 100.6 F last night, will still have him on cefepime empirically. (5) Atrial fibrillation: Continue amiodarone drip. After arriving from CT A. fib with RVR 150s. Metoprolol 5 mg IV given x2, without improvement. Pending additional metoprolol as per cardiology instructions. Will give 20 mEq potassium. K is 3.6. Magnesium is good. (6) Signs of return of spontaneous circulation: (7) ST elevation myocardial infarction (STEMI): Ejection fraction significantly low. Echocardiogram demonstrates EF 10 to 15%. Decrease fluids slightly. (8) Neuropathy: (9) Coronary artery disease: He was taken to the angiogram suite shortly after arriving in the emergency department. No new findings from last angiogram, three-vessel disease with recommendation for potential bypass surgery should his mental status recover. Qualifiers: Associated angina: without angina Coronary Disease-Associated Artery/Lesion type: [place] artery [place] vs. transplanted heart: [place] heart Qualified Code(s): I25.10 - Atherosclerotic heart disease of [place] coronary artery without angina pectoris (10) Diabetes: Sliding scale insulin Reduce long-acting insulin, to try to prevent any potential hypoglycemia. 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 system installer insulin use: with milking system installer use Diabetes mellitus type: type 2 Qualified Code(s): E11.65 - Type 2 diabetes mellitus with hyperglycemia; Z79.4 - [facility] (current) use of insulin (11) Hypertension: Qualifiers: Hypertension type: essential hypertension Qualified Code(s): I10 - Essential (primary) hypertension (12) COPD (chronic obstructive pulmonary disease): Qualifiers: COPD type: unspecified COPD Qualified Code(s): J44.9 - Chronic obstructive pulmonary disease, unspecified (13) Obesity: (14) KB (acute kidney injury): No obstruction on ultrasound Continue to hold lisinopril Renal function has improved (15) Transaminitis: Secondary to cardiac arrest, improving Plan His life partner states that he overall has also been recently tired. Negative rapid flu, COVID-19, unremarkable TSH. Likely secondary to cardiomyopathy/low EF. Attestations Medical Necessity Statement*: Continue supportive measures for reassessment of neurological recovery following cardiac arrest. Critical Care Time: The high probability of a clinically significant, sudden or life threatening deterioration of the patient's neurologic system(s) required my full and direct attention, intervention and personal management. The critical care time is as shown. This time is in addition to time spent performing any reported procedures but includes the following: x Data and vital sign review and interpretation x Patient assessment, examination and intervention x Documentation x Medication orders and management Critical Care Time (min): 50 Coding Level of Care Code Acute Motor Vehicles Inspector for [facility] Fwd Exam Detailed Diagnoses Acute encephalopathy G93.40 Cardiac arrest with ventricular fibrillation I46.9; I49.01 Ischemic cardiomyopathy I25.5 Leukocytosis D72.829 Atrial fibrillation I48.91 Signs of return of spontaneous circulation ST elevation myocardial infarction (STEMI) I21.3 Neuropathy G62.9 Coronary artery disease I25.10 Associated angina: without angina Coronary Disease-Associated Artery/Lesion type: [place] artery [place] vs. transplanted heart: [place] heart Diabetes E11.65; Z79.4 Diabetes mellitus complication status: with hyperglycemia Diabetes mellitus usp insulin use: with milking system installer use Diabetes mellitus type: type 2 Hypertension I10 Hypertension type: essential hypertension COPD (chronic obstructive pulmonary disease) J44.9 COPD type: unspecified COPD Obesity E66.9 KB (acute kidney injury) N17.9 Transaminitis R74.01
[2022-05-28 12:55] LABS: Partial Thromboplastin Time 61.3 SECONDS (23.9-36.7)
[2022-05-28] MEDS: cefepime 2,000 MG in sodium chloride 0.9% (plus) 50 ML 100 MG IV (13:35)
[2022-05-28] MEDS: lidocaine 1% 5 ML in potassium chloride premix 100 ML 50 ML IV (13:36)
[2022-05-28 13:38] LABS: Glucose Point of Care 157 mg/dL (70-110)
[2022-05-28 18:10] LABS: Partial Thromboplastin Time 64.3 SECONDS (23.9-36.7)
[2022-05-28] MEDS: insulin glargine 100 units/1 mL 10 UNIT SUBCUT (20:31)
[2022-05-28 20:36] LABS: Glucose Point of Care 157 mg/dL (70-110)
[2022-05-28 23:29] LABS: Vancomycin Trough 12.4 ug/mL (10-15)
[2022-05-28 23:33] LABS: Partial Thromboplastin Time 77.4 SECONDS (23.9-36.7)
[2022-05-29] VITALS (54 sets, daily range): BP systolic 100–146; BP diastolic 75–113; PULSE 72–151; RESP 15–24; TEMP 37.1–38.8; O2SAT 94–98
[2022-05-29] MEDS: cefepime 2,000 MG in sodium chloride 0.9% (plus) 50 ML 100 MG IV ×3 (00:23→23:48)
[2022-05-29] MEDS: chlorhexidine gluconate 4% Btl 118 mL 1 APPLIC TOPICAL (00:24)
[2022-05-29] MEDS: metoprolol tartrate 1 mg/1 mL SDV 5 mL 5 MG IVP ×6 (01:47→23:44)
[2022-05-29 01:48] LABS: Glucose Point of Care 134 mg/dL (70-110)
[2022-05-29] MEDS: heparin drip 25,000 UNIT/500 ML PREMIX 25 UNIT IV (02:07)
[2022-05-29 04:57] LABS: Basophils % 0.1 %; Eosinophils % 0.1 %; Hematocrit 55.9 % (42.0-52.0); Hemoglobin 17.6 g/dL (11.7-16.6); Lymphocytes # 1.4 10^3/uL (0.8-4.8); Lymphocytes % 9.8 %; Mean Corpuscular HGB Conc 31.5 g/dL (30.0-36.0); Mean Corpuscular Hemoglobin 27.8 pg (28.0-34.0); Mean Corpuscular Volume 88.4 fl (80-94); Mean Platelet Volume 12.1 fL (7.4-10.4); Monocytes # 0.8 10^3/uL (0.2-0.9); Monocytes % 5.9 %; Neutrophils % 83.5 %; Nucleated Red Blood Cells % 0 %; Platelet Count 107 10^3/cmm (130-400); Red Blood Count 6.32 10^6/uL (4.1-5.3); Red Cell Distribution Width 14.4 % (12.1-15.1); White Blood Count 14.1 10^3/uL (4.0-10.0)
[2022-05-29 05:19] LABS: Partial Thromboplastin Time 71.6 SECONDS (23.9-36.7)
[2022-05-29 05:22] LABS: Alanine Aminotransferase 70 U/L (0-41); Albumin Level 2.8 g/dL (3.5-5.2); Alkaline Phosphatase 71 U/L (40-130); Anion Gap 14.5 (5-19); Aspartate Amino Transferase 50 U/L (0-40); Blood Urea Nitrogen 43 mg/dL (6-20); Calcium 8.6 mg/dL (8.5-10.5); Carbon Dioxide 19 mmol/L (22-29); Chloride 111 mmol/L (98-107); Glomerular Filtration Rate 56.7 mL/min (90-130); Glucose 150 mg/dL (65-115); Osmolality Calculated 306 mOsm/kg (285-295); Potassium 3.5 mmol/L (3.5-5.1); Sodium 141 mmol/L (136-145); Total Bilirubin 1.8 mg/dL (0.15-1.2); Total Protein 5.8 g/dL (6.6-8.7)
[2022-05-29 05:47] LABS: ABG PCO2 29.5 mmHg (35-45); ABG PH Result 7.43 (7.35-7.45); Arterial Blood Gas Hematocrit 55.3 % (42-52); Base Excess ABG -3.5 mmol/L (-2.0-2.0); Blood Gas Allen Test Pos; Blood Gas Sample Type Arterial; Carboxyhemoglobin 1.3 %THgb (0.4-20.1); HCO3 ABG 19.3 mmol/L (22-26); Ionized Calcium Level - ABG 1.2 mmol/L (1.1-1.4); Methemoglobin 0.7 % (0.4-1.5); PO2 ABG 83.1 mmHg (80.0-100.0); Potassium Level - ABG 3.6 mmol/L (3.5-5.0)
[2022-05-29 05:52] LABS: Alveolar-Arterial Oxygen Gradi 12.1 mmHg (5-10); Blood Gas Operator Identificat JB; Blood Gas Sample Site Radial, right; Oxygen Device VENT
[2022-05-29 07:54] LABS: Glucose Point of Care 156 mg/dL (70-110)
[2022-05-29] MEDS: aspirin 81 mg Chew Tablet PO (08:41)
[2022-05-29] MEDS: insulin lispro 100 unit/1 mL SUBCUT ×2 (08:41→20:27)
[2022-05-29] MEDS: atorvastatin 40 mg Tablet 80 MG PO (08:41)
[2022-05-29] MEDS: pantoprazole 40 mg SDV IVP ×2 (08:41→17:19)
--- NOTE | 2022-05-29 09:02 | USR_ITS ---
PROCEDURE INFORMATION: Exam: US Abdomen, Limited; Right Upper Quadrant Exam date and time: 05/29/2022 11:09 AM Age: 57 years old Clinical indication: Abnormal findings; Abnormal lab test; Other: Elevated bili; Additional info: Tbili elev TECHNIQUE: Imaging protocol: Real time ultrasound of the abdomen with image documentation. Limited exam focused on the right upper quadrant. COMPARISON: US renal BI with PV bladder 05/26/2022 5:38 PM FINDINGS: Liver: Echogenic, consistent with fatty infiltration. Gallbladder: Cholelithiasis without gallbladder wall thickening or pericholecystic fluid. Negative sonographic Vernon's sign, as per the glove cleaner. Biliary ducts: Normal. No stones. No dilation. Pancreas: Unremarkable as visualized. Right kidney: No mass. No definite stones. No hydronephrosis. US/US gall bladder [id number] IMPRESSION: 1. Cholelithiasis without sonographic evidence of acute cholecystitis. 2. Fatty liver.
[2022-05-29 09:23] LABS: Magnesium 2.5 mg/dL (1.7-2.3)
--- NOTE | 2022-05-29 09:30 | PM.PN ---
Subjective Subjective: Adolfo is unchanged overnight. His neurologic status is the same. He continues to go in and out of rapid atrial fibrillation. He remains on IV amiodarone and heparin. Total urine output is 1800. Gastric drainage output is 500 mL. Family is inviting his siblings to come and visit. His blood pressure has been stable. Vitals/I&O/Wt Last Vital Signs Temp 99.0 F 05/29/22 04:00 Pulse 149 H 05/29/22 08:57 Resp 22 H 05/29/22 08:57 BP 120/92 05/29/22 06:00 Pulse Ox 98 05/29/22 08:57 O2 Del Method 05/29/22 08:57 FiO2 30 05/29/22 08:57 05/28/22 05/29/22 05/29/22 22:59 06:59 14:59 Intake Total 623 / 1083 941.65 / 4.65 Output Total 400 / 1150 1050 / 2200 100 / 100 Balance 223 / -67 -108.35 / -175.35 -100 / -100 Weight last 48 hrs Weight 260 lb 1.6 oz Weight 241 lb 6.4 oz Physical Exam Narrative: GENERAL: In general he is unchanged neurologically HEENT: Exam within normal limits. NECK: Supple without jugular vein distention. The carotid upstroke is normal without bruits. BACK: Exam normal. LUNGS: Clear. HEART: Regular rate and rhythm. ABDOMEN: Benign without organomegaly or tenderness. EXTREMITIES: No edema. NEUROLOGIC: Exam reveals obtundation. He still responds to deep painful stimuli, suctioning and will occasionally spontaneously move his extremities and open his eyes. SKIN: Unremarkable. Urinary Catheter Management: Tom: Cath Placed During This Visit: yes Reason for Continuing Indwelling Catheter: Accurate Measurement of Urinary Output in Critically Ill Patients Urinary Catheter Date of Insertion: 05/24/22 Urinary Catheter Time of Insertion: 18:15 Data 05/29/22 04:41 05/29/22 04:41 A&P Assessment and plan (1) Leukocytosis: (2) Atrial fibrillation: (3) Transaminitis: (4) KB (acute kidney injury): (5) Acute encephalopathy: (6) Ischemic cardiomyopathy: (7) Tobacco abuse: (8) Cardiac arrest with ventricular fibrillation: (9) Coronary artery disease: Qualifiers: Coronary Disease-Associated Artery/Lesion type: [place] artery [place] vs. transplanted heart: [place] heart Associated angina: without angina Qualified Code(s): I25.10 - Atherosclerotic heart disease of [place] coronary artery without angina pectoris (10) Diabetes: Qualifiers: Diabetes mellitus type: type 2 Diabetes mellitus [facility] insulin use: with [facility] use Diabetes mellitus complication status: with hyperglycemia Qualified Code(s): E11.65 - Type 2 diabetes mellitus with hyperglycemia; Z79.4 - [facility] (current) use of insulin (11) Hyperlipidemia: Qualifiers: Hyperlipidemia type: mixed hyperlipidemia Qualified Code(s): E78.2 - Mixed hyperlipidemia (12) COPD (chronic obstructive pulmonary disease): Qualifiers: COPD type: unspecified COPD Qualified Code(s): J44.9 - Chronic obstructive pulmonary disease, unspecified (13) Obesity: Plan His neurologic status is not changed and has not improved. We are awaiting the final report of the EEG. It seems as though his brainstem is still intact however his cerebral cortex is not working. His vital signs remained fairly stable. He remains ventilator dependent. His prognosis is extremely poor. Attestations Medical Necessity Statement*: Hospitalization for out of hospital arrest. Coding Level of Care Code Acute Integration Analyst for g Fwd History Detailed Exam Detailed Medical Decision Making Moderate Complexity Diagnoses Leukocytosis D72.829 Atrial fibrillation I48.91 Transaminitis R74.01 KB (acute kidney injury) N17.9 Acute encephalopathy G93.40 Ischemic cardiomyopathy I25.5 Tobacco abuse Z72.0 Cardiac arrest with ventricular fibrillation I46.9; I49.01 Coronary artery disease I25.10 Coronary Disease-Associated Artery/Lesion type: [place] artery [place] vs. transplanted heart: [place] heart Associated angina: without angina Diabetes E11.65; Z79.4 Diabetes mellitus type: type 2 Diabetes mellitus [facility] insulin use: with [facility] use Diabetes mellitus complication status: with hyperglycemia Hyperlipidemia E78.2 Hyperlipidemia type: mixed hyperlipidemia COPD (chronic obstructive pulmonary disease) J44.9 COPD type: unspecified COPD Obesity E66.9
[2022-05-29 12:25] LABS: Partial Thromboplastin Time 69.1 SECONDS (23.9-36.7)
[2022-05-29 13:31] LABS: Glucose Point of Care 131 mg/dL (70-110)
[2022-05-29] MEDS: vancomycin 1,500 MG/300 ML PIGGYBACK 200 MG IV (17:19)
[2022-05-29 17:53] LABS: Partial Thromboplastin Time 76.7 SECONDS (23.9-36.7)
--- NOTE | 2022-05-29 18:12 | PM.PN ---
Subjective Subjective: Unresponsive. Medications: Reviewed: Yes Vitals/I&O/Wt Last Vital Signs Temp 99.1 F 05/29/22 11:00 Pulse 147 H 05/29/22 16:00 Resp 20 H 05/29/22 17:49 BP 124/91 05/29/22 16:00 Pulse Ox 97 05/29/22 17:49 O2 Del Method 05/29/22 08:57 FiO2 30 05/29/22 17:49 05/29/22 05/29/22 05/29/22 06:59 14:59 22:59 Intake Total 941.65 / 2024.65 651.477 / 651.477 Output Total 1050 / 2200 650 / 650 Balance -108.35 / -175.35 1.477 / 1.477 Weight last 48 hrs Weight 117.979 kg Weight 109.497 kg Physical Exam Const: GENERAL APPEARANCE: patient mechanically ventilated NUTRITIONAL APPEARANCE: obese ORIENTATION/CONSCIOUSNESS: Yes Other orientation findings (Unresponsive) Resp: COMMON NORMALS: normal respiratory effort and clear to auscultation bilaterally AUSCULTATION: clear to auscultation bilaterally Cardio: COMMON NORMALS: S1 normal heart sound present, S2 normal heart sound present and No murmurs present (Cardio) RATE: tachycardic RHYTHM: abnormal rhythm irregularly irregular HEART SOUNDS: S1 normal heart sound present and S2 normal heart sound present GI: COMMON NORMALS: Normal to inspection, nondistended, normoactive bowel sounds present and Soft to palpation PALPATION: Yes Soft to palpation Extremity: COMMON NORMALS: no joint enlargement and no pedal edema Skin: COMMON NORMALS: no rashes or lesions noted GENERAL SKIN EXAM: no rashes or lesions noted Urinary Catheter Management: Tom: Cath Placed During This Visit: yes Reason for Continuing Indwelling Catheter: Accurate Measurement of Urinary Output in Critically Ill Patients Urinary Catheter Date of Insertion: 05/24/22 Urinary Catheter Time of Insertion: 18:15 Data 05/29/22 04:41 05/29/22 04:41 A&P Assessment and plan (1) Acute encephalopathy: No improvement. No purposeful movements, not waking up now 5 days after the event. Chances of recovery progressively lower. No chance of recovery due to out of hospital arrest, cardiac arrest, myoclonus. Unfortunately poor prognosis even if he does regain some neurological recovery given severe cardiac disease. Discussed additionally with his brother and nephew who arrived today. Family will further discuss among themselves, consider neurology evaluation, although family are aware of his severe underlying cardiac comorbidity. Pupillary, corneal, gag reflex. EEG without seizure, diffuse slowing, with artifact, without additional prognosticating value. CT head unchanged from September with chronic left parietal infarct, ventricular dilation. No acute abnormality. Continue Keppra empirically. No evidence of generalized seizures. Low-grade fever. Empiric antibiotics as below, by fever may also be central. Overall poor prognosis given severity of underlying CAD, cardiomyopathy. Continue to monitor off sedation currently. Another brother is coming to town and family asked to continue care before reassessment and revisiting goals of care. (2) Cardiac arrest with ventricular fibrillation: Continue amiodarone drip. Continue metoprolol as needed GI prophylaxis with PPI. Severe underlying multivessel CAD. Cardiomyopathy. (3) Ischemic cardiomyopathy: Pulmonary edema on x-ray. (4) Leukocytosis: No obvious source of infection. So far no further fevers. Continue empirically cefepime, vancomycin. Gallbladder ultrasound obtained, with cholelithiasis without evidence of cholecystitis. Fatty liver. Sputum culture with heavy normal mckinley. Blood culture remains negative. Urine culture without growth. (5) Atrial fibrillation: Continue amiodarone drip. Metoprolol. Additional 20 mEq potassium. (6) Signs of return of spontaneous circulation: (7) ST elevation myocardial infarction (STEMI): Ejection fraction significantly low. Echocardiogram demonstrates EF 10 to 15%. (8) Neuropathy: (9) Coronary artery disease: He was taken to the angiogram suite shortly after arriving in the emergency department. No new findings from last angiogram, three-vessel disease with recommendation for potential bypass surgery should his mental status recover. Qualifiers: Coronary Disease-Associated Artery/Lesion type: [place] artery [place] vs. transplanted heart: [place] heart Associated angina: without angina Qualified Code(s): I25.10 - Atherosclerotic heart disease of [place] coronary artery without angina pectoris (10) Diabetes: Sliding scale insulin Reduce long-acting insulin, to try to prevent any potential hypoglycemia. Qualifiers: Diabetes mellitus type: type 2 Diabetes mellitus terminal operator insulin use: with assisted use Diabetes mellitus complication status: with hyperglycemia Qualified Code(s): E11.65 - Type 2 diabetes mellitus with hyperglycemia; Z79.4 - care home (current) use of insulin (11) Hypertension: Qualifiers: Hypertension type: essential hypertension Qualified Code(s): I10 - Essential (primary) hypertension (12) COPD (chronic obstructive pulmonary disease): Qualifiers: COPD type: unspecified COPD Qualified Code(s): J44.9 - Chronic obstructive pulmonary disease, unspecified (13) Obesity: (14) KB (acute kidney injury): No obstruction on ultrasound Continue to hold lisinopril Renal function has improved (15) Transaminitis: Secondary to cardiac arrest, with improvement. Reassess liver parameters. (16) Thrombocytopenia: Lower probability of HIT. Request peripheral smear. Recheck platelets. Plan His life partner states that he overall has also been recently tired. Negative rapid flu, COVID-19, unremarkable TSH. Likely secondary to cardiomyopathy/low EF. Attestations Medical Necessity Statement*: Continue supportive measures for reassessment of neurological recovery following cardiac arrest. Goals of care discussion. Critical Care Time: The high probability of a clinically significant, sudden or life threatening deterioration of the patient's neurological, hematologic system(s) required my full and direct attention, intervention and personal management. The critical care time is as shown. This time is in addition to time spent performing any reported procedures but includes the following: x Data and vital sign review and interpretation x Patient assessment, examination and intervention x Documentation x Medication orders and management Critical Care Time (min): 45 Coding Level of Care Code Acute Special Effects Person for [facility] Fwd Diagnoses Acute encephalopathy G93.40 Cardiac arrest with ventricular fibrillation I46.9; I49.01 Ischemic cardiomyopathy I25.5 Leukocytosis D72.829 Atrial fibrillation I48.91 Signs of return of spontaneous circulation ST elevation myocardial infarction (STEMI) I21.3 Neuropathy G62.9 Coronary artery disease I25.10 Coronary Disease-Associated Artery/Lesion type: [place] artery [place] vs. transplanted heart: [place] heart Associated angina: without angina Diabetes E11.65; Z79.4 Diabetes mellitus type: type 2 Diabetes mellitus assisted insulin use: with assisted use Diabetes mellitus complication status: with hyperglycemia Hypertension I10 Hypertension type: essential hypertension COPD (chronic obstructive pulmonary disease) J44.9 COPD type: unspecified COPD Obesity E66.9 KB (acute kidney injury) N17.9 Transaminitis R74.01 Thrombocytopenia D69.6
[2022-05-29 19:25] LABS: LAB Peripheral Smear Sent for Review
[2022-05-29] MEDS: potassium chloride oral liq 20 mEq/15 mL UDC OG-TUBE (19:35)
[2022-05-29] MEDS: acetaminophen 500 mg Tablet PO ×2 (19:48→21:37)
[2022-05-29 20:17] LABS: Glucose Point of Care 166 mg/dL (70-110)
[2022-05-29] MEDS: insulin glargine 100 units/1 mL 10 UNIT SUBCUT (20:28)
--- NOTE | 2022-05-29 21:23 | CTR_ITS ---
PROCEDURE INFORMATION: Exam: CT Head Without Contrast Exam date and time: 05/29/2022 10:07 PM Age: 57 years old Clinical indication: Fever and other: Left eye deviation; Additional info: Left eye deviation, fever, unresponsive TECHNIQUE: Imaging protocol: Computed tomography of the head without contrast. Radiation optimization: All CT scans at this facility use at least one of these dose optimization techniques: automated exposure control; mA and/or kV adjustment per patient size (includes targeted exams where dose is matched to clinical indication); or iterative reconstruction. COMPARISON: CT head wo con* [id number] 05/28/2022 9:28 AM RADIATION DOSE METRICS: Total DLP (mGy-cm): 632.58 FINDINGS: Brain: No focal hemorrhage or midline shift is identified. Ventricles show no change from the prior day. No new stroke. Possible old left parietal CVA. Cerebral ventricles: The ventricles remain quite large for age. This is very similar to the prior day. Paranasal sinuses: The partially assessed sinuses are grossly clear. Mastoid air cells: Visualized mastoid air cells are well aerated. Bones/joints: No displaced skull fracture is noted. Soft tissues: Unremarkable. CT/CT head wo con* [id number] IMPRESSION: 1. No focal hemorrhage or midline shift. No change from prior day. 2. Large ventricles again seen with chronic ventriculomegaly likely. Normal pressure hydrocephalus is possible. Follow with neurology. 3. Severe for age vascular calcification as well.
--- NOTE | 2022-05-29 21:23 | PC.NURSE ---
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 I observed for awhile to see if it changed or moved more center and it didn't; His HR when I got here was 149 afib. he is on an amio gtt at 1mg/min, PRN metoprolol 5mg was given and HR only decreased to 144. pt also had temp of 102. 500mg of tylenol was given for temp. notified of above. additional Tylenol ordered and stat head ST
[2022-05-30] VITALS (60 sets, daily range): BP systolic 92–143; BP diastolic 71–112; PULSE 147–154; RESP 15–22; TEMP 37.9–38.2; O2SAT 91–100
[2022-05-30] MEDS: heparin drip 25,000 UNIT/500 ML PREMIX 23 UNIT IV (00:23)
[2022-05-30 00:44] LABS: Partial Thromboplastin Time 63.1 SECONDS (23.9-36.7)
[2022-05-30] MEDS: chlorhexidine gluconate 4% Btl 118 mL 1 APPLIC TOPICAL (02:09)
[2022-05-30 03:12] LABS: Glucose Point of Care 160 mg/dL (70-110)
[2022-05-30] MEDS: insulin lispro 100 unit/1 mL SUBCUT ×3 (03:12→15:31)
[2022-05-30] MEDS: metoprolol tartrate 1 mg/1 mL SDV 5 mL 5 MG IVP ×2 (03:18→10:14)
[2022-05-30 06:12] LABS: Basophils % 0.1 %; Hematocrit 55.3 % (42.0-52.0); Hemoglobin 17.6 g/dL (11.7-16.6); Lymphocytes # 1.5 10^3/uL (0.8-4.8); Lymphocytes % 8.4 %; Mean Corpuscular HGB Conc 31.8 g/dL (30.0-36.0); Mean Corpuscular Hemoglobin 28.3 pg (28.0-34.0); Mean Corpuscular Volume 88.8 fl (80-94); Mean Platelet Volume 12.4 fL (7.4-10.4); Monocytes # 1.1 10^3/uL (0.2-0.9); Neutrophils % 85.1 %; Nucleated Red Blood Cells % 0 %; Platelet Count 105 10^3/cmm (130-400); Red Blood Count 6.23 10^6/uL (4.1-5.3); Red Cell Distribution Width 14.4 % (12.1-15.1); White Blood Count 18.3 10^3/uL (4.0-10.0)
[2022-05-30 06:28] LABS: Partial Thromboplastin Time 63.7 SECONDS (23.9-36.7)
[2022-05-30 06:35] LABS: Alanine Aminotransferase 66 U/L (0-41); Albumin Level 2.7 g/dL (3.5-5.2); Alkaline Phosphatase 70 U/L (40-130); Anion Gap 13.7 (5-19); Aspartate Amino Transferase 35 U/L (0-40); Blood Urea Nitrogen 53 mg/dL (6-20); Calcium 8.7 mg/dL (8.5-10.5); Carbon Dioxide 19 mmol/L (22-29); Chloride 110 mmol/L (98-107); Creatinine Clr Calc Pharmacy 65.9429; Globulin 3.2 g/dL (1.3-4.6); Glomerular Filtration Rate 48.1 mL/min (90-130); Glucose 180 mg/dL (65-115); Osmolality Calculated 307 mOsm/kg (285-295); Potassium 3.7 mmol/L (3.5-5.1); Sodium 139 mmol/L (136-145); Total Bilirubin 1.5 mg/dL (0.15-1.2); Total Protein 5.9 g/dL (6.6-8.7)
--- NOTE | 2022-05-30 08:11 | P.PN_ITS ---
Subjective Subjective: There has been no change overnight. It seems as though he is even a little less responsive neurologically. He is not responding as much the deep painful stimuli. Still coughs with suctioning. Not spontaneously opening his eyes or moving. His heart rate has been persistently high. He remains on intravenous amiodarone and is getting as needed doses of beta-blockers but his rhythm remains high. He does have a DO NOT RESUSCITATE and do not shock order in place. Apparently, there was some disagreement among the members of the family has to how to proceed. That discussion among them is continuing. We are now about 6 days out from the initial incident with no neurological improvement whatsoever. Vitals/I&O/Wt Last Vital Signs Temp 100.7 F H 05/30/22 02:00 Pulse 149 H 05/30/22 07:00 Resp 15 05/30/22 07:12 BP 101/86 05/30/22 07:00 Pulse Ox 98 05/30/22 07:12 O2 Del Method 05/29/22 19:51 FiO2 30 05/30/22 07:12 05/29/22 05/30/22 05/30/22 22:59 06:59 14:59 Intake Total 906.000 / 1557.477 703.867 / 2261.344 Output Total 850 / 1500 600 / 2100 Balance 56.000 / 57.477 103.867 / 161.344 Weight last 48 hrs Weight 260 lb 1.6 oz Physical Exam Narrative: GENERAL: Unresponsive and obtunded HEENT: Exam within normal limits. NECK: Supple without jugular vein distention. The carotid upstroke is normal without bruits. BACK: Exam normal. LUNGS: Clear. HEART: Regular rate and rhythm. ABDOMEN: Benign without organomegaly or tenderness. EXTREMITIES: No edema. NEUROLOGIC: Obtundation. No purposeful movement. No response to command. Very little response to deep painful stimuli. No spontaneous breathing. SKIN: Unremarkable. Urinary Catheter Management: Tom: Cath Placed During This Visit: yes Reason for Continuing Indwelling Catheter: Accurate Measurement of Urinary O utput in Critically Ill Patients Urinary Catheter Date of Insertion: 05/24/22 Urinary Catheter Time of Insertion: 18:15 Data 05/30/22 06:00 05/30/22 06:00 A&P Assessment and plan (1) Thrombocytopenia: (2) Leukocytosis: (3) Atrial fibrillation: (4) Transaminitis: (5) KB (acute kidney injury): (6) Acute encephalopathy: (7) Ischemic cardiomyopathy: (8) Tobacco abuse: (9) ST elevation myocardial infarction (STEMI): (10) Cardiac arrest with ventricular fibrillation: (11) Coronary artery disease: Qualifiers: Coronary Disease-Associated Artery/Lesion type: [place] artery [place] vs. transplanted heart: [place] heart Associated angina: without angina Qualified Code(s): I25.10 - Atherosclerotic heart disease of [place] coronary artery without angina pectoris (12) Hypertension: Qualifiers: Hypertension type: essential hypertension Qualified Code(s): I10 - Essential (primary) hypertension (13) Hyperlipidemia: Qualifiers: Hyperlipidemia type: mixed hyperlipidemia Qualified Code(s): E78.2 - Mixed hyperlipidemia (14) COPD (chronic obstructive pulmonary disease): Qualifiers: COPD type: unspecified COPD Qualified Code(s): J44.9 - Chronic obstructive pulmonary disease, unspecified (15) Obesity: Plan There has been no meaningful recovery and it does not appear as though there will be any meaningful recovery. Even if there were his underlying coronary art nitza disease prevents any meaningful lifestyle. He has severe underlying coronary disease with an ischemic cardiomyopathy. We are not actively treating the rhythm disturbance since there is a no cardioversion order in place and he is on a maximum dose of medications. We await the family's determination of further care. Attestations Medical Necessity Statement*: Continued hospitalization for out of hospital cardiac arrest. 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 vs. transplanted heart: [place] heart Associated angina: without angina Hypertension I10 Hypertension type: essential hypertension Hyperlipidemia E78.2 Hyperlipidemia type: mixed hyperlipidemia COPD (chronic obstructive pulmonary disease) J44.9 COPD type: unspecified COPD Obesity E66.9
[2022-05-30 08:17] LABS: Glucose Point of Care 173 mg/dL (70-110)
[2022-05-30] MEDS: pantoprazole 40 mg SDV IVP ×2 (08:41→17:12)
[2022-05-30] MEDS: atorvastatin 40 mg Tablet 80 MG PO (08:41)
[2022-05-30] MEDS: aspirin 81 mg Chew Tablet PO (08:41)
[2022-05-30] MEDS: vancomycin 1,500 MG/300 ML PIGGYBACK 200 MG IV (11:22)
[2022-05-30 12:31] LABS: Partial Thromboplastin Time 56.6 SECONDS (23.9-36.7)
--- NOTE | 2022-05-30 12:32 | PC.NURSE ---
PRN metoprolol given due to prn reason heart rate greater than 110 . Heart rate is 150 and regular. Metoprolol had no effect on heart rate. Dropped blood pressure by 15 points systolic[address] Nurse alerted Dr navas to heart rate and ineffectiveness of metoprolol. No new orders received. WIll continue to monitor.
[2022-05-30] MEDS: cefepime 2,000 MG in sodium chloride 0.9% (plus) 50 ML 100 MG IV (15:31)
[2022-05-30 15:32] LABS: Glucose Point of Care 146 mg/dL (70-110)
--- NOTE | 2022-05-30 16:48 | P.PN_ITS ---
Subjective Subjective: No purposeful movements. Eyes open. Blinking. Does not follow directions. Does not follow directions to close his eyes. Medications: Reviewed: Yes Vitals/I&O/Wt Last Vital Signs Temp 100.4 F H 05/30/22 11:30 Pulse 149 H 05/30/22 16:00 Resp 20 H 05/30/22 16:00 BP 96/81 05/30/22 16:00 Pulse Ox 96 05/30/22 16:00 O2 Del Method 05/30/22 16:00 FiO2 30 05/30/22 16:00 05/30/22 05/30/22 05/30/22 06:59 14:59 22:59 Intake Total 703.867 / 2261.344 280.983 / 280.983 Output Total 600 / 2100 325 / 325 375 / 700 Balance 103.867 / 161.344 -44.017 / -44.017 -375 / -419.017 Weight last 48 hrs Weight 117.979 kg Physical Exam Const: GENERAL APPEARANCE: patient mechanically ventilated NUTRITIONAL AP PEARANCE: obese ORIENTATION/CONSCIOUSNESS: Yes Other orientation findings (Unresponsive) Resp: COMMON NORMALS: normal respiratory effort and clear to auscultation bilaterally AUSCULTATION: clear to auscultation bilaterally Cardio: COMMON NORMALS: S1 normal heart sound present, S2 normal heart sound present and No murmurs present (Cardio) RATE: tachycardic RHYTHM: abnormal rhythm irregularly irregular HEART SOUNDS: S1 normal heart sound present and S2 normal heart sound present GI: COMMON NORMALS: Normal to inspection, nondistended, normoactive bowel sounds present and Soft to palpation PALPATION: Yes Soft to palpation Extremity: COMMON NORMALS: no joint enlargement and no pedal edema Neuro: OTHER: Does have pupillary, corneal, gag reflex. Does have doll's eyes. He is laying with eyes open, staring ahead, blinking. Not following directions to close his eyes. Difficult to tell but appears may have menace response. Does not withdraw from pain. Skin: COMMON NORMALS: no rashes or lesions noted GENERAL SKIN EXAM: no rashes or lesions noted Urinary Catheter Management: Tom: Cath Placed During This Visit: yes Reason for Continuing Indwelling Catheter: Accurate Measurement of Urinary Output in Critically Ill Patients Urinary Catheter Date of Insertion: 05/24/22 Urinary Catheter Time of Insertion: 18:15 Data 05/30/22 06:00 05/30/22 06:00 Micro: Microbiology 05/25/22 07:32 Gram Stain - Final Sputum - Endotracheal Tube Aspirate Sputum Culture - Final A&P Assessment and plan (1) Acute encephalopathy: Remains unresponsive. No purposeful movements. Does have pupillary, corneal, gag reflex. Does have doll's eyes. He is laying with eyes open, staring ahead, blinking. Not following directions to close his eyes. Difficult to tell but appears may have menace response. Would seek neurology assessment when they are available tomorrow. EEG without seizure, diffuse slowing, with artifact, without additional prognosticating value. CT head unchanged from September with chronic left parietal infarct, ventricular dilation. No acute abnormality. Continue Keppra empirically. No evidence of generalized seizures. Low-grade fever. Empiric antibiotics as below, by fever may also be central. Overall poor prognosis given severity of underlying CAD, cardiomyopathy. Continue to monitor off sedation currently. Has been observed by multiple family. Family are discussing goals of care. (2) Cardiac arrest with ventricular fibrillation: Continue amiodarone drip. Continue metoprolol as needed GI prophylaxis with PPI. Severe underlying multivessel CAD. Cardiomyopathy. (3) Ischemic cardiomyopathy: Pulmonary edema on x-ray. (4) Leukocytosis: No obvious source of infection. So far no further fevers. Continue empirically cefepime. With worsening renal function, possibly secondary to Comycin. We will stop as otherwise all cultures remain negative. Gallbladder ultrasound obtained, with cholelithiasis without evidence of cholecystitis. Fatty liver. Sputum culture with heavy normal mckinley. Blood culture remains negative. Urine culture without growth. (5) Atrial fibrillation: Continue amiodarone drip. Metoprolol. Additional 20 mEq potassium. (6) Signs of return of spontaneous circulation: (7) ST elevation myocardial infarction (STEMI): Ejection fraction significantly low. Echocardiogram demonstrates EF 10 to 15%. (8) Neuropathy: (9) Coronary artery disease: He was taken to the angiogram suite shortly after arriving in the emergency department. No new findings from last angiogram, three-vessel disease with recommendation for potential bypass surgery should his mental status recover. Qualifiers: Coronary Disease-Associated Artery/Lesion type: [place] artery [place] vs. transplanted heart: [place] heart Associated angina: without angina Q ualified Code(s): I25.10 - Atherosclerotic heart disease of [place] coronary artery without angina pectoris (10) Diabetes: Sliding scale insulin Reduce long-acting insulin, to try to prevent any potential hypoglycemia. Qualifiers: Diabetes mellitus type: type 2 Diabetes mellitus manager long term care insulin use: with nursing home use Diabetes mellitus complication status: with hyperglycemia Qualified Code(s): E11.65 - Type 2 diabetes mellitus with hyperglycemia; Z79.4 - computer terminal operator (current) use of insulin (11) Hypertension: Qualifiers: Hypertension type: essential hypertension Qualified Code(s): I10 - Essential (primary) hypertension (12) COPD (chronic obstructive pulmonary disease): Qualifiers: COPD type: unspecified COPD Qualified Code(s): J44.9 - Chronic obstructive pulmonary disease, unspecified (13) Obesity: (14) KB (acute kidney injury): Orders KB, creatinine up to 1.5. Stop vancomycin. No obstruction on ultrasound Continue to hold lisinopril (15) Transaminitis: Secondary to cardiac arrest, with improvement. Reassess liver parameters. (16) Thrombocytopenia: Lower probability of HIT. Request peripheral smear. Recheck platelets. Plan His life partner states that he overall has also been recently tired. Negative rapid flu, COVID-19, unremarkable TSH. Likely secondary to cardiomyopathy/low EF. Attestations Medical Necessity Statement*: Continue supportive measures for reassessment of neurological recovery following cardiac arrest.? Goals of care discussion. Coding Level of Care Code Acute Parts Classifier for [facility] Diagnoses Acute encephalopathy G93.40 Cardiac arrest with ventricular fibrillation I46.9; I49.01 Ischemic cardiomyopathy I25.5 Leukocytosis D72.829 Atrial fibrillation I48.91 Signs of return of spontaneous circulation ST elevation myocardial infarction (STEMI) I21.3 Neuropathy G62.9 Coronary artery disease I25.10 Coronary Disease-Associated Artery/Lesion type: [place] artery [place] vs. transplanted heart: [place] heart Associated angina: without angina Diabetes E11.65; Z79.4 Diabetes mellitus type: type 2 Diabetes mellitus manager long term care insulin use: with manager long term care use Diabetes mellitus complication status: with hyperglycemia Hypertension I10 Hypertension type: essential hypertension COPD (chronic obstructive pulmonary disease) J44.9 COPD type: unspecified COPD Obesity E66.9 KB (acute kidney injury) N17.9 Transaminitis R74.01 Thrombocytopenia D69.6
[2022-05-30 17:11] LABS: Partial Thromboplastin Time 70.2 SECONDS (23.9-36.7)
[2022-05-30] MEDS: potassium chloride oral liq 20 mEq/15 mL UDC PO (17:12)
--- NOTE | 2022-05-30 17:38 | PC.NURSE ---
SHift SUmmary: Uneventful shift. Patient remains unchanged. Heart rhythm has been SVT in the 150's all day. Does not respond to metoprolol, physician aware and no new orders received. Heparin and amiodarone drips continued. Patient frequently turned. Family has been updated condition. TOtal urine output has been, Urine output has been 850mL. OG tube output has been 350mL. No bowel movement.
[2022-05-30 19:44] LABS: Glucose Point of Care 127 mg/dL (70-110)
[2022-05-30] MEDS: insulin glargine 100 units/1 mL 12 UNIT SUBCUT (20:42)
[2022-05-30] MEDS: heparin drip 25,000 UNIT/500 ML PREMIX 25 UNIT IV (23:37)
[2022-05-31] VITALS (59 sets, daily range): BP systolic 112–165; BP diastolic 69–105; PULSE 66–154; RESP 18–25; TEMP 37.1–37.9; O2SAT 95–98; BMI 41.1
[2022-05-31] MEDS: cefepime 2,000 MG in sodium chloride 0.9% (plus) 50 ML 100 MG IV ×2 (02:36→13:37)
[2022-05-31] MEDS: chlorhexidine gluconate 4% Btl 118 mL 1 APPLIC TOPICAL (02:38)
[2022-05-31] MEDS: insulin lispro 100 unit/1 mL SUBCUT ×2 (04:24→19:55)
[2022-05-31 04:26] LABS: Glucose Point of Care 164 mg/dL (70-110)
[2022-05-31 04:31] LABS: Basophils % 0.1 %; Hematocrit 56.6 % (42.0-52.0); Hemoglobin 18.1 g/dL (11.7-16.6); Lymphocytes # 1.2 10^3/uL (0.8-4.8); Lymphocytes % 5.9 %; Mean Corpuscular Hemoglobin 28.1 pg (28.0-34.0); Mean Corpuscular Volume 87.8 fl (80-94); Mean Platelet Volume 12.4 fL (7.4-10.4); Monocytes # 1.1 10^3/uL (0.2-0.9); Monocytes % 5.2 %; Neutrophils # 18.38 10^3/uL (1.8-7.7); Neutrophils % 88.2 %; Nucleated Red Blood Cells % 0 %; Platelet Count 91 10^3/cmm (130-400); Red Blood Count 6.45 10^6/uL (4.1-5.3); Red Cell Distribution Width 14.9 % (12.1-15.1); White Blood Count 20.9 10^3/uL (4.0-10.0)
[2022-05-31 04:43] LABS: Partial Thromboplastin Time 69.6 SECONDS (23.9-36.7)
[2022-05-31 04:55] LABS: Alanine Aminotransferase 49 U/L (0-41); Albumin Level 2.7 g/dL (3.5-5.2); Alkaline Phosphatase 65 U/L (40-130); Anion Gap 15.8 (5-19); Aspartate Amino Transferase 23 U/L (0-40); Blood Urea Nitrogen 46 mg/dL (6-20); Calcium 8.5 mg/dL (8.5-10.5); Carbon Dioxide 17 mmol/L (22-29); Chloride 111 mmol/L (98-107); Globulin 3.1 g/dL (1.3-4.6); Glomerular Filtration Rate 52.1 mL/min (90-130); Glucose 175 mg/dL (65-115); Osmolality Calculated 306 mOsm/kg (285-295); Potassium 3.8 mmol/L (3.5-5.1); Sodium 140 mmol/L (136-145); Total Bilirubin 1.3 mg/dL (0.15-1.2); Total Protein 5.8 g/dL (6.6-8.7)
[2022-05-31] MEDS: ipratropium-albuterol 3 mL Neb INHALATION (07:52)
--- NOTE | 2022-05-31 07:52 | PM.PN ---
Subjective Subjective: Patient is basically unchanged this morning. His mental status is the same. Obtunded with some spontaneous movements of eye blinking. No response to commands. Very little response to deep pain stimuli. Remains on the ventilator. He has gone into sinus rhythm with a heart rate of 72 bpm today. Blood pressures have been stable. Vitals/I&O/Wt Last Vital Signs Temp 100.3 F H 05/31/22 05:46 Pulse 153 H 05/31/22 05:46 Resp 23 H 05/31/22 07:40 BP 112/94 05/31/22 05:46 Pulse Ox 98 05/31/22 07:40 O2 Del Method 05/31/22 05:46 FiO2 30 05/31/22 07:40 05/30/22 05/31/22 05/31/22 22:59 06:59 14:59 Intake Total 1247.017 / 1528.000 210 / 1738.000 Output Total 1050 / 1375 175 / 1550 Balance 197.017 / 153.000 35 / 188.000 Weight last 48 hrs Weight 263 lb Physical Exam Narrative: GENERAL: In general he is unchanged neurologically HEENT: Exam within normal limits. NECK: Supple without jugular vein distention. The carotid upstroke is normal without bruits. BACK: Exam normal. LUNGS: Clear. HEART: Regular rate and rhythm. ABDOMEN: Benign without organomegaly or tenderness. EXTREMITIES: No edema. NEUROLOGIC: Exam reveals obtundation, occasional spontaneous movements, no response to verbal stimuli or commands. SKIN: Unremarkable. Urinary Catheter Management: Tom: Cath Placed During This Visit: yes Reason for Continuing Indwelling Catheter: Accurate Measurement of Urinary Output in Critically Ill Patients Urinary Catheter Date of Insertion: 05/24/22 Urinary Catheter Time of Insertion: 18:15 Data 05/31/22 04:16 05/31/22 04:16 Micro: Microbiology 05/25/22 07:32 Gram Stain - Final Sputum - Endotracheal Tube Aspirate Sputum Culture - Final A&P Assessment and plan (1) Thrombocytopenia: (2) Leukocytosis: (3) Atrial fibrillation: (4) Transaminitis: (5) KB (acute kidney injury): (6) Acute encephalopathy: (7) Ischemic cardiomyopathy: (8) Tobacco abuse: (9) Cardiac arrest with ventricular fibrillation: (10) Coronary artery disease: Qualifiers: Coronary Disease-Associated Artery/Lesion type: [place] artery [place] vs. transplanted heart: [place] heart Associated angina: without angina Qualified Code(s): I25.10 - Atherosclerotic heart disease of [place] coronary artery without angina pectoris (11) Diabetes: Qualifiers: Diabetes mellitus type: type 2 Diabetes mellitus joint terminal attack controller insulin use: with joint terminal attack controller use Diabetes mellitus complication status: with hyperglycemia Qualified Code(s): E11.65 - Type 2 diabetes mellitus with hyperglycemia; Z79.4 - penitentiary (current) use of insulin (12) Hypertension: Qualifiers: Hypertension type: essential hypertension Qualified Code(s): I10 - Essential (primary) hypertension (13) Hyperlipidemia: Qualifiers: Hyperlipidemia type: mixed hyperlipidemia Qualified Code(s): E78.2 - Mixed hyperlipidemia (14) COPD (chronic obstructive pulmonary disease): Qualifiers: COPD type: unspecified COPD Qualified Code(s): J44.9 - Chronic obstructive pulmonary disease, unspecified (15) Obesity: Plan I still have not seen the EEG report. The nurses report that the family was not here yesterday. Apparently his significant other was emotionally not able to come in. There was some disagreement among the family members the other day as to how to proceed. That situation has not been resolved. The nurses tell me neurology is to see him today. Otherwise, things have not changed. Attestations Medical Necessity Statement*: Continued hospitalization for management of an out of hospital arrest. Coding Level of Care Code Established Pt Acute Ob Nurse for Chg Fwd Patient Type Established History Detailed Exam Detailed Medical Decision Making Moderate Complexity Diagnoses Thrombocytopenia D69.6 Leukocytosis D72.829 Atrial fibrillation I48.91 Transaminitis R74.01 KB (acute kidney injury) N17.9 Acute encephalopathy G93.40 Ischemic cardiomyopathy I25.5 Tobacco abuse Z72.0 Cardiac arrest with ventricular fibrillation I46.9; I49.01 Coronary artery disease I25.10 Coronary Disease-Associated Artery/Lesion type: [place] artery [place] vs. transplanted heart: [place] heart Associated angina: without angina Diabetes E11.65; Z79.4 Diabetes mellitus type: type 2 Diabetes mellitus joint terminal attack controller insulin use: with joint terminal attack controller use Diabetes mellitus complication status: with hyperglycemia Hypertension I10 Hypertension type: essential hypertension Hyperlipidemia E78.2 Hyperlipidemia type: mixed hyperlipidemia COPD (chronic obstructive pulmonary disease) J44.9 COPD type: unspecified COPD Obesity E66.9
[2022-05-31 08:04] LABS: Glucose Point of Care 135 mg/dL (70-110)
[2022-05-31] MEDS: pantoprazole 40 mg SDV IVP ×2 (09:58→17:21)
[2022-05-31] MEDS: aspirin 81 mg Chew Tablet PO (09:58)
[2022-05-31] MEDS: atorvastatin 40 mg Tablet 80 MG PO (09:58)
--- NOTE | 2022-05-31 10:16 | PC.CHAP ---
Pastoral Care Encounter/Spiritual Assessment Type of Contact [] Declined concert manager visit [] Patient/Family/Request visit [] Outpatient visit [] Follow-up visit [] Physician referral [] Code/Alert [x] Routine visit [] Staff referral [] Actively dying [x] Patient sleeping [] Family support [] [] Out of room [] Palliative care [] [] Receiving care in room [] Pre-surgical visit [] Trauma [] Long length of stay [x] ICU visit [x] Other: vent.. PT unchanged.. no family present Relational/Emotional Strength [] Patient feels connected with others/family/visitors/staff [] Distress [] Loneliness/isolation [] Abandonment Spirituality of Patient [] Person of Rhianna [] Attends Taoism of their Rhianna [] Believes in Prayer [] Reads Bible or Jain materials [] There are Spiritual issues to be addressed Paper Production Engineer Interventions [x] Prayer [] Active listening [] Non-anxious presence [] Spiritual/emotional support [] Crisis/trauma care [] Spiritual counseling [] Bereavement support [] Provided bereavement packet [] Provided Bible/devotional materials [] Provided toy/stuffed animal, coloring book to patient or family member [] Provided Communion [] Anointing/[place] [] Salvation [x] Completed spiritual assessment [] Other: Impact on Illness or Injury [] Angry [] Fearful [] Anxious [] Often cries [] Exhaustion [] Unable to work [] Unable to attend cheondoism [] Unable to walk/stand [] Unable to read [] Unable to drive [] Unable to eat/drink [] Unable to sleep [] Unable to be with family [] Patient intubated [] Other: Summary Time spent with patient
[2022-05-31] MEDS: vancomycin 1,500 MG/300 ML PIGGYBACK 200 MG IV (11:46)
[2022-05-31 12:40] LABS: Add Urine Microscopic? YES; Bilirubin Urine Neg (Negative); Blood Urine 2+ (Negative); Glucose Urine UA 4+ (Normal); Ketones Urine 1+ (Negative); Leukocyte Esterase Urine Negative (Negative); Nitrate Urine Negative (Negative); Protein Urine 1+ (Negative); Urine Appearance Clear (CLEAR); Urine Color Yellow (Yellow); Urobilinogen Urine Norm (Negative); pH Urine 5 (5-7)
[2022-05-31 12:41] LABS: Add Urine Culture? No; Bacteria Urine 1+ /hpf; Mucus Urine 1+ /hpf; RBC Urine 0-4 /hpf (0-2); WBC Urine 0-4 /hpf (0-5)
--- NOTE | 2022-05-31 13:22 | PC.SOCIAL ---
IMM Update Pt is intubated. IMM left a bedside for family to review. Pt is not expected to d/c in the next 24-48hrs.
[2022-05-31 14:56] LABS: Glucose Point of Care 137 mg/dL (70-110)
--- NOTE | 2022-05-31 15:08 | PM.PN ---
Subjective Subjective: Hospital course, labs appreciated. Examination patient lying comfortably in bed, not on sedation currently on ventilator with FiO2 30%, tidal volume 500 PEEP of 5 saturating more than 96%. During examination mode of ventilator changed to CPAP/spontaneous on which patient did not have any apneic events and continue to maintain oxygen supplementation at acceptable level. On examination patient lying with eyes closed. Opens eyes after ventilator changing and an attempt to stop breathing by himself, not following commands, not tracking with eyes while being in the room. Pupils seems to be equally reactive. Not moving limbs by himself currently. Not following commands. Documented urine output of around 1700 last 24 hours with net negative of around 200 cc. Has remained hemodynamically stable. Currently on amiodarone drip at 1 along with heparin drip. Heart rate better with sinus rhythm running in 70s. T-max last 24 hours continuous around 100.7 Fahrenheit. Medications: Reviewed: Yes Vitals/I&O/Wt Last Vital Signs Temp 100.1 F H 05/31/22 07:30 Pulse 67 05/31/22 13:00 Resp 21 H 05/31/22 13:20 BP 128/90 05/31/22 13:00 Pulse Ox 98 05/31/22 13:20 O2 Del Method 05/31/22 13:00 FiO2 30 05/31/22 13:20 05/31/22 05/31/22 05/31/22 06:59 14:59 22:59 Intake Total 210 / 1738.000 50 / 50 Output Total 175 / 1550 475 / 475 Balance 35 / 188.000 -425 / -425 Weight last 48 hrs Weight 119.295 kg Physical Exam Narrative: General exam demonstrates an unresponsive patient, wakes up and open eyes when finding difficulty to breathe on ventilator on switching the mode, not following commands or tracking in the room, Giurgius flex present with cough HEENT: Pupils equally round. Gaze not quite conjugate, more with right esotropia. Endotracheal tube and orogastric tube noted Neck supple no lymphadenopathy thyromegaly Cardiovascular regular rate and rhythm, pansystolic murmur at apex Lungs clear no wheezing or crackles Abdomen is soft obese nontender positive bowel sounds Extremities no cyanosis clubbing or edema, cap refill brisk Skin no rash Neuro: Pupillary reflexes present. Urinary Catheter Management: Tom: Cath Placed During This Visit: yes Reason for Continuing Indwelling Catheter: Accurate Measurement of Urinary Output in Critically Ill Patients Urinary Catheter Date of Insertion: 05/24/22 Urinary Catheter Time of Insertion: 18:15 Data 05/31/22 04:16 05/31/22 04:16 Micro: Microbiology 05/31/22 11:16 Blood Culture - Preliminary Blood SPECIMEN COLLECTED 05/31/22 11:10 Blood Culture - Preliminary Blood SPECIMEN COLLECTED 05/25/22 07:32 Gram Stain - Final Sputum - Endotracheal Tube Aspirate Sputum Culture - Final A&P Assessment and plan (1) Acute encephalopathy: Could be secondary to vegetative state in a patient with prolonged CPR when found unresponsive for unknown amount of time. EEG done shows no seizures but diffuse slowing with artifacts without additional prognosticating value. Hold off on any further Keppra for now. No evidence seizures while being in the hospital. Found to have low grade fever which could be related to overall poor recommendation versus central fevers versus infectious in nature. Check ammonia levels, vitamin B12, folate level. TSH and A1c recently checked. Will consult neurology for further prognostication and possible transition to hospice if patient found to be in vegetative state. (2) Cardiac arrest with ventricular fibrillation: Appreciate cardiology recommendations. Found to have severe multivessel disease. Also found to have ischemic cardiomyopathy with EF of around 10 to 15%. Heart rate better. Continue amiodarone drip as per cardiology recommendations. For now on metoprolol as needed. If continues to remain stable hemodynamically we will transition to oral metoprolol within next 24 hours. (3) Ischemic cardiomyopathy: Echocardiogram done during this hospitalization shows an EF of 10 to 15% with global LV hypokinesia. Keep mean arterial pressure over 65. Metoprolol as above. Hold off on enalapril for now given KB. (4) Leukocytosis: Persistent leukocytosis. Also having recurrent low-grade fevers now. Could be set still but cannot rule out infection. Continue with cefepime. Start on vancomycin. Check blood culture, urinalysis, repeat sputum culture. Work-up earlier in the admission showed as followed? Gallbladder ultrasound obtained, with cholelithiasis without evidence of cholecystitis. Fatty liver. Sputum culture with heavy normal mckinley. Blood culture remains negative. Urine culture without growth. (5) Atrial fibrillation: As above. Appreciate cardiology recommendations. (6) Signs of return of spontaneous circulation: (7) ST elevation myocardial infarction (STEMI): With history of underlying severe triple-vessel disease. Continue with aspirin, statin. Appreciate recent lipid panel and A1c within last 6 months. Continue with heparin drip. (8) Neuropathy: (9) Coronary artery disease: Qualifiers: Associated angina: without angina Coronary Disease-Associated Artery/Lesion type: [place] artery [place] vs. transplanted heart: [place] heart Qualified Code(s): I25.10 - Atherosclerotic heart disease of [place] coronary artery without angina pectoris (10) Diabetes: Insulin sliding scale every 6 hourly moderate dose protocol. Lantus 12 units at bedtime. Monitor for hypoglycemia. Qualifiers: Diabetes mellitus complication status: with hyperglycemia Diabetes mellitus residential insulin use: with medical terminologist use Diabetes mellitus type: type 2 Qualified Code(s): E11.65 - Type 2 diabetes mellitus with hyperglycemia; Z79.4 - USP (current) use of insulin (11) Hypertension: Goal blood pressure less than 140/90 mmHg with mean over 65. Qualifiers: Hypertension type: essential hypertension Qualified Code(s): I10 - Essential (primary) hypertension (12) COPD (chronic obstructive pulmonary disease): Qualifiers: COPD type: unspecified COPD Qualified Code(s): J44.9 - Chronic obstructive pulmonary disease, unspecified (13) Obesity: (14) KB (acute kidney injury): Strict input output charting. Creatinine down to 1.4. No obstruction on ultrasound Medical reconciliation done for nephrotoxic drugs. Continue to monitor BMP daily. (15) Transaminitis: Secondary to cardiac arrest, with improvement. Reassess liver parameters. (16) Thrombocytopenia: Most likely post CPR status. Plan His life partner states that he overall has also been recently tired. Negative rapid flu, COVID-19, unremarkable TSH. Likely secondary to cardiomyopathy/low EF. Will consult neurology for further prognostication and possibility of vegetative state. Infectious work-up as above. Continue with low ventilator support with spontaneous breathing to watch for apneic events. Normal saline at 75 cc/h for liters. Check vitamin B12, folate, iron panel, ammonia. CODE STATUS: DNR/DNI. NPO. Depending on mental status within next 24 hours if patient remains on ventilator we will plan to start tube feeds. Protonix for PUD prophylaxis Heparin drip will suffice for DVT prophylaxis. Attestations Medical Necessity Statement*: Requires further hospitalization for assessment of mental status in a patient with post CPR secondary to ST elevation NH in setting of baseline severe triple-vessel disease while patient remain ventilator dependent Critical Care Time: The high probability of a clinically significant, sudden or life threatening deterioration of the patient's [cardiac, renal, neurological, goals of care discussion] system(s) required my full and direct attention, intervention and personal management. The critical care time is as shown. This time is in addition to time spent performing any reported procedures but includes the following: [x] Data and vital sign review and interpretation [x] Patient assessment, examination and intervention [x] Documentation [x] Medication orders and management Critical Care Time (min): 80 Coding Level of Care Code Acute Administrative Court Justice for g Fwd Diagnoses Acute encephalopathy G93.40 Cardiac arrest with ventricular fibrillation I46.9; I49.01 Ischemic cardiomyopathy I25.5 Leukocytosis D72.829 Atrial fibrillation I48.91 Signs of return of spontaneous circulation ST elevation myocardial infarction (STEMI) I21.3 Neuropathy G62.9 Coronary artery disease I25.10 Associated angina: without angina Coronary Disease-Associated Artery/Lesion type: [place] artery [place] vs. transplanted heart: [place] heart Diabetes E11.65; Z79.4 Diabetes mellitus complication status: with hyperglycemia Diabetes mellitus residential insulin use: with residential use Diabetes mellitus type: type 2 Hypertension I10 Hypertension type: essential hypertension COPD (chronic obstructive pulmonary disease) J44.9 COPD type: unspecified COPD Obesity E66.9 KB (acute kidney injury) N17.9 Transaminitis R74.01 Thrombocytopenia D69.6
[2022-05-31] MEDS: sodium chloride 0.9% 1,000 ML 75 ML IV (15:30)
[2022-05-31 15:50] LABS: Iron 30 ug/dL (59-158); Percent Saturation 18.8 % (20-50); Total Iron Binding Capacity 159 mcg/dl; Unsaturated Iron Binding 129 ug/dL (112-347)
[2022-05-31 16:06] LABS: Folate Level 8.5 ng/mL (4.5-32.2); Vitamin B12 833 pg/mL (232-1245)
[2022-05-31 16:50] LABS: Partial Thromboplastin Time 64.7 SECONDS (23.9-36.7)
--- NOTE | 2022-05-31 18:03 | PC.NURSE ---
Shift Summary...... Uneventful shift. Patient remains unresponsive to pain. Menace reflex when sweeping hand in front of face is present, but not always. Patient will cough when inline suctioning is performed. Heart rate has been 70bpm throughout the shift. Total urine output has been 975.
--- NOTE | 2022-05-31 18:38 | P.CONIM_ITS ---
Providers/Reason For Consult Consulting Physician/Specialty*: Dr. Fleming Reason for Consult*: Post anoxic encephalopathy Attending Physician: Brannon Trevino MD Primary Care Provider: Alicia De MD History of Present Illness History of Present Illness Adolfo Barton is a 57 year old male with a history of diabetes, COPD and hypertension. He was brought to our emergency department 05/24/2022. He collapsed in the bathroom and was found down by EMS, apneic, unresponsive and pulseless. He was not being treated with CPR when EMS arrived. He was defibrillated 3 times and received 4 doses of epinephrine and amiodarone and intubated. He had ST elevation in the anterior leads and a STEMI was called before he arrived. He was taken to the [facility] but Dr. Sagastume reviewed old cath films and discovered that the patient had an LAD occlusion. His right coronary artery was also occluded. Dr. Sagastume thought that the EKG L abnormalities were due to loss of collateral flow in the LAD collaterals because of cardiac arrest. Over the course of hospitalization he has not woken up but he has had vegetative eye-opening activity that was evident on his EEG on 05/27. He had a d iffusely slow background that was mainly artifact related from having an EEG in ICU but no sign of seizure activity. I am consulted to evaluate his neurologic state. His blood pressure has been stable. He is still on FiO2 of 30% and tidal volume of 500 with a PEEP of 5. He did not have any apneic events on CPAP. He has not been following commands. He has been running low-grade fever. Review of Systems General: Reports: ROS unobtainable due to mental status Medications/Allergies Home Medications Medication Instructions Recorded Confirmed Last Taken Type aspirin 81 mg tablet,delayed 81 mg PO ONCE 07/04/19 05/25/22 05/24/22 08:00 History release (Adult Low Dose Aspirin) albuterol sulfate 90 mcg/actuation 2 puff inhalation QID PRN 03/04/21 05/25/22 09/27/21 10:00 Rx aerosol inhaler (ProAir HFA) shortness of breath or wheezing #8.5 grams nitroglycerin 0.4 mg sublingual See Rx Instructions .Route 09/25/21 05/25/2204/10 10:00 Rx tablet .COMPLEX #25 tabs insulin human U-100 NPH-regulr See Rx Instructions .Route 12/17/21 05/25/22 Unknown Rx 70-30 mix 100 unit/mL subcutaneous .COMPLEX #50 mL susp (Humulin 70/30 U-100 Insulin) empagliflozin 25 mg tablet See Rx Instructions .Route 05/12/22 05/25/22 05/24/22 08:00 Rx (Jardiance) .COMPLEX #60 tabs isosorbide mononitrate 120 mg See Rx Instructions .Route 05/12/22 05/25/22 05/24/22 08:00 Rx tablet,extended release 24 hr .COMPLEX #90 tabs lisinopril 10 mg tablet 20 mg PO DAILY #180 tabs 05/12/22 05/25/22 05/24/22 08:00 Rx pregabalin 75 mg capsule 75 mg PO BID #60 caps 05/12/22 05/25/22 05/24/22 08:00 Rx rosuvastatin 20 mg tablet See Rx Instructions .Route 05/12/22 05/25/22 05/24/22 08:00 Rx .COMPLEX #90 tabs carvedilol 12.5 mg tablet 12.5 mg PO BID 05/25/22 05/25/22 05/24/22 08:00 History Allergies Allergy/AdvReac Type Severity Reaction Status Date / Time metformin Allergy Unknown Unknown Verified 05/25/22 02:42 bee venom protein (honey bee) Allergy ALGY-Difficulty Verified 05/12/22 09:57 Breathing Current Medications Generic Name Dose Route Start Last Admin Trade Name Freq PRN Reason Stop Dose Admin Acetaminophen 500 mg 05/24/22 19:35 05/29/22 19:48 Acetaminophen 500 Mg Tablet PO 500 mg Q4H PRN Administration fever Albuterol/Ipratropium 3 ml 05/24/22 19:35 05/31/22 07:52 Ipratropium-Albuterol 3 Ml Neb INHALATION 3 ml Q6H PRN Administration SHORTNESS OF BREATH Aspirin 81 mg 05/28/22 09:00 05/31/22 09:58 Aspirin 81 Mg Chew Tablet PO 81 mg DAILY SUE Administration Atorvastatin Calcium 80 mg 05/25/22 09:00 05/31/22 09:58 Atorvastatin 40 Mg Tablet PO 80 mg DAILY SUE Administration Chlorhexidine Gluconate 1 applic 05/26/22 01:15 05/31/22 02:38 Chlorhexidine Gluconate 4% Btl 118 Ml TOPICAL 1 applic Q24H SUE Administration Heparin Sodium (Porcine) 0 unit 05/25/22 11:13 05/28/22 06:33 Heparin 5,000 Unit/Ml Inj 1 Ml IV 2,200 unit PRN PRN Administration Heparin weight-base protocol Protocol Heparin Sodium/Sodium Chloride 25,000 unit in 500 mls @ 0 mls/hr 05/25/22 11:15 05/30/22 23:37 Heparin Drip IV 11.65 unit/kg/hr .Q0M SUE 25 mls/hr Administration Protocol Per Protocol Amiodarone HCl 900 mg/ 518 mls @ 0 mls/hr 05/25/22 14:15 05/31/22 16:32 Dextrose/ IV Miscellaneous IV 1 mg/min Supplies .Q0M SUE 34.53 mls/hr Administration Protocol Per Protocol Cefepime HCl 2,000 mg/ Sodium 50 mls @ 100 mls/hr 05/28/22 12:45 05/31/22 14:50 Chloride IV Infused Q12H SUE Infusion Protocol Vancomycin/PEG/NADA/Lysine/Water 1,500 mg in 300 mls @ 200 mls/hr 05/31/22 12:00 05/31/22 11:46 Vancocin IV 200 mls/hr Q18H SUE Administration Sodium Chloride 1,000 mls @ 75 mls/hr 05/31/22 15:15 05/31/22 15:30 Sodium Chloride 0.9% IV 06/01/22 04:34 75 mls/hr .[id number] SUE Administration Insulin Glargine 12 unit 05/30/22 21:00 05/30/22 20:42 Insulin Glargine 100 Units/1 Ml SUBCUT 12 unit BEDTIME SUE Administration Insulin Human Lispro 0 unit 05/25/22 14:30 05/31/22 14:54 Insulin Lispro 100 Unit/1 Ml SUBCUT Not Given Q6H [facility] Protocol Metoprolol Tartrate 5 mg 05/26/22 08:33 05/30/22 10:14 Metoprolol Tartrate 1 Mg/1 Ml Sdv 5 Ml IVP 5 mg Q4H PRN Administration HR greater than 110bpm Pantoprazole Sodium 40 mg 05/25/22 09:00 05/31/22 17:21 Pantoprazole 40 Mg Sdv IVP 40 mg BID SUE Administration PFSH Acute PFSH: Medical History COPD (chronic obstructive pulmonary disease) Coronary artery disease CVA (cerebral vascular accident) Diabetes Hyperlipidemia Hypertension Ischemic cardiomyopathy Myocardial infarct Obesity Skin rash Tobacco abuse Family History Other CAD (coronary artery disease) Cancer Diabetes Hypertension Myocardial infarction Social History Smoking and tobacco status: current every day smoker cigarettes Packs smoked per day: 2 Years cigarettes smoked: 45 [ Other cigarette details: 1pack per 2 days currently] Alcohol intake: former Marital status: Life Partner service: No Current occupational status: disabled Current gender identity: Male Special dave needs: No Vitals/I&O/Wt Last Vital Signs Temp 99.7 F H 05/31/22 17:30 Pulse 69 05/31/22 18:00 Resp 21 H 05/31/22 17:30 BP 147/95 05/31/22 18:00 Pulse Ox 97 05/31/22 18:00 O2 Del Method 05/31/22 18:00 FiO2 30 05/31/22 18:00 05/31/22 05/31/22 05/31/22 06:59 14:59 22:59 Intake Total 210 / 1738.000 568 / 568 Output Total 175 / 1550 475 / 475 500 / 975 Balance 35 / 188.000 93 / 93 -500 / -407 Weight last 48 hrs Weight 263 lb Physical Exam Narrative: General: Obese middle-aged man in ICU. He is intubated on pressure support with a normal respiratory pattern. Mental status exam: He has spontaneous eye opening, repetitive blinking and random nonperiodic eye movements in the horizontal direction. He exhibits minimal response to deep pain. With sustained pressure on the nailbed on the right or the left he has an increase in respiratory rate and increase in rate of blinking. There was no response to verbal stimulation. There was no response to command. After repetitively alerting him by stimulating the brow with a noxious stimulus on each side, sustained deep pain in the nailbeds, he did not respond to command. Over the course of my exam there was little variation in his random eye movements, occasional eye opening or repetitive blinking. Deep tendon reflexes absent throughout. Right toe possibly upgoing. Left toe upgoing. Sensory/motor: No withdrawal to pain. Triple flexion in the great toes and minimal triple flexion at the ankle but no evidence of withdrawal. Cardiac: S1 and S2 normal without murmur or gallop. Urinary Catheter Management: Tom: Cath Placed During This Visit: yes Reason for Continuing Indwelling Catheter: Accurate Measurement of Urinary Output in Critically Ill Patients Urinary Catheter Date of Insertion: 05/24/22 Urinary Catheter Time of Insertion: 18:15 Data 05/31/22 04:16 05/31/22 04:16 Micro: Microbiology 05/26/22 18:00 Blood Culture - Final Blood NO GROWTH AFTER 5 DAYS 05/26/22 17:45 Blood Culture - Final Blood NO GROWTH AFTER 5 DAYS 05/31/22 11:16 Blood Culture - Preliminary Blood SPECIMEN COLLECTED 05/31/22 11:10 Blood Culture - Preliminary Blood SPECIMEN COLLECTED 05/25/22 07:32 Gram Stain - Final Sputum - Endotracheal Tube Aspirate Sputum Culture - Final A&P Assessment and plan (1) Anoxic encephalopathy: 57-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 He is now 7 days out from cardiorespiratory arrest. His neurologic findings are consistent with persistent vegetative state and at 7 days from anoxic insult, his prognosis is poor. He has multiple factors against him including profound coronary disease underlying and he made a decision against reperfusion by surgery when he was still capable of making that decision. At this point I would recommend continuing withdrawal of support and plan not to advance in the event of deter ioration. I attempted to call his life partner, Dinorah Brooks, but she was not able to answer the phone. The nurses have a good relationship with the family and report that his life partner has a pretty clear understanding of his poor prognosis and is prepared to place him on comfort care. I am in agreement that that is the appropriate approach at this time. (2) Cardiac arrest with ventricular fibrillation: Prolonged cardiac arrest (3) Ischemic cardiomyopathy: Profound ischemic cardiomyopathy with ejection fraction of 10 to 15% due to global ventricular hypokinesis and profound coronary disease. (4) COPD (chronic obstructive pulmonary disease): Qualifiers: COPD type: unspecified COPD Qualified Code(s): J44.9 - Chronic obstructive pulmonary disease, unspecified (5) Diabetes: Qualifiers: Diabetes mellitus complication status: with hyperglycemia Diabetes mellitus player services representative insulin use: with long-term use Diabetes mellitus type: type 2 Qualified Code(s): E11.65 - Type 2 diabetes mellitus with hyperglycemia; Z79.4 - stationary steam engineer (current) use of insulin (6) Coronary artery disease: Qualifiers: Associated angina: without angina Coronary Disease-Associated Artery/Lesion type: [place] artery [place] vs. transplanted heart: [place] heart Qualified Code(s): I25.10 - Atherosclerotic heart disease of [place] coronary artery without angina pectoris Consult Attestations Medical Necessity Statement: Cardiac arrest Time Spent in Patient Care: 60 minutes Coding Level of Care Code Acute Client Renewal Specialist for [facility] Diagnoses Anoxic encephalopathy G93.1 Cardiac arrest with ventricular fibrillation I46.9; I49.01 Ischemic cardiomyopathy I25.5 COPD (chronic obstructive pulmonary disease) J44.9 COPD type: unspecified COPD Diabetes E11.65; Z79.4 Diabetes mellitus complication status: with hyperglycemia Diabetes mellitus player services representative insulin use: with player services representative use Diabetes mellitus type: type 2 Coronary artery disease I25.10 Associated angina: without angina Coronary Disease-Associated Artery/Lesion type: [place] artery [place] vs. transplanted heart: [place] heart
[2022-05-31] MEDS: heparin drip 25,000 UNIT/500 ML PREMIX 25 UNIT IV (19:46)
[2022-05-31 19:53] LABS: Glucose Point of Care 143 mg/dL (70-110)
[2022-05-31] MEDS: insulin glargine 100 units/1 mL 12 UNIT SUBCUT (22:08)
[2022-06-01] VITALS (32 sets, daily range): BP systolic 149–187; BP diastolic 80–111; PULSE 63–100; RESP 16–32; TEMP 36.9–37.3; O2SAT 91–99; BMI 40.9
[2022-06-01] MEDS: cefepime 2,000 MG in sodium chloride 0.9% (plus) 50 ML 100 MG IV (00:30)
[2022-06-01 03:21] LABS: Glucose Point of Care 130 mg/dL (70-110)
[2022-06-01] MEDS: chlorhexidine gluconate 4% Btl 118 mL 1 APPLIC TOPICAL (03:54)
[2022-06-01] MEDS: vancomycin 1,500 MG/300 ML PIGGYBACK 200 MG IV (05:43)
--- NOTE | 2022-06-01 06:10 | PC.NURSE ---
Shift Summary: Pt remains unresponsive. Gag, Cough and Corneal reflexes intact. Pt has tolerated q 2 hour turns and a full bath. Cardiac Rhythm has remained Sinus throughout shift. BUE are exhibiting increasing edema, with loss of two peripheral IVs, utilizing the ultrasound to gain sufficient access. BP cuff has been moved to RLE, last taken measurement 174/96. notified this am that lab was unable to attain morning labs despite multiple attempts. MD has approved foregoing additional attempts, will maintain heparin infusion at 25mL/hr, which has been therapeutic for multiple serial coagulation studies. Significant other states via phone call that she will attempt to get to the hospital to discuss withdrawal of care. Note Complete
--- NOTE | 2022-06-01 07:07 | P.PN_ITS ---
Subjective Subjective: There has been no change in his condition. Dr. Short saw him yesterday. Her input is appreciated. I have not seen any family around or his girlfriend for several days now. Remains in sinus rhythm. Vitals/I&O/Wt Last Vital Signs Temp 98.9 F 06/01/22 04:00 Pulse 65 06/01/22 06:00 Resp 32 H 06/01/22 06:15 BP 174/96 06/01/22 06:00 Pulse Ox 92 06/01/22 06:15 O2 Del Method 06/01/22 04:00 FiO2 30 06/01/22 06:15 05/31/22 06/01/22 06/01/22 22:59 06:59 14:59 Intake Total 800 / 1368 1050 / 2418 Output Total 1700 / 2175 750 / 2925 Balance -900 / -807 300 / -507 Weight last 48 hrs Weight 261 lb 11.2 oz Weight 263 lb Physical Exam Narrative: GENERAL: In general he is unchanged neurologically HEENT: Exam within normal limits. NECK: Supple without jugular vein distention. The carotid upstroke is normal without bruits. BACK: Exam normal. LUNGS: Clear. HEART: Regular rate and rhythm. ABDOMEN: Benign without organomegaly or tenderness. EXTREMITIES: No edema. NEUROLOGIC: Spontaneous eye blinking, minimal pain to deep stimuli, no response to commands. SKIN: Unremarkable. Urinary Catheter Management: Tom: Cath Placed During This Visit: yes Reason for Continuing Indwelling Catheter: Accurate Measurement of Urinary Output in Critically Ill Patients Urinary Catheter Date of Insertion: 05/24/22 Urinary Catheter Time of Insertion: 18:15 Data 05/31/22 04:16 05/31/22 04:16 Micro: Microbiology 05/26/22 18:00 Blood Culture - Final Blood NO GROWTH AFTER 5 DAYS 05/26/22 17:45 Blood Culture - Final Blood NO GROWTH AFTER 5 DAYS 05/31/22 11:16 Blood Culture - Preliminary Blood SPECIMEN COLLECTED 05/31/22 11:10 Blood Culture - Preliminary Blood SPECIMEN COLLECTED A&P Assessment and plan (1) Anoxic encephalopathy: (2) Thrombocytopenia: (3) Leukocytosis: (4) Atrial fibrillation: (5) Transaminitis: (6) KB (acute kidney injury): (7) Ischemic cardiomyopathy: (8) Cardiac arrest with ventricular fibrillation: (9) Coronary artery disease: Qualifiers: Coronary Disease-Associated Artery/Lesion type: [place] artery [place] vs. transplanted heart: [place] heart Associated angina: without angina Quali fied Code(s): I25.10 - Atherosclerotic heart disease of [place] coronary artery without angina pectoris (10) Diabetes: Qualifiers: Diabetes mellitus type: type 2 Diabetes mellitus termite renewal inspector insulin use: with shelter use Diabetes mellitus complication status: with hyperglycemia Qualified Code(s): E11.65 - Type 2 diabetes mellitus with hyperglycemia; Z79.4 - superintendent terminal (current) use of insulin (11) Hypertension: Qualifiers: Hypertension type: essential hypertension Qualified Code(s): I10 - Essential (primary) hypertension (12) Hyperlipidemia: Qualifiers: Hyperlipidemia type: mixed hyperlipidemia Qualified Code(s): E78.2 - Mixed hyperlipidemia (13) Obesity: Plan We should discover who is actually empowered to make the decision. His girlfriend and he are not and so I am not sure if she is the one who can make that decision given she is what would be considered a common-law . I believe the only other close siblings are brothers. It seems every provider is in favor of withdrawing of care and comfort measures. Attestations Medical Necessity Statement*: Continued hospitalization for out of hospital cardiac arrest and anoxic brain encephalopathy. 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 transplanted heart: [place] heart Associated angina: without angina Diabetes E11.65; Z79.4 Diabetes mellitus type: type 2 Diabetes mellitus shelter insulin use: with termite renewal inspector use Diabetes mellitus complication status: with hyperglycemia Hypertension I10 Hypertension type: essential hypertension Hyperlipidemia E78.2 Hyperlipidemia type: mixed hyperlipidemia Obesity E66.9
[2022-06-01 07:51] LABS: Glucose Point of Care 131 mg/dL (70-110)
[2022-06-01] MEDS: atorvastatin 40 mg Tablet 80 MG PO (08:15)
[2022-06-01] MEDS: aspirin 81 mg Chew Tablet PO (08:16)
[2022-06-01] MEDS: pantoprazole 40 mg SDV IVP ×2 (08:18→17:21)
[2022-06-01] MEDS: hyDRALAzine 20 mg/mL INJ 1 mL 10 MG IVP (09:28)
--- NOTE | 2022-06-01 10:35 | PC.NURSE ---
1002 Dr. Cruz orders comfort care only, stop Heparin drip and antibiotics, but keep Amniodaron at 1mg, keep vent on CPAP and stop blood pressure checks and lab draws after he spoke with family. I stopped Heparin drip and antibiotics, blood pressure checks and blood draws.
--- NOTE | 2022-06-01 13:19 | P.PN_ITS ---
Subjective Subjective: No acute events overnight. Patient has remained hemodynamically stable and afebrile. Has remained on minimal ventilator setting. Currently on SIMV mode. Patient remained on CPAP mode. Around 2 AM last night for the whole day. Was transitioned back to SIMV apparently as per the nurse for apneic episodes. Transition back to CPAP mode during examination today and patient looked comfortable. Remains minimally responsive. Continued on amiodarone and heparin drip. Not on sedation. Medications: Reviewed: Yes Vitals/I&O/Wt Last Vital Signs Temp 98.4 F 06/01/22 12:00 Pulse 65 06/01/22 12:00 Resp 26 H 06/01/22 12:00 BP 174/96 06/01/22 12:00 Pulse Ox 93 06/01/22 12:00 O2 Del Method 06/01/22 08:00 FiO2 30 06/01/22 12:00 05/31/22 06/01/22 06/01/22 22:59 06:59 14:59 Intake Total 800 / 1368 1050 / 2418 1173.833 / 1173.833 Output Total 1700 / 2175 750 / 2925 0 / 0 Balance -900 / -807 300 / -507 1173.833 / 1173.833 Weight last 48 hrs Weight 118.705 kg Weight 119.295 kg Physical Exam Narrative: General exam demonstrates an unresponsive patient, wakes up and open eyes when finding difficulty to breathe on ventilator on switching the mode, not following commands or tracking in the room, GCS: E1 M1 VT HEENT: Pupils equally round. Gaze not quite conjugate, more with right es otropia. Endotracheal tube and orogastric tube noted Neck supple no lymphadenopathy thyromegaly Cardiovascular regular rate and rhythm, pansystolic murmur at apex Lungs clear no wheezing or crackles Abdomen is soft obese nontender positive bowel sounds Extremities no cyanosis clubbing or edema, cap refill brisk Skin no rash Neuro: Pupillary reflexes present. Urinary Catheter Management: Tom: Cath Placed During This Visit: yes Reason for Continuing Indwelling Catheter: Accurate Measurement of Urinary Output in Critically Ill Patients Urinary Catheter Date of Insertion: 05/24/22 Urinary Catheter Time of Insertion: 18:15 Data 05/31/22 04:16 05/31/22 04:16 Micro: Microbiology 05/31/22 14:10 Gram Stain - Final Sputum - Endotracheal Tube Aspirate Sputum Culture - Preliminary 05/31/22 11:16 Blood Culture - Preliminary Blood NEGATIVE TO DATE 05/31/22 11:10 Blood Culture - Preliminary Blood NEGATIVE TO DATE 05/26/22 18:00 Blood Culture - Final Blood NO GROWTH AFTER 5 DAYS 05/26/22 17:45 Blood Culture - Final Blood NO GROWTH AFTER 5 DAYS A&P Assessment and plan (1) Acute encephalopathy: Could be secondary to vegetative state in a patient with prolonged CPR when found unresponsive for unknown amount of time. EEG done shows no seizures but diffuse slowing with artifacts without additional prognosticating value. Hold off on any further Keppra for now. No evidence seizures while being in the hospital. Found to have low grade fever which could be related to overall poor recommendation versus central fevers versus infectious in nature. Check ammonia levels, vitamin B12, folate level. TSH and A1c recently checked. Will consult neurology for further prognostication and possible transition to hospice if patient found to be in vegetative state. (2) Cardiac arrest with ventricular fibrillation: Appreciate cardiology recommendations. Found to have severe multivessel disease. Also found to have ischemic cardiomyopathy with EF of around 10 to 15%. Heart rate better. Continue amiodarone drip as per cardiology recommendations. For now on metoprolol as needed. If continues to remain stable hemodynamically we will transition to oral metoprolol within next 24 hours. (3) Ischemic cardiomyopathy: Echocardiogram done during this hospitalization shows an EF of 10 to 15% with global LV hypokinesia. Keep mean arterial pressure over 65. Metoprolol as above. Hold off on enalapril for now given KB. (4) Leukocytosis: Persistent leukocytosis. Also having recurrent low-grade fevers now. Could be set still but cannot rule out infection. Continue with cefepime. Start on vancomycin. Check blood culture, urinalysis, repeat sputum culture. Work-up earlier in the admission showed as followed? Gallbladder ultrasound obtained, with cholelithiasis without evidence of cholecystitis. Fatty liver. Sputum culture with heavy normal mckinley. Blood culture remains negative. Urine culture without growth. (5) Atrial fibrillation: As above. Appreciate cardiology recommendations. (6) Signs of return of spontaneous circulation: (7) ST elevation myocardial infarction (STEMI): With history of underlying severe triple-vessel disease. Continue with aspirin, statin. Appreciate recent lipid panel and A1c within last 6 months. Continue with heparin drip. (8) Neuropathy: (9) Coronary artery disease: Qualifiers: Coronary Disease-Associated Artery/Lesion type: [place] artery [place] vs. transplanted heart: [place] heart Associated angina: without angina Qualified Code(s): I25.10 - Atherosclerotic heart disease of [place] coronary artery without angina pectoris (10) Diabetes: Insulin sliding scale every 6 hourly moderate dose protocol. Lantus 12 units at bedtime. Monitor for hypoglycemia. 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 Qualifiers: Hypertension type: essential hypertension Qualified Code(s): I10 - Essential (primary) hypertension (12) COPD (chronic obstructive pulmonary disease): Qualifiers: COPD type: unspecified COPD Qualified Code(s): J44.9 - Chronic obstructive pulmonary disease, unspecified (13) Obesity: (14) KB (acute kidney injury): Strict input output charting. Creatinine down to 1.4. No obstruction on ultrasound Medical reconciliation done for nephrotoxic drugs. Continue to monitor BMP daily. (15) Transaminitis: Secondary to cardiac arrest, with improvement. Reassess liver parameters. (16) Thrombocytopenia: Most likely post CPR status. (17) Goals of care, counseling/discussion: Plan His life partner states that he overall has also been recently tired. Negative rapid flu, COVID-19, unremarkable TSH. Likely secondary to cardiomyopathy/low EF. Will consult neurology for further prognostication and possibility of vegetative state. Infectious work-up as above. Continue with low ventilator support with spontaneous breathing to watch for apneic events. Normal saline at 75 cc/h for liters. Check vitamin B12, folate, iron panel, ammonia. CODE STATUS: DNR/DNI. NPO. Depending on mental status within next 24 hours if patient remains on ventilator we will plan to start tube feeds. Protonix for PUD prophylaxis Heparin drip will suffice for DVT prophylaxis. Plan for the day: Appreciate neurology recommendations. Patient remains minimally responsive. Patient continues to remain off sedation without reflexes. Care discussed in detail with patient's caregiver/life partner. We discussed the recommendations from neurology along with patient being minimally responsive off sedation for around more than 7 days with a history of prolonged CPR that chances of any meaningful recovery are minimal and there is a high concern for vegetative state. Ms. Copeland verbalizes understanding and is agreeable. She is agreeable for withdrawal of care. She is requesting patient to remain intubated till she can make further arrangements within next 24 hours. She is agreeable to withdrawal of medications till then. Comfort measures. Stop heparin drip, antibiotics, blood work, vital checks. Continue with amiodarone drip for now. Plan for terminal extubation once family at bedside. Care plan related to patient's RN. Attestations Medical Necessity Statement*: Post sleepPatient requires further hospitalization for management of your care secondary to ST elevation [place], m alignant arrhythmia in a patient with baseline severe triple-vessel disease while further goals of care discussions are done and care is withdrawn given patient being in vegetative state. Critical Care Time: The high probability of a clinically significant, sudden or life threatening deterioration of the patient's [cardiac, neurological, renal, goals of care discussion] system(s) required my full and direct attention, intervention and personal management. The critical care time is as shown. This time is in addition to time spent performing any reported procedures but includes the following: [x] Data and vital sign review and interpretation [x] Patient assessment, examination and intervention [x] Documentation [x] Medication orders and management Critical Care Time (min): 60 Coding Level of Care Code Acute Gun Tester for [facility] Fwd Diagnoses Acute encephalopathy G93.40 Cardiac arrest with ventricular fibrillation I46.9; I49.01 Ischemic cardiomyopathy I25.5 Leukocytosis D72.829 Atrial fibrillation I48.91 Signs of return of spontaneous circulation ST elevation myocardial infarction (STEMI) I21.3 Neuropathy G62.9 Coronary artery disease I25.10 Coronary Disease-Associated Artery/Lesion type: [place] artery [place] vs. transplanted heart: [place] heart Associated angina: without angina Diabetes E11.65; Z79.4 Diabetes mellitus type: type 2 Diabetes mellitus comb winder insulin use: with comb winder use Diabetes mellitus complication status: with hyperglycemia Hypertension I10 Hypertension type: essential hypertension COPD (chronic obstructive pulmonary disease) J44.9 COPD type: unspecified COPD Obesity E66.9 KB (acute kidney injury) N17.9 Transaminitis R74.01 Thrombocytopenia D69.6 Goals of care, counseling/discussion Z71.89
[2022-06-02] VITALS (31 sets, daily range): BP systolic 162–181; BP diastolic 79–97; PULSE 66–75; RESP 4–32; TEMP 37.2; O2SAT 92–97; BMI 40.3
--- NOTE | 2022-06-02 00:47 | PC.NURSE ---
Update Family Patient brother Braulio called, provided him with update regarding decision to transition to comfort measures. Braulio asked to be notified when/if patient should pass away at facility.
[2022-06-02] MEDS: chlorhexidine gluconate 4% Btl 118 mL 1 APPLIC TOPICAL (01:00)
--- NOTE | 2022-06-02 06:46 | PC.NURSE ---
Shift Note Frequent safety and comfort rounds continue. Orders and/or nursing care completed as indicated. Patient monitored for response to intervention and treatment(s). Education provided includes treatment plan. Patient family (brother-Braulio) verbalized understanding of teaching. Patient had an uneventful shift, remains intubated vent settings as follows; mode-SIMV, FiO2-30%, VT-500, Peep-5, rate-12. Amiodarone infusing per protocol please see MAR for infusion rates. OG tube remains hooked to low-intermittent wall suction at this time. Tom catheter drained 600 mls of urine overnight. Will continue to monitor.
--- NOTE | 2022-06-02 07:16 | P.PN_ITS ---
Subjective Subjective: No change in overall condition. Remains in sinus rhythm. Still on amiodarone but all other drips have been discontinued. Apparently the plan is for extubation today. Vitals/I&O/Wt Last Vital Signs Temp 99.1 F 06/01/22 20:00 Pulse 72 06/02/22 06:00 Resp 19 H 06/02/22 06:00 BP 174/96 06/01/22 12:00 Pulse Ox 96 06/02/22 06:00 O2 Del Method 06/01/22 20:00 FiO2 30 06/02/22 06:00 06/01/22 06/02/22 06/02/22 22:59 06:59 14:59 Intake Total 0 / 1173.833 518 / 1691.833 Output Total 1775 / 1775 850 / 2625 Balance -1775 / -601.167 -332 / -933.167 Weight last 48 hrs Weight 257 lb 9 oz Weight 261 lb 11.2 oz Physical Exam Narrative: GENERAL: In general his neurological status is unchanged HEENT: Exam within normal limits. NECK: Supple without jugular vein distention. The carotid upstroke is normal without bruits. BACK: Exam normal. LUNGS: Clear. HEART: Regular rate and rhythm. ABDOMEN: Benign without organomegaly or tenderness. EXTREMITIES: No edema. NEUROLOGIC: Obtundation and near coma, no response to commands or deep stimulation today. SKIN: Unremarkable. Urinary Catheter Management: Tom: Cath Placed During This Visit: yes Reason for Continuing Indwelling Catheter: Accurate Measurement of Urinary Output in Critically Ill Patients Urinary Catheter Date of Insertion: 05/24/22 Urinary Catheter Time of Insertion: 18:15 Data 05/31/22 04:16 05/31/22 04:16 Micro: Microbiology 05/31/22 14:10 Gram Stain - Final Sputum - Endotracheal Tube Aspirate Sputum Culture - Preliminary 05/31/22 11:16 Blood Culture - Preliminary Blood NEGATIVE TO DATE 05/31/22 11:10 Blood Culture - Preliminary Blood NEGATIVE TO DATE A&P Assessment and plan (1) Anoxic encephalopathy: (2) Thrombocytopenia: (3) Atrial fibrillation: (4) Transaminitis: (5) KB (acute kidney injury): (6) Ischemic cardiomyopathy: (7) Tobacco abuse: (8) Cardiac arrest with ventricular fibrillation: (9) Coronary artery disease: Qualifiers: Coronary Disease-Associated Artery/Lesion type: [place] artery [place] vs. 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 Attestations Medical Necessity Statement*: Hospitalization for out of hospital cardiac arrest. Coding Level of Care Code Established Pt Acute Internal Controls Analyst for [facility] Fwd Patient Type Established History Detailed Exam Detailed Medical Decision Making Moderate Complexity Diagnoses Anoxic encephalopathy G93.1 Thrombocytopenia D69.6 Atrial fibrillation I48.91 Transaminitis R74.01 KB (acute kidney injury) N17.9 Ischemic cardiomyopathy I25.5 Tobacco abuse Z72.0 Cardiac arrest with ventricular fibrillation I46.9; I49.01 Coronary artery disease I25.10 Coronary Disease-Associated Artery/Lesion type: [place] artery [place] vs. transplanted heart: [place] heart Associated angina: without angina Diabetes E11.65; Z79.4 Diabetes mellitus type: type 2 Diabetes mellitus long-term insulin use: with long-term use Diabetes mellitus complication status: with hyperglycemia Hypertension I10 Hypertension type: essential hypertension Hyperlipidemia E78.2 Hyperlipidemia type: mixed hyperlipidemia COPD (chronic obstructive pulmonary disease) J44.9 COPD type: unspecified COPD Obesity E66.9
[2022-06-02] MEDS: pantoprazole 40 mg SDV IVP (10:32)
--- NOTE | 2022-06-02 10:53 | PC.SOCIAL ---
IMM Update Copy left at bedside for family to review. Pt is still intubated at this time. Initialed, dated, & timed copy in chart.
--- NOTE | 2022-06-02 15:51 | PM.PN ---
Subjective Subjective: Status quo. Overnight patient has been on and off on CPAP mode with ventilator with episodes of apnea. Today morning on examination was on full support and turned down to CPAP again. Care was discussed in detail with patient's life partner/DPOA again at bedside. She verbalized understanding and would want to go ahead with terminal extubation. Neurological examination has remained the same. Medications: Reviewed: Yes Vitals/I&O/Wt Last Vital Signs Temp 99.0 F 06/02/22 07:19 Pulse 69 06/02/22 14:00 Resp 20 H 06/02/22 14:03 BP 162/95 06/02/22 14:00 Pulse Ox 97 06/02/22 14:03 O2 Del Method 06/02/22 07:34 FiO2 30 06/02/22 14:03 06/02/22 06/02/22 06/02/22 06:59 14:59 22:59 Intake Total 518 / 1691.833 0 / 0 Output Total 850 / 2625 2049 Balance -332 / -933.167 -2049 Weight last 48 hrs Weight 116.828 kg Weight 118.705 kg Physical Exam Narrative: General exam demonstrates an unresponsive patient, wakes up and open eyes when finding difficulty to breathe on ventilator on switching the mode, not following commands or tracking in the room, GCS: E1 M1 VT HEENT: Pupils equally round. Gaze not quite conjugate, more with right esotropia. Endotracheal tube and orogastric tube noted Neck supple no lymphadenopathy thyromegaly Cardiovascular regular rate and rhythm, pansystolic murmur at apex Lungs clear no wheezing or crackles Abdomen is soft obese nontender positive bowel sounds Extremities no cyanosis clubbing or edema, cap refill brisk Skin no rash Neuro: Pupillary reflexes present. Urinary Catheter Management: Otm: Cath Placed During This Visit: yes Reason for Continuing Indwelling Catheter: Accurate Measurement of Urinary Output in Critically Ill Patients Urinary Catheter Date of Insertion: 05/24/22 Urinary Catheter Time of Insertion: 18:15 Data 05/31/22 04:16 05/31/22 04:16 Micro: Microbiology 05/31/22 14:10 Gram Stain - Final Sputum - Endotracheal Tube Aspirate Sputum Culture - Preliminary Yeast species 05/31/22 11:16 Blood Culture - Preliminary Blood NEGATIVE TO DATE 05/31/22 11:10 Blood Culture - Preliminary Blood NEGATIVE TO DATE A&P Assessment and plan (1) Acute encephalopathy: Could be secondary to vegetative state in a patient with prolonged CPR when found unresponsive for unknown amount of time. EEG done shows no seizures but diffuse slowing with artifacts without additional prognosticating value. Hold off on any further Keppra for now. No evidence seizures while being in the hospital. Found to have low grade fever which could be related to overall poor recommendation versus central fevers versus infectious in nature. Check ammonia levels, vitamin B12, folate level. TSH and A1c recently checked. Will consult neurology for further prognostication and possible transition to hospice if patient found to be in vegetative state. (2) Cardiac arrest with ventricular fibrillation: Appreciate cardiology recommendations. Found to have severe multivessel disease. Also found to have ischemic cardiomyopathy with EF of around 10 to 15%. Heart rate better. Continue amiodarone drip as per cardiology recommendations. For now on metoprolol as needed. If continues to remain stable hemodynamically we will transition to oral metoprolol within next 24 hours. (3) Ischemic cardiomyopathy: Echocardiogram done during this hospitalization shows an EF of 10 to 15% with global LV hypokinesia. Keep mean arterial pressure over 65. Metoprolol as above. Hold off on enalapril for now given KB. (4) Leukocytosis: Persistent leukocytosis. Also having recurrent low-grade fevers now. Could be set still but cannot rule out infection. Continue with cefepime. Start on vancomycin. Check blood culture, urinalysis, repeat sputum culture. Work-up earlier in the admission showed as followed? Gallbladder ultrasound obtained, with cholelithiasis without evidence of cholecystitis. Fatty liver. Sputum culture with heavy normal mckinley. Blood culture remains negative. Urine culture without growth. (5) Atrial fibrillation: As above. Appreciate cardiology recommendations. (6) Signs of return of spontaneous circulation: (7) ST elevation myocardial infarction (STEMI): With history of underlying severe triple-vessel disease. Continue with aspirin, statin. Appreciate recent lipid panel and A1c within last 6 months. Continue with heparin drip. (8) Neuropathy: (9) Coronary artery disease: Qualifiers: Coronary Disease-Associated Artery/Lesion type: [place] artery [place] vs. transplanted heart: [place] heart Associated angina: without angina Qualified Code(s): I25.10 - Atherosclerotic heart disease of [place] coronary artery without angina pectoris (10) Diabetes: Insulin sliding scale every 6 hourly moderate dose protocol. Lantus 12 units at bedtime. Monitor for hypoglycemia. 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 Qualifiers: Hypertension type: essential hypertension Qualified Code(s): I10 - Essential (primary) hypertension (12) COPD (chronic obstructive pulmonary disease): Qualifiers: COPD type: unspecified COPD Qualified Code(s): J44.9 - Chronic obstructive pulmonary disease, unspecified (13) Obesity: (14) KB (acute kidney injury): Strict input output charting. Creatinine down to 1.4. No obstruction on ultrasound Medical reconciliation done for nephrotoxic drugs. Continue to monitor BMP daily. (15) Transaminitis: Secondary to cardiac arrest, with improvement. Reassess liver parameters. (16) Thrombocytopenia: Most likely post CPR status. (17) Goals of care, counseling/discussion: Plan His life partner states that he overall has also been recently tired. Negative rapid flu, COVID-19, unremarkable TSH. Likely secondary to cardiomyopathy/low EF. Will consult neurology for further prognostication and possibility of vegetative state. Infectious work-up as above. Continue with low ventilator support with spontaneous breathing to watch for apneic events. Normal saline at 75 cc/h for liters. Check vitamin B12, folate, iron panel, ammonia. CODE STATUS: DNR/DNI. NPO. Depending on mental status within next 24 hours if patient remains on ventilator we will plan to start tube feeds. Protonix for PUD prophylaxis Heparin drip will suffice for DVT prophylaxis. Plan for the day: Plan for terminal extubation today. Stop amiodarone drip. Case management alerted for possible hospice care. Attestations Medical Necessity Statement*: Requires further hospital while terminal extubation is done as per goals of care discussion and comfort measures status only Time Spent in Patient Care: Greater than 35 minutes Coding Level of Care Code Acute Patient Care Technician Instructor for [facility] Fw Diagnoses Acute encephalopathy G93.40 Cardiac arrest with ventricular fibrillation I46.9; I49.01 Ischemic cardiomyopathy I25.5 Leukocytosis D72.829 Atrial fibrillation I48.91 Signs of return of spontaneous circulation ST elevation myocardial infarction (STEMI) I21.3 Neuropathy G62.9 Coronary artery disease I25.10 Coronary Disease-Associated Artery/Lesion type: [place] artery [place] vs. transplanted heart: [place] heart Associated angina: without angina Diabetes E11.65; Z79.4 Diabetes mellitus type: type 2 Diabetes mellitus care home insulin use: with supervisor intermediates use Diabetes mellitus complication status: with hyperglycemia Hypertension I10 Hypertension type: essential hypertension COPD (chronic obstructive pulmonary disease) J44.9 COPD type: unspecified COPD Obesity E66.9 KB (acute kidney injury) N17.9 Transaminitis R74.01 Thrombocytopenia D69.6 Goals of care, counseling/discussion Z71.89
--- NOTE | 2022-06-02 17:17 | PC.NURSE ---
Pt extubated Pt extubated per orders and family wishes by RT and nursing. Pt's partner at bedside. Pt placed on nasal cannula.
--- NOTE | 2022-06-02 22:30 | PC.NURSE ---
Update Family Patient brothchinyere Ramsey called asking for an update, this nurse provided update regarding pt care. All questions answered at this time.
[2022-06-03] VITALS (24 sets, daily range): BP systolic 147–191; BP diastolic 91–97; PULSE 65–82; RESP 6–29; TEMP 36.7–37.4; O2SAT 92–98; BMI 38.2
[2022-06-03] MEDS: morphine 4 mg/mL SDV 1 mL IVP ×2 (01:06→06:02)
[2022-06-03] MEDS: chlorhexidine gluconate 4% Btl 118 mL 1 APPLIC TOPICAL (01:09)
--- NOTE | 2022-06-03 06:08 | PC.NURSE ---
Shift Note Frequent safety and comfort rounds continue. Orders and/or nursing care completed as indicated. Patient monitored for response to intervention and treatment(s). Education provided includes treatment plan and medications. Patient family verbalize understanding of teaching. Patient had an uneventful shift, remains on 2LNC. No wounds or skin issues noted at this time. Tom catheter drained 1400 mls of urine overnight and patient had 1 large BM. Patient does not respond to painful/verbal stimuli and does not follow commands. Will continue to monitor.
--- NOTE | 2022-06-03 07:08 | P.PN_ITS ---
Subjective Subjective: The decision was made to extubate him yesterday which was accomplished. The amiodarone drip was discontinued. He has continued breathing on his own. His rhythm remained sinus. His blood pressure is high 181/97. Neurologic status has not changed. Vitals/I&O/Wt Last Vital Signs Temp 99.3 F 06/03/22 05:00 Pulse 72 06/03/22 06:00 Resp 29 H 06/03/22 06:00 BP 181/97 06/03/22 06:00 Pulse Ox 92 06/03/22 06:00 O2 Del Method 06/03/22 05:00 O2 Flow Rate 2 06/03/22 05:00 FiO2 30 06/02/22 18:00 06/02/22 06/03/22 06/03/22 22:59 06:59 14:59 Output Total 900 / 2950 1400 / 4350 Balance -900 / -2950 -1400 / -4350 Weight last 48 hrs Weight 244 lb 7 oz Weight 257 lb 9 oz Physical Exam Narrative: GENERAL: Neurologic status is unchanged. Extubated. HEENT: Exam within normal limits. NECK: Supple without jugular vein distention. The carotid upstroke is normal without bruits. BACK: Exam normal. LUNGS: Clear. HEART: Regular rate and rhythm. ABDOMEN: Benign without organomegaly or tenderness. EXTREMITIES: No edema. NEUROLOGIC: Comatose. SKIN: Unremarkable. Urinary Catheter Management: Tom: Cath Placed During This Visit: yes Reason for Continuing Indwelling Catheter: Accurate Measurement of Urinary Output in Critically Ill Patients Urinary Catheter Date of Insertion: 05/24/22 Urinary Catheter Time of Insertion: 18:15 Data 05/31/22 04:16 05/31/22 04:16 Micro: Microbiology 05/31/22 14:10 Gram Stain - Final Sputum - Endotracheal Tube Aspirate Sputum Culture - Preliminary Yeast species A&P Assessment and plan (1) Anoxic encephalopathy: (2) Thrombocytopenia: (3) Atrial fibrillation: (4) Transaminitis: (5) KB (acute kidney injury): (6) Ischemic cardiomyopathy: (7) Tobacco abuse: (8) Cardiac arrest with ventricular fibrillation: (9) Coronary artery disease: Qualifiers: Coronary Disease-Associated Artery/Lesion type: [place] artery [place] vs. 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 I will sign off. Attestations Medical Necessity Statement*: Comfort care for treatment of [id number] cardiac arrest. 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
[2022-06-03] MEDS: morphine 10 mg/0.5 mL oral liq UD SUBLINGUAL ×2 (08:58→20:25)
--- NOTE | 2022-06-03 14:58 | PM.PN ---
Subjective Subjective: Status quo. Patient extubated yesterday. Remains comfortable on 2 L. Medications: Reviewed: Yes Vitals/I&O/Wt Last Vital Signs Temp 98.9 F 06/03/22 10:00 Pulse 69 06/03/22 13:00 Resp 16 06/03/22 12:00 BP 181/97 06/03/22 13:00 Pulse Ox 94 06/03/22 13:00 O2 Del Method 06/03/22 10:00 O2 Flow Rate 2 06/03/22 10:00 FiO2 30 06/02/22 18:00 06/02/22 06/03/22 06/03/22 22:59 06:59 14:59 Output Total 900 / 2950 1400 / 4350 250 / 250 Balance -900 / -2950 -1400 / -4350 -250 / -250 Weight last 48 hrs Weight 110.875 kg Weight 116.828 kg Physical Exam Narrative: Not examined given comfort measures status Urinary Catheter Management: Tom: Cath Placed During This Visit: yes Reason for Continuing Indwelling Catheter: Accurate Measurement of Urinary Output in Critically Ill Patients Urinary Catheter Date of Insertion: 05/24/22 Urinary Catheter Time of Insertion: 18:15 Data 05/31/22 04:16 05/31/22 04:16 Micro: Microbiology 05/31/22 14:10 Gram Stain - Final Sputum - Endotracheal Tube Aspirate Sputum Culture - Preliminary Yeast species A&P Assessment and plan (1) Acute encephalopathy: Could be secondary to vegetative state in a patient with prolonged CPR when found unresponsive for unknown amount of time. EEG done shows no seizures but diffuse slowing with artifacts without additional prognosticating value. Hold off on any further Keppra for now. No evidence seizures while being in the hospital. Found to have low grade fever which could be related to overall poor recommendation versus central fevers versus infectious in nature. Check ammonia levels, vitamin B12, folate level. TSH and A1c recently checked. Will consult neurology for further prognostication and possible transition to hospice if patient found to be in vegetative state. (2) Cardiac arrest with ventricular fibrillation: Appreciate cardiology recommendations. Found to have severe multivessel disease. Also found to have ischemic cardiomyopathy with EF of around 10 to 15%. Heart rate better. Continue amiodarone drip as per cardiology recommendations. For now on metoprolol as needed. If continues to remain stable hemodynamically we will transition to oral metoprolol within next 24 hours. (3) Ischemic cardiomyopathy: Echocardiogram done during this hospitalization shows an EF of 10 to 15% with global LV hypokinesia. Keep mean arterial pressure over 65. Metoprolol as above. Hold off on enalapril for now given KB. (4) Leukocytosis: Persistent leukocytosis. Also having recurrent low-grade fevers now. Could be set still but cannot rule out infection. Continue with cefepime. Start on vancomycin. Check blood culture, urinalysis, repeat sputum culture. Work-up earlier in the admission showed as followed? Gallbladder ultrasound obtained, with cholelithiasis without evidence of cholecystitis. Fatty liver. Sputum culture with heavy normal mckin[place]. Blood culture remains negative. Urine culture without growth. (5) Atrial fibrillation: As above. Appreciate cardiology recommendations. (6) Signs of return of spontaneous circulation: (7) ST elevation myocardial infarction (STEMI): With history of underlying severe triple-vessel disease. Continue with aspirin, statin. Appreciate recent lipid panel and A1c within last 6 months. Continue with heparin drip. (8) Neuropathy: (9) Coronary artery disease: Qualifiers: Coronary Disease-Associated Artery/Lesion type: [place] artery [place] vs. transplanted heart: [place] heart Associated angina: without angina Qualified Code(s): I25.10 - Atherosclerotic heart disease of [place] coronary artery without angina pectoris (10) Diabetes: Insulin sliding scale every 6 hourly moderate dose protocol. Lantus 12 units at bedtime. Monitor for hypoglycemia. 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 Qualifiers: Hypertension type: essential hypertension Qualified Code(s): I10 - Essential (primary) hypertension (12) COPD (chronic obstructive pulmonary disease): Qualifiers: COPD type: unspecified COPD Qualified Code(s): J44.9 - Chronic obstructive pulmonary disease, unspecified (13) Obesity: (14) KB (acute kidney injury): Strict input output charting. Creatinine down to 1.4. No obstruction on ultrasound Medical reconciliation done for nephrotoxic drugs. Continue to monitor BMP daily. (15) Transaminitis: Secondary to cardiac arrest, with improvement. Reassess liver parameters. (16) Thrombocytopenia: Most likely post CPR status. (17) Goals of care, counseling/discussion: Plan His life partner states that he overall has also been recently tired. Negative rapid flu, COVID-19, unremarkable TSH. Likely secondary to cardiomyopathy/low EF. Will consult neurology for further prognostication and possibility of vegetative state. Infectious work-up as above. Continue with low ventilator support with spontaneous breathing to watch for apneic events. Normal saline at 75 cc/h for liters. Check vitamin B12, folate, iron panel, ammonia. CODE STATUS: DNR/DNI. NPO. Depending on mental status within next 24 hours if patient remains on ventilator we will plan to start tube feeds. Protonix for PUD prophylaxis Heparin drip will suffice for DVT prophylaxis. Plan for the day: Continue with comfort measures status. Case management alerted for hospice referral. Transfer to med/surg. Attestations Medical Necessity Statement*: Requires further hospitalisation while hospice as set up Time Spent in Patient Care: less than 15 minutes Coding Level of Care Code Acute Radiographer Cardiac Catheterization for [facility] Fwd Diagnoses Acute encephalopathy G93.40 Cardiac arrest with ventricular fibrillation I46.9; I49.01 Ischemic cardiomyopathy I25.5 Leukocytosis D72.829 Atrial fibrillation I48.91 Signs of return of spontaneous circulation ST elevation myocardial infarction (STEMI) I21.3 Neuropathy G62.9 Coronary artery disease I25.10 Coronary Disease-Associated Artery/Lesion type: [place] artery [place] vs. transplanted heart: [place] heart Associated angina: without angina Diabetes E11.65; Z79.4 Diabetes mellitus type: type 2 Diabetes mellitus custodial insulin use: with custodial use Diabetes mellitus complication status: with hyperglycemia Hypertension I10 Hypertension type: essential hypertension COPD (chronic obstructive pulmonary disease) J44.9 COPD type: unspecified COPD Obesity E66.9 KB (acute kidney injury) N17.9 Transaminitis R74.01 Thrombocytopenia D69.6 Goals of care, counseling/discussion Z71.89
[2022-06-04] VITALS (14 sets, daily range): BP systolic 145–190; BP diastolic 79–96; PULSE 76–94; RESP 11–29; TEMP 36.7–36.9; O2SAT 88–96
[2022-06-04] MEDS: morphine 10 mg/0.5 mL oral liq UD SUBLINGUAL ×3 (03:27→12:48)
[2022-06-04] MEDS: pantoprazole 40 mg SDV IVP (09:01)
--- NOTE | 2022-06-04 09:31 | PM.DCS ---
Discharge Providers Date of Admission: 05/24/22 19:46 Date of Discharge: June 04, 2022 Attending Provider at Admission: Jeramy Melchor MD Attending Provider at Discharge: Brannon Trevino MD Consults: Cardiology: Dr. Sagastume Neurology: Dr. Short Primary Care Provider: Alicia De MD Diagnoses at Discharge Discharge Diagnosis (1) Acute encephalopathy: Status: Acute (2) Cardiac arrest with ventricular fibrillation: Status: Acute (3) Ischemic cardiomyopathy: Status: Acute (4) Leukocytosis: Status: Acute (5) Atrial fibrillation: Status: Acute (6) Signs of return of spontaneous circulation: Status: Acute (7) ST elevation myocardial infarction (STEMI): Status: Acute (8) Neuropathy: Status: Acute (9) Coronary artery disease: Status: Acute Qualifiers: Associated angina: without angina Coronary Disease-Associated Artery/Lesion type: [place] artery [place] vs. transplanted heart: [place] heart Qualified Code(s): I25.10 - Atherosclerotic heart disease of [place] coronary artery without angina pectoris (10) Diabetes: Status: Acute Qualifiers: Diabetes mellitus complication status: with hyperglycemia Diabetes mellitus terminal make up operator insulin use: with terminal make up operator use Diabetes mellitus type: type 2 Qualified Code(s): E11.65 - Type 2 diabetes mellitus with hyperglycemia; Z79.4 - terminal computer operator (current) use of insulin (11) Hypertension: Status: Acute Qualifiers: Hypertension type: essential hypertension Qualified Code(s): I10 - Essential (primary) hypertension (12) COPD (chronic obstructive pulmonary disease): Status: Acute Qualifiers: COPD type: unspecified COPD Qualified Code(s): J44.9 - Chronic obstructive pulmonary disease, unspecified (13) Obesity: Status: Acute (14) KB (acute kidney injury): Status: Acute (15) Transaminitis: Status: Acute (16) Thrombocytopenia: Status: Acute (17) Goals of care, counseling/discussion: Status: Acute Reason for Visit Reason for Visit: STEMI ALERT Hospital Course Hospital Course Adolfo Barton is a 57 year old male who first saw someone in this clinic about 2 years ago.? He saw the nurse practitioner.? He related that he had a heart attack in 2011 while living in [place].? He also stated that he had a stroke.? He told the nurse practitioner that he had some blockages but no treatment was provided.? Later on that year he was apparently in [place] and had another cardiac episode of some kind.? The notes are nebulous and we do not have the [facility] He may have been told he needed a stent or bypass surgery but apparently declined. He saw Dr. Newton here 1 year ago.? He was complaining of chest pain and shortness of breath.? Stress testing was abnormal in multiple regions.? It suggested the ejection fraction was low however the echo was read as normal.? He was recommended to have coronary angiography but he declined.? He was not seen again until earlier this year when he saw Dr. Olivares in the clinic.? Coronary angiography was carried out in September.? His LAD is occluded in the midportion with collaterals from the left side.? First diagonal is also occluded.? He has a small nondominant right which is occluded and there are lesions in both marginals of a dominant circumflex.? Patient was referred to Dr. John.? He was seen twice the most recent of which was January 07.? Because of the underlying risk of surgery the patient declined according to the notes. He has not been seen since.? He has a history of diabetes, lifelong tobacco abuse, COPD, super morbid obesity and dyslipidemia.? He was at home this evening with his and was in the bathroom.? His heard a funny noise .? She then heard a thud.? She went into the bathroom and he was wedged in the corner standing up but she said he was unresponsive.? She could not get a pulse.? He suddenly came to and was awake for 2 or 3 minutes trying to wash his hands.? He then suddenly collapsed flat on his face on the bathroom floor.? She called 911.? Apparently, his initial rhythm was ventricular tachycardia or fibrillation.? According to the emergency room personnel the patient was cardioverted 3 times.? CPR was done briefly.? He had 4 mg of epinephrine.? He was given 300 mg of amiodarone followed by 150 mg of amiodarone.? He was given 10 mg of Versed and intubated.? This all occurred while at home.? He subsequently vomited.? Apparently he was trying to breathe around the ET tube.? Upon his arrival here he was being bagged and had a rhythm and a blood pressure.? He was given 4000 units of heparin, aspirin rectally.? The out of hospital emergency EKG revealed ST segment elevation in leads V2, V3, V4, V5 and V6.? For this reason a STEMI alert was called.? However, the EKG here revealed no ST elevation in the anterior precordial leads.? His arm leads are reversed.? There is evidence of an old anterior wall VT.? Due to the fairly clear evidence of a STEMI on the prehospital EKG cardiology was consulted and patient was taken to [facility] emerg[facility] where he was found to have stenosis similar to previous angiogram and nothing was found amenable to intervention. Detailed conversation was done with patient's life partner and his condition was explained to her we will need to assess his neurological condition further before making any more decisions and if patient wakes up then plan can be to transfer him to a [facility] for a possible CABG. DPOA verbalized understanding and wanted to continue treatment with medical management for now. Patient was transferred to ICU for further evaluation and management. In the ICU during hospitalization patient continued to have occasional episodes of nonsustained ventricular tachycardia for which he was transitioned over to amiodarone. Patient was maintained on high-dose amiodarone due to difficulty to maintain normal rhythm. Eventually his heart rhythm converted to normal sinus rhythm. Patient continues to remain nonresponsive even off sedation for multiple days. EEG was done which ruled out seizures but was consistent with slow waveform. Patient was found to be in vegetative state. It was confirmed by neurological consultation as well. Given possibility of anoxic brain injury, vegetative state and patient will be off sedation for many days without any changes in his neurological Further goals or discussions were done with patient's DPOA and he was terminally extubated on 06/02. Hospice was arranged. Patient is being discharged with hospice to home with comfort measures. Physical Exam Narrative: Not examined given comfort measures status Urinary Catheter Management: Tom: Cath Placed During This Visit: yes Reason for Continuing Indwelling Catheter: Accurate Measurement of Urinary Output in Critically Ill Patients Urinary Catheter Date of Insertion: 05/24/22 Urinary Catheter Time of Insertion: 18:15 Discharge Data Studies Completed and Pending Completed Studies During Hospitalization Category Date Time Status CT head wo con* [id number] Routine Cat Scan 05/28/22 07:[address] head wo con* [id number] Stat Cat Scan 05/29/22 21:23 Completed RENAL SOCIAL WORKER request for service Stat Exams 05/24/22 18:24 Completed XR chest 1V portable [id number] Routine Exams 05/28/22 07:00 Completed XR chest 1V portable [id number] Stat Exams 05/24/22 18:11 Completed XR chest 1V portable [id number] Stat Exams 05/24/22 20:14 Completed CV. echo complete* [id number] Routine Ultrasound 05/24/22 19:36 Completed US gall bladder [id number] Routine Ultrasound 05/29/22 09:02 Completed US renal BI* [id number] Routine Ultrasound 05/26/22 17:21 Completed Pending at discharge Category Date Time Status EEG electroencephalogram Routine Exams 05/25/22 11:17 Ordered ABG FULL [Arterial Blood Gas Full] Stat Lab 05/24/22 18:11 Ordered Blood Culture Stat Lab 05/31/22 11:16 Results Sputum Culture and Gram Stain Stat Lab 05/31/22 14:10 Results Radiology Impressions Renal Ultrasound 05/26/22 17:21 IMPRESSION: 1. Fatty liver 2. No hydronephrosis. Chest X-Ray 05/28/22 07:00 IMPRESSION: Development of pulmonary edema since previous study.. Gallbladder Ultrasound 05/29/22 09:02 IMPRESSION: 1. Cholelithiasis without sonographic evidence of acute cholecystitis. 2. Fatty liver. Head CT 05/29/22 21:23 IMPRESSION: 1. No focal hemorrhage or midline shift. No change from prior day. 2. Large ventricles again seen with chronic ventriculomegaly likely. Normal pressure hydrocephalus is possible. Follow with neurology. 3. Severe for age vascular calcification as well. Laboratory Results WBC 20.9 10^3/uL (4.0-10.0) H 05/31/22 04:16 Corrected WBC Cancelled 05/25/22 01:40 RBC 6.45 10^6/uL (4.1-5.3) H 05/31/22 04:16 Hgb 18.1 g/dL (11.7-16.6) H 05/31/22 04:16 Hct 56.6 % (42.0-52.0) H 05/31/22 04:16 MCV 87.8 fl (80-94) 05/31/22 04:16 MCH 28.1 pg (28.0-34.0) 05/31/22 04:16 MCHC 32.0 g/dL (30.0-36.0) 05/31/22 04:16 RDW 14.9 % (12.1-15.1) 05/31/22 04:16 Plt Count 91 10^3/cmm (130-400) L 05/31/22 04:16 MPV 12.4 fL (7.4-10.4) H 05/31/22 04:16 Gran % Cancelled 05/25/22 01:40 Neut % (Auto) 88.2 % 05/31/22 04:16 Lymph % (Auto) 5.9 % 05/31/22 04:16 [place] % (Auto) 5.2 % 05/31/22 04:16 Eos % (Auto) 0.0 % 05/31/22 04:16 Baso % (Auto) 0.1 % 05/31/22 04:16 Neut # (Auto) 18.38 10^3/uL (1.8-7.7) H 05/31/22 04:16 Lymph # (Auto) 1.2 10^3/uL (0.8-4.8) 05/31/22 04:16 [place] # (Auto) 1.1 10^3/uL (0.2-0.9) H 05/31/22 04:16 Eos # (Auto) 0.0 10^3/uL (0.0-0.8) 05/31/22 04:16 Baso # (Auto) 0.0 10^3/uL (0.0-0.1) 05/31/22 04:16 Absolute Gran (auto) Cancelled 05/25/22 01:40 Nucleated RBC % (auto) 0 % 05/31/22 04:16 Nucleated RBCs # 0.0 /100WBC 05/31/22 04:16 PT 15.00 SECONDS (12.1-14.9) H 05/24/22 18:27 INR 1.15 (0.8-1.2) 05/24/22 18:27 APTT 64.7 SECONDS (23.9-36.7) H 05/31/22 16:00 D-Dimer >= 20.00 ug/mIFEU (0-0.59) H 05/24/22 20:30 Specimen Type Arterial 05/29/22 05:33 Sample Site Radial, right 05/29/22 05:33 ABG pH 7.43 (7.35-7.45) 05/29/22 05:33 ABG pCO2 29.5 mmHg (35-45) L 05/29/22 05:33 ABG pO2 83.1 mmHg (80.0-100.0) 05/29/22 05:33 ABG HCO3 19.3 mmol/L (22-26) L 05/29/22 05:33 ABG O2 Saturation 97.0 05/29/22 05:33 ABG Base Excess -3.5 mmol/L (-2.0-2.0) L 05/29/22 05:33 Beau Test Pos 05/29/22 05:33 A-a O2 Gradient 12.1 mmHg (5-10) H 05/29/22 05:33 Hematocrit 55.3 % (42-52) H 05/29/22 05:33 Hgb O2 Saturation 95.0 % (95-100) 05/29/22 05:33 Carboxyhemoglobin 1.3 %THgb (0.4-20.1) 05/29/22 05:33 Methemoglobin 0.7 % (0.4-1.5) 05/29/22 05:33 Total Hemoglobin 18.0 g/dL (14-18) 05/29/22 05:33 Sodium 145.0 mmol/L (131-143) H 05/29/22 05:33 Potassium 3.6 mmol/L (3.5-5.0) 05/29/22 05:33 Glucose 147.0 mg/dL (70-115) H 05/29/22 05:33 Ionized Calcium 1.2 mmol/L (1.1-1.4) 05/29/22 05:33 O2 Delivery Device Vent 05/29/22 05:33 FiO2 30.0 % 05/29/22 05:33 Tidal Volume 0.50 05/29/22 05:33 PEEP 5.0 cmH20 05/29/22 05:33 Photographer News ID Robert 05/29/22 05:33 Sodium 140 mmol/L (136-145) 05/31/22 04:16 Potassium 3.8 mmol/L (3.5-5.1) 05/31/22 04:16 Chloride 111 mmol/L (98-107) H 05/31/22 04:16 Carbon Dioxide 17 mmol/L (22-29) L 05/31/22 04:16 Anion Gap 15.8 (5-19) 05/31/22 04:16 BUN 46 mg/dL (6-20) H 05/31/22 04:16 Creatinine 1.4 mg/dL (0.7-1.2) H 05/31/22 04:16 GFR Calculation 52.1 mL/min (90-130) L 05/31/22 04:16 Glucose 175 mg/dL (65-115) H 05/31/22 04:16 POC Glucose 131 mg/dL (70-110) H 06/01/22 07:47 Calculated Osmolality 306 mOsm/kg (285-295) H 05/31/22 04:16 Lactate 3.7 mmol/L (0.5-2.2) H 05/25/22 01:40 Calcium 8.5 mg/dL (8.5-10.5) 05/31/22 04:16 Phosphorus 3.0 mg/dL (2.5-4.5) 05/25/22 01:40 Magnesium 2.5 mg/dL (1.7-2.3) H 05/29/22 04:41 Iron 30 ug/dL (59-158) L 05/31/22 04:16 TIBC 159 mcg/dl 05/31/22 04:16 % Saturation 18.8 % (20-50) L 05/31/22 04:16 Unsat Iron Binding 129 ug/dL (112-347) 05/31/22 04:16 Total Bilirubin 1.3 mg/dL (0.15-1.2) H 05/31/22 04:16 AST 23 U/L (0-40) 05/31/22 04:16 ALT 49 U/L (0-41) H 05/31/22 04:16 Alkaline Phosphatase 65 U/L (40-130) 05/31/22 04:16 Troponin T Baseline 54 ng/L (0-15) H 05/24/22 18:27 Troponin T 120 Minute 298.2 ng/L (0-15) H 05/24/22 20:30 Delta Troponin T 244.2 ABS# (0-10) H* 05/24/22 20:30 Troponin T Hi Sens 6Hr 661.2 ng/L (0-15) H 05/25/22 01:40 Troponin T Hi Sens 6Hr Delta 607.2 ng/L (0-12) H* 05/25/22 01:40 C-Reactive Protein 10.1 mg/L (0.0-4.9) H 05/25/22 01:40 NT-Pro-B Natriuret Pep 933 pg/mL (0-125) H 05/24/22 20:30 Total Protein 5.8 g/dL (6.6-8.7) L 05/31/22 04:16 Albumin 2.7 g/dL (3.5-5.2) L 05/31/22 04:16 Globulin 3.1 g/dL (1.3-4.6) 05/31/22 04:16 Vitamin B12 833 pg/mL (232-1245) 05/31/22 04:16 Folate 8.5 ng/mL (4.5-32.2) 05/31/22 04:16 Urine Color Yellow (Yellow) 05/31/22 12:00 Urine Appearance Clear (CLEAR) 05/31/22 12:00 Urine pH 5 (5-7) 05/31/22 12:00 Ur Specific [place] 1.020 (1.005-1.030) 05/31/22 12:00 Urine Protein 1+ (Negative) H 05/31/22 12:00 Urine Glucose (UA) 4+ (Normal) H 05/31/22 12:00 Urine Ketones 1+ (Negative) H 05/31/22 12:00 Urine Blood 2+ (Negative) H 05/31/22 12:00 Urine Nitrate Negative (Negative) 05/31/22 12:00 Urine Bilirubin Neg (Negative) 05/31/22 12:00 Urine Urobilinogen Norm mg/dL (Negative) 05/31/22 12:00 Ur Leukocyte Esterase Negative (Negative) 05/31/22 12:00 Urine RBC 0-4 /hpf (0-2) H 05/31/22 12:00 Urine WBC 0-4 /hpf (0-5) H 05/31/22 12:00 Ur Squamous Epith Cells None /hpf (0-5) 05/31/22 12:00 Amorphous Sediment Not Reportable 05/31/22 12:00 Urine Bacteria 1+ /hpf (NONE) H 05/31/22 12:00 Fine Granular Casts 5-10 /lpf H 05/31/22 12:00 Urine Mucus 1+ /hpf 05/31/22 12:00 Vancomycin Trough 12.4 ug/mL (10-15) 05/28/22 23:05 Coronavirus 229E (PCR) Not detected (NOT DETECT) 05/25/22 17:40 Influenza Type A Ag negative (Negative) 05/25/22 17:40 Influenza Type B Ag negative (Negative) 05/25/22 17:40 SARS-CoV-2 (PCR) Not detected (NOT DETECT) 05/25/22 17:40 Vitals Last Vital Signs Temp 98.1 F 06/04/22 08:00 Pulse 77 06/04/22 09:23 Resp 20 H 06/04/22 09:23 BP 162/89 06/04/22 08:00 Pulse Ox 96 06/04/22 09:23 O2 Del Method 06/04/22 09:23 O2 Flow Rate 2 06/04/22 09:23 FiO2 30 06/02/22 18:00 Discharge Plan Discharge Patient Disposition: Hospice - Home Condition: Stable Prescriptions: Continued aspirin [Adult Low Dose Aspirin] 81 mg tablet,delayed release (DR/EC) 81 mg PO ONCE albuterol sulfate [ProAir HFA] 90 mcg/actuation HFA aerosol inhaler 2 puff INHALATION QID PRN (Reason: shortness of breath or wheezing) Qty: 8.5 4RF Jardiance 25 mg tablet See Rx Instructions .ROUTE .COMPLEX Qty: 60 3RF Dose Instruction: TAKE ONE TABLET BY MOUTH EVERY DAY Rx Instructions: TAKE ONE TABLET BY MOUTH EVERY DAY isosorbide mononitrate 120 mg tablet extended release 24 hr See Rx Instructions .ROUTE .COMPLEX Qty: 90 1RF Dose Instruction: TAKE 1 TABLET BY MOUTH ONCE DAILY IN THE MORNING Rx Instructions: TAKE 1 TABLET BY MOUTH ONCE DAILY IN THE MORNING lisinopril 10 mg tablet 20 mg PO DAILY Qty: 180 1RF pregabalin 75 mg capsule 75 mg PO BID Qty: 60 2RF rosuvastatin 20 mg tablet See Rx Instructions .ROUTE .COMPLEX Qty: 90 3RF Dose Instruction: Take 1 tablet by mouth once daily Rx Instructions: Take 1 tablet by mouth once daily nitroglycerin 0.4 mg tablet, sublingual See Rx Instructions .ROUTE .COMPLEX Qty: 25 0RF Dose Instruction: DISSOLVE ONE TABLET UNDER THE TONGUE EVERY 5 MINUTES NEEDED FOR CHEST PAIN. DO NOT EXCEED A TOTAL OF 3 DOSES IN 15 MINUTES Rx Instructions: DISSOLVE ONE TABLET UNDER THE TONGUE EVERY 5 MINUTES NEEDED FOR CHEST PAIN. DO NOT EXCEED A TOTAL OF 3 DOSES IN 15 MINUTES Humulin 70/30 U-100 Insulin 100 unit/mL (70-30) suspension See Rx Instructions .ROUTE .COMPLEX Qty: 50 0RF Dose Instruction: INJECT 85 UNITS SUBCUTANEOUSLY TWICE DAILY FOR 30 DAYS Rx Instructions: INJECT 85 UNITS SUBCUTANEOUSLY TWICE DAILY FOR 30 DAYS carvedilol 12.5 mg tablet 12.5 mg PO BID Discharge Orders: Discharge Order (Routine); Ordered 06/04/22 Ordered By: Brannon Trevino Referrals: Alicia De MD [Primary Care Provider] - Patient Instructions: Opioid Safety Activity Restrictions/Additional Instructions: Hospice Discharge Attestations Time Spent in Discharge Care*: greater than 30 min Specific Discharge Activities: educating and/or supporting family/caregiver, discussing with catalytic case operator/social workers/dc planners, documenting/other paperwork and evaluating patient/reviewing data Status at Discharge: Cognitive status at discharge: severely impaired cognition, Behavioral status at discharge: cooperative, Functional status at discharge: bed bound, Overall status at discharge: patient has a new baseline Quality Metrics Clinical Quality Measures [ Acute Myocardial Infaction { Clinical Trial Participant: No; Contraindication to aspirin: None; Aspirin prescribed; Contraindication to statin: None; Statin prescribed; Contraindication to PCI: Intervention not indicated; Contraindication to Fibrinolytics: None; fibrinolytics given}] Coding Level of Care Code Acute [facility] note Diagnoses Acute encephalopathy G93.40 Cardiac arrest with ventricular fibrillation I46.9; I49.01 Ischemic cardiomyopathy I25.5 Leukocytosis D72.829 Atrial fibrillation I48.91 Signs of return of spontaneous circulation ST elevation myocardial infarction (STEMI) I21.3 Neuropathy G62.9 Coronary artery disease I25.10 Associated angina: without angina Coronary Disease-Associated Artery/Lesion type: [place] artery [place] vs. transplanted heart: [place] heart Diabetes E11.65; Z79.4 Diabetes mellitus complication status: with hyperglycemia Diabetes mellitus [facility] insulin use: with terminal make up operator use Diabetes mellitus type: type 2 Hypertension I10 Hypertension type: essential hypertension COPD (chronic obstructive pulmonary disease) J44.9 COPD type: unspecified COPD Obesity E66.9 KB (acute kidney injury) N17.9 Transaminitis R74.01 Thrombocytopenia D69.6 Goals of care, counseling/discussion Z71.89
[2022-06-04] MEDS: hyDRALAzine 20 mg/mL INJ 1 mL 10 MG IVP ×2 (09:44→13:04)
--- NOTE | 2022-06-04 10:38 | PC.CHAP ---
Pastoral Care Encounter/Spiritual Assessment Type of Contact [] Declined addresser visit [] Patient/Family/Request visit [] Outpatient visit [] Follow-up visit [] Physician referral [] Code/Alert [x] Routine visit [] Staff referral [] Actively dying [] Patient sleeping [] Family support [] [] Out of room [] Palliative care [] [x] Receiving care in room [] Pre-surgical visit [] Trauma [] Long length of stay [x] ICU visit [x] Other: PT responds to sound.. but doesnt make contact with visitors Relational/Emotional Strength [] Patient feels connected with others/family/visitors/staff [] Distress [] Loneliness/isolation [] Abandonment Spirituality of Patient [] Person of Rhianna [] Attends Mandaen of their Rhianna [] Believes in Prayer [] Reads Bible or Gnosticist materials [] There are Spiritual issues to be addressed Fax Machine Repairer Interventions [x] Prayer [] Active listening [] Non-anxious presence [] Spiritual/emotional support [] Crisis/trauma care [] Spiritual counseling [] Bereavement support [] Provided bereavement packet [] Provided Bible/devotional materials [] Provided toy/stuffed animal, coloring book to patient or family member [] Provided Communion [] Anointing/[place] [] Salvation [x] Completed spiritual assessment [] Other: Impact on Illness or Injury [] Angry [] Fearful [] Anxious [] Often cries [] Exhaustion [] Unable to work [] Unable to attend adventism [] Unable to walk/stand [] Unable to read [] Unable to drive [] Unable to eat/drink [] Unable to sleep [] Unable to be with family [] Patient intubated [] Other: Summary Time spent with patient
--- NOTE | 2022-06-04 14:06 | PC.NURSE ---
[facility] contacted for transport.
--- NOTE | 2022-06-04 14:21 | PC.NURSE ---
[facility] left with patient at 1421. IV lines removed. Tom in place for comfort care. EMS placed patient on 1L NC. O2 at 89% RA.
== END 2022-06-04 14:27 | disposition hospice, home (50) | DRG 280 ==
LOC: ER 19:24 → ICU 19:47
PROVIDERS: Internal Medicine; Internal Medicine Cardiovascular Disease; Admitting Provider Internal Medicine; Emergency Provider Emergency Medicine; PCP Family Medicine; Visit Provider Student in an Organized Health Care Education/Training Program
PROC: 4A023N7 Measurement of Cardiac Sampling and Pressure, Left Heart, Percutaneous Approach (ICD-10-PCS; principal; 2022-05-24 18:30)
DX: I46.9 Cardiac arrest, cause unspecified (principal); I21.09 ST elevation (STEMI) myocardial infarction involving other coronary artery of anterior wall; K72.00 Acute and subacute hepatic failure without coma; N17.9 Acute kidney failure, unspecified; G93.1 Anoxic brain damage, not elsewhere classified; I49.01 Ventricular fibrillation; I25.10 Atherosclerotic heart disease of native coronary artery without angina pectoris; E66.01 Morbid (severe) obesity due to excess calories; Z68.35 Body mass index [BMI] 35.0-35.9, adult; I25.2 Old myocardial infarction; I25.5 Ischemic cardiomyopathy; I48.91 Unspecified atrial fibrillation; E11.65 Type 2 diabetes mellitus with hyperglycemia; E11.40 Type 2 diabetes mellitus with diabetic neuropathy, unspecified; I10 Essential (primary) hypertension; J44.9 Chronic obstructive pulmonary disease, unspecified; D69.6 Thrombocytopenia, unspecified; Z86.73 Personal history of transient ischemic attack (TIA), and cerebral infarction without residual deficits; F17.210 Nicotine dependence, cigarettes, uncomplicated; K80.20 Calculus of gallbladder without cholecystitis without obstruction; Z66 Do not resuscitate; L50.9 Urticaria, unspecified; Z79.4 Long term (current) use of insulin; Z79.51 Long term (current) use of inhaled steroids; Z79.82 Long term (current) use of aspirin; Z51.5 Encounter for palliative care; E78.2 Mixed hyperlipidemia
CPT/HCPCS: 36415; 36416; 36600; 51702; 51798; 70450; 71045; 76705; 76770; 80048; 80051; 80053; 80202; 80503; 81001; 82330; 82607; 82746; 82803; 82805; 82962; 83540; 83550; 83605; 83735; 83880; 84100; 84484; 85025; 85378; 85610; 85730; 86140; 87040; 87070; 87086; 87205; 87635; 87804; 93005; 93306; 93458; 94002; 94003; 94640; 94799; 96361; 96365; 96372; 96375; 96376; 99152; 99153; 99291; A4222; C1769; C1887; C1894; C9113; J0282; J0360; J0692; J1200; J1644; J1650; J1815; J1953; J2250; J2270; J2920; J2930; J3010; J3370; J3411; J3480; J3490; J7030; J7040; J7060; J7120; J7799; Q9967